=== PATIENT | male | born 1935 | race Caucasian/White ===

== ENCOUNTER 2017-05-17 17:03 | Inpatient (IN) | payer MEDICARE, OTHER ==
[~2017-05-17] VITALS: Ht 180.3 cm; Wt 69.9 kg
--- OUTSIDE RECORDS SUMMARY | 2017-05-17 17:11 | XMS REPORT | Continuity Of Care Document ---
Author Author [facility] Organization [facility] Address [address] [place] [address] Phone Care Team Providers Care Computer Lab Aide Name Role Phone AVIVA COOMBS, EARL Headley PP [phone] SID COOMBS, DEMETRIO Jett AT Results Lab Results Visit/Account #[id number] (November 01, 2015 1:27pm - November 13, 2015 12:32pm) Test Result Date/Time HEMOGLOBIN HEMOGLOBIN(13.5-17.5 G/DL) 12.5 G/DL November 05, 2015 5:19am 11.9 G/DL November 12, 2015 5:20am BASIC METABOLIC PANEL GLUCOSE(70-110 MG/DL) 98 MG/DL November 07, 2015 5:15am 99 MG/DL November 12, 2015 5:20am BLOOD UREA NITROGEN(6-20 MG/DL) 22 MG/DL November 07, 2015 5:15am 17 MG/DL November 12, 2015 5:20am CREATININE(0.50-1.20 MG/DL) 0.95 MG/DL November 07, 2015 5:15am 0.92 MG/DL November 12, 2015 5:20am 05667-3: EST GLOMERULAR FILTRATION RATE(Greater than or equal to 60) Greater than or equal to 60 Result Comments: If the patient is of -[place] descent/extraction multiply the eGFR value by 1.212 to obtain the actual eGFR. >=60 mg/dL Normal 30-59 mg/dL Moderate Kidney Disease 15-29 mg/dL Severe Kidney Disease <15 mg/dL Kidney Failure November 07, 2015 5:15am Greater than or equal to 60 Result Comments: If the patient is of -[place] descent/extraction multiply the eGFR value by 1.212 to obtain the actual eGFR. >=60 mg/dL Normal 30-59 mg/dL Moderate Kidney Disease 15-29 mg/dL Severe Kidney Disease <15 mg/dL Kidney Failure November 12, 2015 5:20am BUN CREATININE RATIO(10.0-20.0 RATIO) 23.0 RATIO November 07, 2015 5:15am 18.0 RATIO November 12, 2015 5:20am SODIUM(135-145 MMOL/L) 131 MMOL/L November 07, 2015 5:15am 129 MMOL/L November 12, 2015 5:20am POTASSIUM(3.6-5.0 MMOL/L) 4.5 MMOL/L November 07, 2015 5:15am 4.4 MMOL/L November 12, 2015 5:20am CHLORIDE(101-111 MMOL/L) 96 MMOL/L November 07, 2015 5:15am 98 MMOL/L November 12, 2015 5:20am 2028-9: CO2(21-31 MMOL/L) 28 MMOL/L November 07, 2015 5:15am 31 MMOL/L November 12, 2015 5:20am ANION GAP(8-18) 12 November 07, 2015 5:15am 4 November 12, 2015 5:20am OSMO CALCULATED(270.0-290.0) 266.0 November 07, 2015 5:15am 260.5 November 12, 2015 5:20am CALCIUM(8.5-10.5 MG/DL) 8.8 MG/DL November 07, 2015 5:15am 7.9 MG/DL November 12, 2015 5:20am Allergies and Adverse Reactions Allergies and Adverse Reactions Patient Unit Number: [id number] Agent Type Reaction Severity Status NO KNOWN DRUG ALLERGIES Drug Allergy Unknown Unknown Active Problem List Problem List Visit/Account #[id number] (November 01, 2015 1:27pm - November 13, 2015 12:32pm) Acute Problems: Code/Condition Comments Documented Start Date Documented Resolved Date Code (s) Subdural hematoma ICD10: I62.00 Subdural hematoma ICD9: 432.1 Subdural hematoma SNOMED: 62305828 Subdural hematoma Maxillary sinus fracture ICD10: S02.401A Fracture of maxillary sinus ICD9: 802.4 Fracture of maxillary sinus SNOMED: 406372302 Fracture of maxillary sinus Orbital fracture ICD10: S02.8XXA Fracture of orbit ICD9: 802.8 Fracture of orbit SNOMED: 48159101 Fracture of orbit Seizure after head injury ICD10: R56.1 Seizure after head injury ICD9: 780.33 Seizure after head injury SNOMED: 819924472 Seizure after head injury Anemia, blood loss ICD10: D50.0 Anemia due to blood loss ICD9: 280.0 Anemia due to blood loss SNOMED: 167149806 Anemia due to blood loss Chronic Problems: Alcohol abuse ICD10: F10.10 Alcohol abuse ICD9: 305.00 Alcohol abuse SNOMED: 53731393 Alcohol abuse Hx of essential hypertension ICD10: Z86.79 History of essential hypertension ICD9: V12.59 History of essential hypertension SNOMED: 270717701 History of essential hypertension BPH (benign prostatic hyperplasia) ICD10: N40.0 BPH (benign prostatic hyperplasia) ICD9: 600.00 BPH (benign prostatic hyperplasia) SNOMED: 020445546 BPH (benign prostatic hyperplasia) Patient Unit Number: [id number] Chronic Problems: Code/Condition Comments Documented Start Date Documented Resolved Date Code (s) Hyponatremia ICD10: E87.1 Hyponatremia ICD9: 276.1 Hyponatremia SNOMED: 66443699 Hyponatremia Plan of Care Plan Of Care No Plan Of Care Data. Vital Signs Vital Signs Visit/Account #[id number] (November 01, 2015 1:27pm - November 13, 2015 12:32pm) Sign First Result Last Result Code(s) Blood Pressure 133/ 50 mm[Hg] On November 01, 2015 1:30pm 115/ 58 mm[Hg] On November 13, 2015 4:13am 8480-6 BP Systolic Heart Rate/Pulse Pulse Rate (adult): 72 /min On November 01, 2015 1:30pm Pulse Rate (adult): 55 /min On November 13, 2015 4:13am 8867-4 Heart Rate 8893-0 Pulse rate Respiratory Rate Respiratory Rate: 16 /min On November 01, 2015 1:30pm Respiratory Rate: 18 /min On November 13, 2015 4:13am 9279-1 Respiratory rate Temperature in Fahrenheit Temperature (Fahrenheit): 97.9 [degF] On November 01, 2015 1:30pm Temperature (Fahrenheit): 97.5 [degF] On November 13, 2015 4:13am 8310-5 Body Temperature Functional Status Functional and Cognitive Status No Functional Status Data Medications Home Medications - Medications that the patient was taking prior to arrival at the hospital Visit/Account #[id number] (November 01, 2015 1:27pm - November 13, 2015 12:32pm) Medication Route Sig/Schedule Precondition/Indication Comments/Instructions Codes TENORMIN(ATENOLOL) 25 MG TAB Dose: 25 MG ORAL DAILY Atenolol 25 MG Oral Tablet (RxNorm): 220682 TENORMIN (ATENOLOL) NDC: 34316844150 TAMSULOSIN HCL(TAMSULOSIN HCL) 0.4 MG CAP.ER.24H Dose: 0.8 MG ORAL AT BEDTIME Tamsulosin hydrochloride 0.4 MG Oral Capsule (RxNorm): 437740 TAMSULOSIN HCL (TAMSULOSIN HCL) NDC: 71948652849 TYLENOL(ACETAMINOPHEN) 325 MG TAB Dose: 650 MG ORAL Q4H PAIN OR FEVER Acetaminophen 325 MG Oral Tablet (RxNorm): 806841 TYLENOL (ACETAMINOPHEN) NDC: 33626338128 KEPPRA(LevETIRAcetam) 500 MG TABLET Dose: 1000 MG ORAL TWICE A DAY Levetiracetam 500 MG Oral Tablet [Keppra] (RxNorm): 838865 KEPPRA (LevETIRAcetam) NDC: 94366744444 THERAGRAN(MULTIVITAMINS THERAPEUTIC) 1 TAB TABLET Dose: 1 TAB ORAL DAILY AT [facility] THERAGRAN (MULTIVITAMINS THERAPEUTIC) NDC: 09898786723 FERROUS GLUConate(FERROUS GLUCONATE) 324 MG TABLET Dose: 324 MG ORAL DAILY ferrous gluconate 324 MG Oral Tablet (RxNorm): 302342 FERROUS GLUConate (FERROUS GLUCONATE) NDC: 57383401027 Inpatient/Ordered Medications - Medications administered during hospital visit Visit/Account #[id number] (November 01, 2015 1:27pm - November 13, 2015 12:32pm) Medication Route Sig/Schedule Precondition/Indication Comments/Instructions Codes MILK OF MAGNESIA 400 MG/5 ML(MAGNESIUM HYDROXIDE) 30 ML SUSPENSION Dose: 30 ML ORAL Q4H PRN Reason: CONSTIPATION Label Comments: not for renal patients. Magnesium Hydroxide 80 MG/ML Oral Suspension (RxNorm): 860193 MILK OF MAGNESIA 400 MG/5 ML (MAGNESIUM HYDROXIDE) NDC: 90683447512 TENORMIN(ATENOLOL) 25 MG TAB Dose: 25 MG ORAL DAILY Label Comments: MAY INCREASE FALL RISK Atenolol 25 MG Oral Tablet (RxNorm): 382450 TENORMIN (ATENOLOL) NDC: 11812552607 KEPPRA(LevETIRAcetam) 500 MG TAB Dose: 1000 MG ORAL TWICE A DAY Label Comments: DO NOT CRUSH MAY INCREASE FALL RISK Levetiracetam 500 MG Oral Tablet [Keppra] (RxNorm): 709661 KEPPRA (LevETIRAcetam) NDC: 69297599965 THERAGRAN(MULTIVITAMINS THERAPEUTIC) 1 TAB TAB Dose: 1 TAB ORAL DAILY AT [facility] THERAGRAN (MULTIVITAMINS THERAPEUTIC) NDC: 39349204005 FLOMAX(TAMSULOSIN HCL) 0.4 MG CAP Dose: 0.8 MG ORAL AT BEDTIME Label Comments: MAY INCREASE FALL RISK Tamsulosin hydrochloride 0.4 MG Oral Capsule (RxNorm): 497640 FLOMAX (TAMSULOSIN HCL) NDC: 07585274135 FERGON(FERROUS GLUCONATE) 324 MG TAB Dose: 324 MG ORAL DAILY Label Comments: TAKE WITH FOOD IF GI UPSET OCCURS. OTHERWISE TAKE BETWEEN MEALS FOR MAXIMUM ABSORPTION. ferrous gluconate 324 MG Oral Tablet (RxNorm): 438935 FERGON (FERROUS GLUCONATE) NDC: 57289552399 AMBIEN(ZOLPIDEM TARTRATE) 5 MG TAB Dose: 2.5 MG ORAL AT BEDTIME Label Comments: MAY INCREASE FALL RISK Zolpidem tartrate 5 MG Oral Tablet (RxNorm): 523221 AMBIEN (ZOLPIDEM TARTRATE) NDC: 88444549650 NORVASC(AmLODIpine BESYLATE) 5 MG TAB Dose: 5 MG ORAL DAILY Label Comments: MAY INCREASE FALL RISK Amlodipine 5 MG Oral Tablet [Norvasc] (RxNorm): 873839 NORVASC (AmLODIpine BESYLATE) NDC: 59126247495 ZESTRIL(LISINOPRIL) 40 MG TAB Dose: 40 MG ORAL DAILY Label Comments: MAY INCREASE FALL RISK Lisinopril 40 MG Oral Tablet (RxNorm): 278093 ZESTRIL (LISINOPRIL) NDC: 85130865795 Discharge Medications - Medications that patient should continue to take. Review with physician Visit/Account #[id number] (November 01, 2015 1:27pm - November 13, 2015 12:32pm) Medication Route Sig/Schedule Precondition/Indication Comments/Instructions Codes TENORMIN(ATENOLOL) 25 MG TAB Dose: 25 MG ORAL DAILY Atenolol 25 MG Oral Tablet (RxNorm): 472840 TENORMIN (ATENOLOL) NDC: 75782869497 TAMSULOSIN HCL(TAMSULOSIN HCL) 0.4 MG CAP.ER.24H Dose: 0.8 MG ORAL AT BEDTIME Tamsulosin hydrochloride 0.4 MG Oral Capsule (RxNorm): 656141 TAMSULOSIN HCL (TAMSULOSIN HCL) NDC: 52003932838 TYLENOL(ACETAMINOPHEN) 325 MG TAB Dose: 650 MG ORAL Q4H PAIN OR FEVER Acetaminophen 325 MG Oral Tablet (RxNorm): 099578 TYLENOL (ACETAMINOPHEN) NDC: 79428684469 THERAGRAN(MULTIVITAMINS THERAPEUTIC) 1 TAB TABLET Dose: 1 TAB ORAL DAILY AT [facility] THERAGRAN (MULTIVITAMINS THERAPEUTIC) NDC: 09599476417 FERROUS GLUConate(FERROUS GLUCONATE) 324 MG TABLET Dose: 324 MG ORAL DAILY ferrous gluconate 324 MG Oral Tablet (RxNorm): 496435 FERROUS GLUConate (FERROUS GLUCONATE) NDC: 15467667336 NORVASC(AmLODIpine BESYLATE) 5 MG TAB Dose: 5 MG ORAL DAILY Amlodipine 5 MG Oral Tablet [Norvasc] (RxNorm): 839959 NORVASC (AmLODIpine BESYLATE) NDC: 37961787600 KEPPRA(LevETIRAcetam) 500 MG TABLET Dose: 1000 MG ORAL TWICE A DAY Levetiracetam 500 MG Oral Tablet [Keppra] (RxNorm): 535360 KEPPRA (LevETIRAcetam) NDC: 27212406992 Prinivil(LISINOPRIL) 40 MG TABLET Dose: 40 MG ORAL DAILY Lisinopril 40 MG Oral Tablet (RxNorm): 566653 Prinivil (LISINOPRIL) NDC: 92477307033 Ambien Carter(ZOLPIDEM TARTRATE) 5 MG TABLET Dose: 2.5 MG ORAL AT BEDTIME Zolpidem tartrate 5 MG Oral Tablet [Ambien] (RxNorm): 006131 Ambien Carter (ZOLPIDEM TARTRATE) [facility]: [id number] History Of Encounters Encounters Visit/Account #[id number] (November 01, 2015 1:27pm - November 13, 2015 12:32pm) Account Status Physican Of Record Reason For Visit Visit Diagnosis Start Date/Time Stop Date/Time IN DEMETRIO LAU MD 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 Discharge Instructions Discharge Instructions Visit/Account #[id number] (November 01, 2015 1:27pm - November 13, 2015 12:32pm) DISCHARGE INSTRUCTIONS Physician Documentation PROVIDER INSTRUCTIONS Discharge Diet As Tolerated Discharge Activity/Weight Bearing Status Full weight bearing Activity as tolerated Comfort Management See discharge medication list Bowel Care Read & follow "Guidelines for Managing Constipation" Other Discharge Instructions No driving until seizure free for 6 months. REASON TO CALL PROVIDER Notify Physician if: You have the following: - temperature greater than 101.5 degrees Fahrenheit - uncontrolled pain - persistent nausea/vomiting - any questions or concerns FOLLOW UP APPOINTMENTS Follow Up With Edwin (FU on facial fx - 12/03/15 @ 2:15 Chris (neurosurgery) in 3-4 weeks for FU on ICH--repeat CT scan and Keppra dosing as directed. Dr. Earl Han- 11/20/15 @ 1:30 IP or OP alcohol tx through [facility]. Also AA. [facility] for residential and speech therapy Follow-up tests/procedures/outpatient needs: BMP at Dr. Han office. Therapy Appointment [facility] to provide residential and speech therapy. A nurse will call to set up a time to see you at home. If you have questions for Home Health please call [phone]. NURSING & THERAPY INSTRUCTIONS Occupational Therapy Continue your arm exercises and coord activities everyday. Sit when you shower for safety. No driving until OK'd by physician. Take Care! Nandini Perkins , OTR/L Physical Therapy Take your time when you are up walking. Use the handrail near your stairs and take your time to go up and down the stairs. Keep progressing your balance with the written balance exercises, using a sturdy surface such as kitchen sink/countertop for safety. When you start going to the gym again, make sure you have someone with you to assist you for safety. Take Care. Maliha Mcgee, PT, DPT. Speech Therapy Continue doing activities to support cognition and memory. Keep your mind active by playing games and doing activities that make you think. Write down information to help you recall it. Look over checks to make sure they are filled out correctly. Have supervision with medication management. Take care. Jim Arana MS [facility] Social History Social History No Social History Data. Immunizations Immunizations Patient Unit Number: [id number] Immunizations No immunizations recorded.
--- OUTSIDE RECORDS SUMMARY | 2017-05-17 17:12 | XMS REPORT | Continuity of Care Document ---
Author Author [facility] - [facility] Address Unknown Phone Unavailable Allergies Active Description Code Type Severity Reaction Onset Reported/Identified Relationship to Patient Clinical Status Yes No Known Drug Allerg N/A N/A Yes NKA Miscellaneous Allergy N/ A N/A 01/05/2009 Yes No Known Drug Allergy 153 Miscellaneous Allergy N/A N/A 07/08/2014 Medications There is no data. 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 08/25/2013 WM IRVIN 4414 ABDOM AORTIC ANEURYSM 10/25/2013 EARL CHICAS 7295 PAIN IN LIMB 10/27/2013 EARL CHICAS 7295 PAIN IN LIMB 11/01/2013 EARL CHICAS 24577 PAINFUL RESPIRATION 11/04/2013 EARL CHICAS 15605 PAINFUL RESPIRATION 03/23/2014 TAMIKA YOUNG 9190 ABRASION NEC 05/13/2014 ASMITA DAVIES ( A 7862 COUGH 08/30/2014 EARL CHICAS 03213 ROTATOR CUFF SYND NOS 09/05/2014 WM IRVIN 4414 ABDOM AORTIC ANEURYSM 09/26/2014 EARL CHICAS 7802 SYNCOPE AND COLLAPSE 09/29/2014 EARL CHICAS 7802 SYNCOPE AND COLLAPSE 10/02/2014 UZIEL TIRADO 27501 HEAD INJURY NOS 01/06/2015 KEKE TIAN 21134 OPEN WOUND OF FOREARM 01/16/2015 PEDRO VASQUEZ V5832 ATTN REMOVAL OF SUTURES 03/15/2015 PEDRO VASQUEZ [id number] LACERATION WITHOUT FOREIGN BODY OF LEFT EYELID AND PERIOCULAR AREA, INITIAL ENCOUNTER 03/15/2015 PEDRO VASQUEZ [id number] LACERATION WITHOUT FOREIGN BODY OF OTHER PART OF HEAD, INITIAL ENCOUNTER 03/15/2015 PEDRO VASQUEZ [id number] FALL ON SAME LEVEL, UNSPECIFIED, INITIAL ENCOUNTER 03/15/2015 PEDRO VASQUEZ S [id number] STRIKING AGAINST OR STRUCK BY OTHER OBJECTS, INITIAL ENCOUNTER 03/15/2015 PEDRO VASQUEZ S [id number] UNSPECIFIED PLACE IN SINGLE-FAMILY (PRIVATE) HOUSE THE PLACE OF OCCURRENCE OF THE EXTERNAL CAUSE 03/15/2015 PEDRO VASQUEZ S Y9301 ACTIVITY, WALKING, MARCHING AND HIKING 03/15/2015 PEDRO VASQUEZ S Y998 OTHER EXTERNAL CAUSE STATUS 09/17/2015 WM IRVIN I71.4 ABDOMINAL AORTIC ANEURYSM, WITHOUT RUPTURE 09/17/2015 WM IRVIN S K40.90 UNILATERAL INGUINAL HERNIA, WITHOUT OBSTRUCTION OR GANGRENE, NOT SPECIFIED RECURRENT 09/17/2015 WM IRVIN K57.30 DIVERTICULOSIS OF LARGE INTESTINE WITHOUT PERFORATION OR ABSCESS WITHOUT BLEEDING 09/17/2015 WM IRVIN K59.00 CONSTIPATION, UNSPECIFIED 09/17/2015 WM IRVIN S K86.1 OTHER CHRONIC PANCREATITIS 09/17/2015 WM IRVIN S N20.0 CALCULUS OF KIDNEY 10/23/2015 MAGDALENA GARSIA A S00.81XA ABRASION OF OTHER PART OF HEAD, INITIAL ENCOUNTER 10/23/2015 MAGDALENA GARSIA S S02.3XXA FALL INJURY, CONFUSION 10/23/2015 MAGDALENA GARSIA P S02.401A MAXILLARY FRACTURE, UNSPECIFIED SIDE, INITIAL ENCOUNTER FOR CLOSED FRACTURE 10/23/2015 MAGDALENA GARSIA S 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, INITIAL ENCOUNTER 10/23/2015 MAGDALENA GARSIA L S W18.39XA OTHER FALL ON SAME LEVEL, INITIAL ENCOUNTER 10/23/2015 MAGDALENA GARSIA L S Y92.[address]ACE OF OCCURRENCE OF THE EXTERNAL CAUSE 10/23/2015 MAGDALENA GARSIA S Y93.01 ACTIVITY, WALKING, MARCHING AND HIKING 10/23/2015 MAGDALENA GARSIA S Y99.8 OTHER EXTERNAL CAUSE STATUS 10/23/2015 MAGDALENA GARSIA S Z79.899 OTHER JAIL (CURRENT) DRUG THERAPY 11/19/2015 EARL CHICAS P E87.1 HYPO-OSMOLALITY AND HYPONATREMIA 12/06/2015 JUAN LUIS COELHO I62.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, UNSPECIFIED 12/06/2015 JUAN LUIS COELHO S06.5X0D 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, SUBSEQUENT ENCOUNTER 12/06/2015 JUAN LUIS COELHO S Z09 ENCOUNTER FOR FOLLOW-UP EXAMINATION AFTER COMPLETED TREATMENT FOR CONDITIONS OTHER THAN MALIGNANT NEOPLASM 12/06/2015 JUAN LUIS COELHO P 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 01/30/2016 EARL CHICAS P R30.0 DYSURIA 05/30/2016 EARL CHICAS S I65.23 OCCLUSION AND STENOSIS OF BILATERAL CAROTID ARTERIES 05/30/2016 EARL CHICAS S R01.1 CARDIAC MURMUR, UNSPECIFIED 05/30/2016 EARL CHICAS P R09.89 OTHER SPECIFIED SYMPTOMS AND SIGNS INVOLVING THE CIRCULATORY AND RESPIRATORY SYSTEMS 08/18/2016 EARL CHICAS S M50.11 CERVICAL DISC DISORDER WITH RADICULOPATHY, HIGH CERVICAL REGION 08/18/2016 EARL CHICAS S M50.122 CERVICAL DISC DISORDER AT C5-C6 LEVEL WITH RADICULOPATHY 08/18/2016 EARL CHICAS S M50.123 CERVICAL DISC DISORDER AT C6-C7 LEVEL WITH RADICULOPATHY 08/18/2016 EARL CHICAS S M89.38 HYPERTROPHY OF BONE, OTHER SITE 08/18/2016 EARL CHICAS S 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 08/18/2016 EARL CHICAS P R20.0 ANESTHESIA OF SKIN 09/19/2016 EARL CHICAS S K40.20 BILATERAL INGUINAL HERNIA, WITHOUT OBSTRUCTION OR GANGRENE, NOT SPECIFIED RECURRENT 09/19/2016 EARL CHICAS S M51.36 OTHER INTERVERTEBRAL DISC DEGENERATION, LUMBAR REGION 09/19/2016 EARL CHICAS S 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 <section xmlns="urn:hl7-org:v3" xmlns:xsi="http:// www.[employer].org/2001/XMLSchema-instance"> <templateId root= "[email or web address]" /> <templateId root= "[id number]" /> <code codeSystemName="LOINC" codeSystem= "[id number]" code="03603-1" displayName="Results" /> <title>Results< /title> <text> <table> <thead> <tr> <th>Test</th> <th>Result</th> <th>Range</th> </tr> </thead> < tbody> <tr> <th colspan="10">CREATININE - 08/25/13 09:10</th> </tr> <tr> <td>CREATININE</td> <td>0.8 mg/dl</td > <td>0.6-1.3</td> </tr> <tr> <th colspan="10"> LIPID PANEL - 03/06/14 08:55</th> </tr> <tr> <td> TRIGLYCERIDES</td> <td>57 mg/dl</td> <td>0-150</td> </ tr> <tr> <td>CHOLESTEROL</td> <td>154 mg/dl</td> <td>0-200</td> </tr> <tr> <td>HDL CHOLESTEROL</td> <td>62 mg/dl</td> <td>40-</td> </tr> <tr> <td>LDL</td> <td>81 mg/dl</td> <td>0-130</td> </tr> <tr> < colspan="10">GLUCOSE - 03/06/14 08:55</th> </tr > <tr> <td>GLUCOSE</td> <td>100 mg/dl</td> <td >70-110</td> </tr> <tr> < colspan="10">INFLUENZA - 17:05</th> </tr> <tr> <td>Serology</td> < td> </td> <td /> </tr> <tr> < colspan="10"> BUN - 09/05/14 08:10</th> </tr> <tr> <td>BUN</td> <td>8 mg/dl</td> <td>7-18</td> </tr> <tr> < colspan="10">CREATININE - 09/05/14 08:10</th> </tr> <tr> <td>CREATININE</td> <td>0.9 mg/dl</td> <td>0.6-1.3</td> </tr> <tr> < colspan="10">COMPREHENSIVE METABOL - 15:15</th> </tr> <tr> <td>CREATININE</td> <td >1.0 mg/dl</td> <td>0.6-1.3</td> </tr> <tr> <td> SODIUM</td> <td>130 mmol/L</td> <td>136-145</td> </tr> <tr> <td>TOTAL BILIRUBIN</td> <td>0.5 mg/dl</td> <td>0.0-1.0</td> </tr> <tr> <td>TOTAL PROTEIN</td> <td>6.9 g/dl</td> <td>6.4-8.2</td> </tr> <tr> <td>ALBUMIN</td> <td>3.8 g/dl</td> <td>3.4-5.0</td> </tr> <tr> <td>ALK. PHOSPHATASE</td> <td>59 U/L</ td> <td>50-136</td> </tr> <tr> <td>BUN</td> <td>9 mg/dl</td> <td>7-18</td> </tr> <tr> <td>CALCIUM</td> <td>8.7 mg/dl</td> <td>8.5-10.1</td> < /tr> <tr> <td>CHLORIDE</td> <td>94 mmol/L</td> <td>98-107</td> </tr> <tr> <td>CO2</td> <td> 27.0 mmol/L</td> <td>21.0-32.0</td> </tr> <tr> < td>GLUCOSE</td> <td>93 mg/dl</td> <td>70-110</td> </tr > <tr> <td>POTASSIUM</td> <td>4.5 mmol/L</td> <td>3.5-5.1</td> </tr> <tr> <td>AST</td> <td>30 U/L</td> <td>15-37</td> </tr> <tr> <td>ALT</td> <td>40 U/L</td> <td>12-78</td> </tr> <tr> <td>AGAP</td> <td>13.5 </td> <td>6.0-16.0</td> </ tr> <tr> <td>BN/CR</td> <td>9.0 </td> <td>6.0- 20.0</td> </tr> <tr> <th colspan="10">[facility] - 05/05/15 15: 15</th> </tr> <tr> <td>HTSH</td> <td>1.31 uiU/ml </td> <td>0.34-4.82</td> </tr> <tr> <th colspan= "10">CBC/ AUTO DIFF - 09/26/14 15:15</th> </tr> <tr> <td> WHITE BLOOD COUNT</td> <td>5.13 10</td> <td>4.60-10.20</td> </tr> <tr> <td>HEMATOCRIT</td> <td>37.9 %</td > <td>42.0-52.0</td> </tr> <tr> <td>HEMOGLOBIN</ td> <td>13.6 g/dl</td> <td>14.0-18.0</td> </tr> <tr> <td>PLATELET COUNT</td> <td>246 10</td> <td>142- 424</td> </tr> <tr> <td>RBC</td> <td>3.65 10</td > <td>4.70-6.10</td> </tr> <tr> <td>MCV</td> <td>103.8 fl</td> <td>80.0-100.0</td> </tr> <tr> <td>MCH</td> <td>37.3 pg</td> <td>26.0-34.0</td> </tr> <tr> <td>MCHC</td> <td>35.9 g/dl</td> <td>29.0-37.0</td> </tr> <tr> <td>RDW</td> < td>12.0 %</td> <td>11.5-14.5</td> </tr> <tr> <td>MPV</td> <td>8.10 fl</td> <td /> </tr> <tr > <td>GRAN%</td> <td>57.9 %</td> <td>37.0- 80.0</td> </tr> <tr> <td>LYMPH%</td> <td> 18.50 %</td> <td>10.00-50.00</td> </tr> <tr> <td>MONO%</td> <td>19.70 %</td> <td>0.00-12.00</td> </tr> <tr> <td>EOS%</td> <td>2.90 %</td > <td>0.00-7.00</td> </tr> <tr> <td>BASO%</ td> <td>1.00 %</td> <td>0.00-2.50</td> </tr> <tr> <td>GRAN#</td> <td>2.97 10</td> <td>2.00-6.90< /td> </tr> <tr> <td>LYMPH#</td> <td>0.95 10</td > <td>0.60-3.40</td> </tr> <tr> <td>MONO#</td> <td>1.01 10</td> <td>0.00-0.90</td> </tr> <tr> <td>EOS#</td> <td>0.15 10</td> <td>0.00-0.50</td> </tr> <tr> <td>BASO#</td> <td>0.05 10</td> <td>0.00-0.20</td> </tr> <tr> <td>MAN DIFF</td> <td>N </td> <td>-</td> </tr> <tr> <td>SEGS</td> <td>64 %</td> <td>40-60</td> </tr> <tr> <td>BANDS</td> <td>0 %</td> < td>0-5</td> </tr> <tr> <td>LYMPHS</td> <td>21 &# 37;</td> <td>20-40</td> </tr> <tr> <td>JUAN A LYMP< /td> <td>1 %</td> <td>0-0</td> </tr> <tr> <td>MONOS</td> <td>13 %</td> <td>4-8</td> < /tr> <tr> <td>EOS</td> <td>1 %</td> <td>0- 5</td> </tr> <tr> <td>BASOS</td> <td>0 %</td > <td>0-2</td> </tr> <tr> <td>MACROCYT</td> <td>1+ </td> <td /> </tr> <tr> <th colspan ="10">ECHOCARDIOGRAM COMPLETE - 09/29/14 08:52</th> </tr> <tr> <td>CSECHOAD</td> <td>see batch scanned documents </td> <td /> </tr> <tr> <th colspan="10">BUN - 09/17/15 07:40 </th> </tr> <tr> <td>BUN</td> <td>13 mg/dl</td> <td>7-18</td> </tr> <tr> <th colspan="10"> CREATININE - 09/17/15 07:40</th> </tr> <tr> <td> CREATININE</td> <td>1.0 mg/dl</td> <td>0.6-1.3</td> </ tr> <tr> <th colspan="10">TROPONIN I - 10/23/15 18:20</th> </tr> <tr> <td>TROP I</td> <td><0.03 ng/ml</td> <td>0.0-0.1</td> </tr> <tr> <th colspan="10">D- DIMER QUANTITATIVE - 10/23/15 18:20</th> </tr> <tr> <td> Chemistry</td> <td> </td> <td /> </tr> <tr> <th colspan="10">COMPREHENSIVE METABOL - 10/23/15 18:20</th> </tr> <tr> <td>CREATININE</td> <td>1.1 mg/dl</td> < td>0.6-1.3</td> </tr> <tr> <td>SODIUM</td> <td> 130 mmol/L</td> <td>136-145</td> </tr> <tr> <td> TOTAL BILIRUBIN</td> <td>0.3 mg/dl</td> <td>0.0-1.0</td> </tr> <tr> <td>TOTAL PROTEIN</td> <td>6.5 g/dl</td> <td>6.4-8.2</td> </tr> <tr> <td>ALBUMIN</td> <td>3.6 g/dl</td> <td>3.4-5.0</td> </tr> <tr> <td>ALK. PHOSPHATASE</td> <td>48 U/L</td> <td>50-136</ td> </tr> <tr> <td>BUN</td> <td>16 mg/dl</td> <td>7-18</td> </tr> <tr> <td>CALCIUM</td> <td>8.3 mg/dl</td> <td>8.5-10.1</td> </tr> <tr> <td>CHLORIDE</td> <td>94 mmol/L</td> <td>98-107</td> </tr> <tr> <td>CO2</td> <td>25.7 mmol/L</td> <td>21.0-32.0</td> </tr> <tr> <td>GLUCOSE</td> <td>92 mg/dl</td> <td>70-110</td> </tr> <tr> <td>POTASSIUM</td> <td>4.6 mmol/L</td> <td>3.5-5.1</td> </tr> <tr> <td>AST</td> <td>34 U/L</td> <td> 15-37</td> </tr> <tr> <td>ALT</td> <td>32 U/L</ td> <td>12-78</td> </tr> <tr> <td>AGAP</td> <td>14.9 </td> <td>6.0-16.0</td> </tr> <tr> <td>BN/CR</td> <td>14.4 </td> <td>6.0-20.0</td> </tr > <tr> <th colspan="10">HTSH - 10/23/15 18:20</th> </tr> <tr> <td>HTSH</td> <td>1.29 uiU/ml</td> <td> 0.34-4.82</td> </tr> <tr> <th colspan="10">CKMB - 18:20</th> </tr> <tr> <td>CKMB</td> <td>4.0 ng/ml</td> <td>0-6.5</td> </tr> <tr> <th colspan ="10">NATRIURETIC PEPTIDE - 10/23/15 18:20</th> </tr> <tr> <td>Chemistry</td> <td> </td> <td /> </tr> < tr> <th colspan="10">CBC/ AUTO DIFF - 10/23/15 18:20</th> </tr> <tr> <td>WHITE BLOOD COUNT</td> <td>5.27 10</td> <td>4.60-10.20</td> </tr> <tr> <td>HEMATOCRIT</td> <td>35.2 %</td> <td>42.0-52.0</td> </tr> <tr > <td>HEMOGLOBIN</td> <td>12.8 g/dl</td> <td>14.0- 18.0</td> </tr> <tr> <td>PLATELET COUNT</td> <td >215 10</td> <td>142-424</td> </tr> <tr> <td>RBC </td> <td>3.38 10</td> <td>4.70-6.10</td> </tr> <tr> <td>MCV</td> <td>104.1 fl</td> <td>80.0-100.0</ td> </tr> <tr> <td>MCH</td> <td>37.9 pg</td> <td>26.0-34.0</td> </tr> <tr> <td>MCHC</td> <td>36.4 g/dl</td> <td>29.0-37.0</td> </tr> <tr> <td>RDW</td> <td>12.1 %</td> <td>11.5-14.5</td> </tr> <tr> <td>MPV</td> <td>8.20 fl</td> < td /> </tr> <tr> <td>GRAN%</td> <td>52.4 &# 37;</td> <td>37.0-80.0</td> </tr> <tr> <td>LYMPH %</td> <td>23.00 %</td> <td>10.00-50.00</td> </ tr> <tr> <td>MONO%</td> <td>20.10 %</td> <td>0.00-12.00</td> </tr> <tr> <td>EOS%</td> <td>3.60 %</td> <td>0.00-7.00</td> </tr> <tr> <td>BASO%</td> <td>0.90 %</td> <td>0.00-2.50< /td> </tr> <tr> <td>GRAN#</td> <td>2.76 10</td> <td>2.00-6.90</td> </tr> <tr> <td>LYMPH#</td> <td>1.21 10</td> <td>0.60-3.40</td> </tr> <tr> <td>MONO#</td> <td>1.06 10</td> <td>0.00-0.90</td> </tr> <tr> <td>EOS#</td> <td>0.19 10</td> <td>0.00-0.50</td> </tr> <tr> <td>BASO#</td> <td>0.05 10</td> <td>0.00-0.20</td> </tr> <tr> < td>MAN DIFF</td> <td>N </td> <td>-</td> </tr> <tr> <td>SEGS</td> <td>56 %</td> <td>40-60</td> </tr> <tr> <td>BANDS</td> <td> 2 %</td> <td>0-5</td> </tr> <tr> <td>LYMPHS< /td> <td>25 %</td> <td>20-40</td> </tr> <tr > <td>JUAN A LYMP</td> <td>0 %</td> <td>0-0</td> </tr> <tr> <td>MONOS</td> <td>15 %</td> <td>4-8</td> </tr> <tr> <td>EOS</td> <td>2 & #37;</td> <td>0-5</td> </tr> <tr> <td>BASOS</td > <td>0 %</td> <td>0-2</td> </tr> <tr> <td>POIKILO</td> <td>SMALL </td> <td /> </tr> <tr> <td>MACROCYT</td> <td>1+ </td> <td /> </tr> <tr> <th colspan="10">CPK TOTAL - 10/23/15 18:20</th> </tr> <tr> <td>CPK TOTAL</td> <td>77 U/L</td> <td>21-232</td> </tr> <tr> <th colspan="10"> ECHOCARDIOGRAM COMPLETE - 05/30/16 13:18</th> </tr> <tr> <td>CSECHOAD</td> <td>See scanned documents. </td> <td /> </tr> <tr> <th colspan="10">MICROALBUMIN - 10/03/16 08:35</ th> </tr> <tr> <td>MICR ALB</td> <td>10 mg/l</td > <td>0-20</td> </tr> <tr> <td>UCREAT</td> <td>50 mg/dl</td> <td>10-300</td> </tr> <tr> <td>A:C</td> <td>20 mg/G</td> <td>-<=30</td> </tr > <tr> <th colspan="10">URINALYSIS - 10/03/16 08:35</th> </tr> <tr> <td>SPECIFIC GRAVITY</td> <td>1.015 </td> <td /> </tr> <tr> <td>COLOR</td> <td> YELLOW </td> <td>YELLOW</td> </tr> <tr> <td> CLARITY</td> <td>CLEAR </td> <td>CLEAR</td> </tr> <tr> <td>GLUCOSE</td> <td>NEGATIVE mg/dl</td> <td> NEGATIVE</td> </tr> <tr> <td>BILI</td> <td> NEGATIVE </td> <td>NEGATIVE</td> </tr> <tr> <td> KETONE</td> <td>NEGATIVE </td> <td>NEGATIVE</td> </tr> <tr> <td>PH</td> <td>7.5 </td> <td>5.0-7.5</ td> </tr> <tr> <td>PROTEIN</td> <td>NEGATIVE </ td> <td>NEGATIVE</td> </tr> <tr> <td>UROBILI</td > <td>0.2 mg/dl</td> <td>0.2-1.0</td> </tr> <tr > <td>NITRITE</td> <td>NEGATIVE </td> <td>NEGATIVE</ td> </tr> <tr> <td>BLOOD</td> <td>NEGATIVE </td > <td>NEGATIVE</td> </tr> <tr> <td>LEUKOCYT</td > <td>NEGATIVE </td> <td>NEGATIVE</td> </tr> <tr > <td>WBC</td> <td>NONE </td> <td>NONE SEEN</td> </tr> <tr> <td>RBC</td> <td>NONE </td> <td >NONE SEEN</td> </tr> <tr> <td>BACTERIA</td> <td >NEGATIVE /LPF</td> <td>NONE SEEN</td> </tr> <tr> <td>SQ EPI</td> <td>NONE /LPF</td> <td>NONE SEEN</td> </tr> <tr> <th colspan="10">CBC/ AUTO DIFF - 10/03/16 08:35</ th> </tr> <tr> <td>WHITE BLOOD COUNT</td> <td> 4.43 10</td> <td>4.60-10.20</td> </tr> <tr> <td> HEMATOCRIT</td> <td>40.1 %</td> <td>42.0-52.0</td> </tr> <tr> <td>HEMOGLOBIN</td> <td>14.0 g/dl</td> <td>14.0-18.0</td> </tr> <tr> <td>PLATELET COUNT</td > <td>206 10</td> <td>142-424</td> </tr> <tr> <td>RBC</td> <td>3.90 10</td> <td>4.70-6.10</td> </tr> <tr> <td>MCV</td> <td>102.8 fl</td> < td>80.0-100.0</td> </tr> <tr> <td>MCH</td> <td> 35.9 pg</td> <td>26.0-34.0</td> </tr> <tr> <td> MCHC</td> <td>34.9 g/dl</td> <td>29.0-37.0</td> </tr> <tr> <td>RDW</td> <td>12.9 %</td> <td>11.5 -14.5</td> </tr> <tr> <td>MPV</td> <td>8.40 fl</ td> <td /> </tr> <tr> <td>GRAN%</td> <td>32.3 %</td> <td>37.0-80.0</td> </tr> <tr> <td>LYMPH%</td> <td>42.20 %</td> <td>10.00-50.00 </td> </tr> <tr> <td>MONO%</td> <td>20.30 &# 37;</td> <td>0.00-12.00</td> </tr> <tr> <td>EOS& #37;</td> <td>4.10 %</td> <td>0.00-7.00</td> </tr> <tr> <td>BASO%</td> <td>1.10 %</td> < td>0.00-2.50</td> </tr> <tr> <td>GRAN#</td> <td> 1.43 10</td> <td>2.00-6.90</td> </tr> <tr> <td> LYMPH#</td> <td>1.87 10</td> <td>0.60-3.40</td> </tr> <tr> <td>MONO#</td> <td>0.90 10</td> <td>0.00- 0.90</td> </tr> <tr> <td>EOS#</td> <td>0.18 10</ td> <td>0.00-0.50</td> </tr> <tr> <td>BASO#</td > <td>0.05 10</td> <td>0.00-0.20</td> </tr> <tr > <td>MAN DIFF</td> <td>N </td> <td>- </td> </tr> <tr> <td>SEGS</td> <td>37 %</ td> <td>40-60</td> </tr> <tr> <td>BANDS</td> <td>1 %</td> <td>0-5</td> </tr> <tr> <td>LYMPHS</td> <td>45 %</td> <td>20-40</td> </tr> <tr> <td>JUAN A LYMP</td> <td>0 %</td> <td>0 -0</td> </tr> <tr> <td>MONOS</td> <td>13 %</ td> <td>4-8</td> </tr> <tr> <td>EOS</td> <td>3 %</td> <td>0-5</td> </tr> <tr> <td> BASOS</td> <td>1 %</td> <td>0-2</td> </tr> < tr> <td>PLTMORPH</td> <td>NORMAL </td> <td /> </tr> <tr> <td>MACROCYT</td> <td>1+ </td> <td /> </tr> <tr> <th colspan="10">[facility] - 08:35</th> </tr> <tr> <td>CREATININE</td> <td>1.2 mg/dl</td> <td>0.6-1.3</td> </tr> <tr> <td>SODIUM</td> <td>136 mmol/L</td> <td>136-145</td> </tr> <tr> <td>TOTAL BILIRUBIN</td> <td>0.6 mg/dl</td> <td>0.0-1.0</td> </tr> <tr> <td>TOTAL PROTEIN</ td> <td>7.1 g/dl</td> <td>6.4-8.2</td> </tr> <tr > <td>ALBUMIN</td> <td>4.0 g/dl</td> <td>3.4-5.0</td > </tr> <tr> <td>ALK. PHOSPHATASE</td> <td>55 U/ L</td> <td>50-136</td> </tr> <tr> <td>BUN</td> <td>11 mg/dl</td> <td>7-18</td> </tr> <tr> <td>CALCIUM</td> <td>8.7 mg/dl</td> <td>8.5-10.1</td> </tr> <tr> <td>CHLORIDE</td> <td>99 mmol/L</td> <td>98-107</td> </tr> <tr> <td>CO2</td> <td>29.9 mmol/L</td> <td>21.0-32.0</td> </tr> <tr> <td>GLUCOSE</td> <td>102 mg/dl</td> <td>70-110</td> </tr> <tr> <td>POTASSIUM</td> <td>3.8 mmol/L</td> <td>3.5-5.1</td> </tr> <tr> <td>AST</td> <td>24 U/L</td> <td>15-37</td> </tr> <tr> <td> ALT</td> <td>21 U/L</td> <td>12-78</td> </tr> < tr> <td>AGAP</td> <td>10.9 </td> <td>6.0-16.0</td> </tr> <tr> <td>BN/CR</td> <td>9.2 </td> <td>6.0-20.0</td> </tr> <tr> <th colspan="10">LIPID PANEL - 10/03/16 08:35</th> </tr> <tr> <td>TRIGLYCERIDES< /td> <td>110 mg/dl</td> <td>0-150</td> </tr> <tr > <td>CHOLESTEROL</td> <td>173 mg/dl</td> <td>0-200</ td> </tr> <tr> <td>HDL CHOLESTEROL</td> <td>63 mg/dl</td> <td>40-</td> </tr> <tr> <td>LDL</td> <td>88 mg/dl</td> <td>0-130</td> </tr> <tr> <th colspan="10">URINALYSIS - 05/07/17 13:25</th> </tr> <tr > <td>SPECIFIC GRAVITY</td> <td>1.3015 </td> <td /> </tr> <tr> <td>COLOR</td> <td>YELLOW </td> <td>YELLOW</td> </tr> <tr> <td>CLARITY</td> <td>CLEAR </td> <td>CLEAR</td> </tr> <tr> <td> GLUCOSE</td> <td>NEGATIVE mg/dl</td> <td>NEGATIVE</td> </tr> <tr> <td>BILI</td> <td>NEGATIVE </td> < td>NEGATIVE</td> </tr> <tr> <td>KETONE</td> <td> NEGATIVE </td> <td>NEGATIVE</td> </tr> <tr> <td> PH</td> <td>7.5 </td> <td>5.0-7.5</td> </tr> <tr > <td>PROTEIN</td> <td>NEGATIVE </td> <td>NEGATIVE</ td> </tr> <tr> <td>UROBILI</td> <td>0.2 mg/dl</ td> <td>0.2-1.0</td> </tr> <tr> <td>NITRITE</td > <td>NEGATIVE </td> <td>NEGATIVE</td> </tr> <tr > <td>BLOOD</td> <td>NEGATIVE </td> <td>NEGATIVE</td > </tr> <tr> <td>LEUKOCYT</td> <td>NEGATIVE </td > <td>NEGATIVE</td> </tr> <tr> <td>WBC</td> <td>NONE </td> <td>NONE SEEN</td> </tr> <tr> <td>RBC</td> <td>NONE </td> <td>NONE SEEN</td> </tr > <tr> <td>BACTERIA</td> <td>NEGATIVE /LPF</td> <td>NONE SEEN</td> </tr> <tr> <td>SQ EPI</td> <td>NONE /LPF</td> <td>NONE SEEN</td> </tr> <tr> <th colspan="10">COMPREHENSIVE METABOL - 05/07/17 13:25</th> </tr> <tr> <td>CREATININE</td> <td>1.0 mg/dl</td> <td >0.6-1.3</td> </tr> <tr> <td>SODIUM</td> <td> 131 mmol/L</td> <td>136-145</td> </tr> <tr> <td> TOTAL BILIRUBIN</td> <td>0.5 mg/dl</td> <td>0.0-1.0</td> </tr> <tr> <td>TOTAL PROTEIN</td> <td>7.4 g/dl</td> <td>6.4-8.2</td> </tr> <tr> <td>ALBUMIN</td> <td>4.1 g/dl</td> <td>3.4-5.0</td> </tr> <tr> <td>ALK. PHOSPHATASE</td> <td>55 U/L</td> <td>50-136</ td> </tr> <tr> <td>BUN</td> <td>13 mg/dl</td> <td>7-18</td> </tr> <tr> <td>CALCIUM</td> <td>8.9 mg/dl</td> <td>8.5-10.1</td> </tr> <tr> <td>CHLORIDE</td> <td>96 mmol/L</td> <td>98-107</td> </tr> <tr> <td>CO2</td> <td>30.7 mmol/L</td> <td>21.0-32.0</td> </tr> <tr> <td>GLUCOSE</td> <td>100 mg/dl</td> <td>70-110</td> </tr> <tr> <td>POTASSIUM</td> <td>4.5 mmol/L</td> <td>3.5-5.1</td> </tr> <tr> <td>AST</td> <td>31 U/L</td> < td>15-37</td> </tr> <tr> <td>ALT</td> <td>29 U/L </td> <td>12-78</td> </tr> <tr> <td>AGAP</td> <td>8.8 </td> <td>6.0-16.0</td> </tr> <tr> <td>BN/CR</td> <td>13.0 </td> <td>6.0-20.0</td> </ tr> <tr> <th colspan="10">HTSH - 05/07/17 13:25</th> </tr > <tr> <td>HTSH</td> <td>1.50 uiU/ml</td> <td> 0.35-3.74</td> </tr> <tr> <th colspan="10">VITAMIN B12 - 05/07/17 13:25</th> </tr> <tr> <td>VIT B12</td> <td>1096 pg/ml</td> <td>200-900</td> </tr> <tr> <th colspan="10">CBC/ AUTO DIFF - 05/07/17 13:25</th> </tr> <tr> <td>WHITE BLOOD COUNT</td> <td>3.51 10</td> <td>4.60- 10.20</td> </tr> <tr> <td>HEMATOCRIT</td> <td> 40.9 %</td> <td>42.0-52.0</td> </tr> <tr> < td>HEMOGLOBIN</td> <td>15.0 g/dl</td> <td>14.0-18.0</td> </tr> <tr> <td>PLATELET COUNT</td> <td>219 10</td> <td>142-424</td> </tr> <tr> <td>RBC</td> <td>3.96 10</td> <td>4.70-6.10</td> </tr> <tr> <td>MCV</td> <td>103.3 fl</td> <td>80.0-100.0</td> < /tr> <tr> <td>MCH</td> <td>37.9 pg</td> <td> 26.0-34.0</td> </tr> <tr> <td>MCHC</td> <td> 36.7 g/dl</td> <td>29.0-37.0</td> </tr> <tr> <td >RDW</td> <td>12.6 %</td> <td>11.5-14.5</td> </tr> <tr> <td>MPV</td> <td>8.20 fl</td> <td /> </tr> <tr> <td>GRAN%</td> <td>42.0 %</td> <td>37.0-80.0</td> </tr> <tr> <td>LYMPH%</ td> <td>27.60 %</td> <td>10.00-50.00</td> </tr> <tr> <td>MONO%</td> <td>25.90 %</td> <td >0.00-12.00</td> </tr> <tr> <td>EOS%</td> < td>3.40 %</td> <td>0.00-7.00</td> </tr> <tr> <td>BASO%</td> <td>1.10 %</td> <td>0.00-2.50</td> </tr> <tr> <td>GRAN#</td> <td>1.47 10</td> <td>2.00-6.90</td> </tr> <tr> <td>LYMPH#</td> <td>0.97 10</td> <td>0.60-3.40</td> </tr> <tr> <td>MONO#</td> <td>0.91 10</td> <td>0.00-0.90</td> < /tr> <tr> <td>EOS#</td> <td>0.12 10</td> <td> 0.00-0.50</td> </tr> <tr> <td>BASO#</td> <td> 0.04 10</td> <td>0.00-0.20</td> </tr> <tr> <td> SEGS</td> <td>48 %</td> <td>40-60</td> </tr> <tr> <td>LYMPHS</td> <td>29 %</td> <td>20-40</ td> </tr> <tr> <td>MONOS</td> <td>20 %</td> <td>4-8</td> </tr> <tr> <td>EOS</td> < td>3 %</td> <td>0-5</td> </tr> <tr> <td> ANISO</td> <td>1+ </td> <td /> </tr> <tr> <td>META</td> <td>1+ %</td> <td>0-0</td> </tr> <tr> <th colspan="10">LIPID PANEL - 05/07/17 13:25</th> </tr> <tr> <td>TRIGLYCERIDES</td> <td>98 mg/dl</td> <td>0-150</td> </tr> <tr> <td>CHOLESTEROL</td> <td>192 mg/dl</td> <td>0-200</td> </tr> <tr> <td>HDL CHOLESTEROL</td> <td>65 mg/dl</td> <td>40-</td> </tr> <tr> <td>LDL</td> <td>107 mg/dl</td> <td>0-130</td> </tr> </tbody> </table> </text> <entry> <organizer moodCode="EVN" classCode="BATTERY"> <templateId root= "[id number]" /> <id nullFlavor="NA" /> <code codeSystem="local" code="CREAT" displayName="CREATININE" /> <statusCode code="completed" /> <component> <observation moodCode="EVN" classCode="OBS"> <templateId root="[id number]" /> <id nullFlavor="NA" /> <code codeSystem="local" code="CREAT" displayName="CREATININE" /> <statusCode code="completed" /> < effectiveTime value="[id number]" /> <value unit="mg/dl" xsi:type="PQ " value="0.8" /> <referenceRange> <observationRange> <text>0.6-1.3</text> </observationRange> </ referenceRange> </observation> </component> </organizer> </entry > <entry> <organizer moodCode="EVN" classCode="BATTERY"> <templateId root="[id number]" /> <id nullFlavor="NA" /> <code codeSystem="local" code="LIPID" displayName="LIPID PANEL" /> <statusCode code="completed" /> <component> <observation moodCode="EVN" classCode="OBS"> <templateId root="[id number]...4.2" /> <id nullFlavor="NA" /> <code codeSystem="local" code="TRIG" displayName="TRIGLYCERIDES" /> <statusCode code="completed" /> <effectiveTime value="[id number]" /> <value unit="mg/dl" xsi:type= "PQ" value="57" /> <referenceRange> <observationRange> <text>0-150</text> </observationRange> </ referenceRange> </observation> </component> <component> <observation moodCode="EVN" classCode="OBS"> <templateId root= "16.840.1.360385.10..22.4.2" /> <id nullFlavor="NA" /> < code codeSystem="local" code="CHOL" displayName="CHOLESTEROL" /> < statusCode code="completed" /> <effectiveTime value="[id number]" /> <value unit="mg/dl" xsi:type="PQ" value="154" /> < referenceRange> <observationRange> <text>0-200</text> </observationRange> </referenceRange> </observation> </component> <component> <observation moodCode="EVN" classCode= "OBS"> <templateId root="16.840.1.025280.10...4.2" /> < id nullFlavor="NA" /> <code codeSystem="local" code="HDL" displayName= "HDL CHOLESTEROL" /> <statusCode code="completed" /> < effectiveTime value="009529296238" /> <value unit="mg/dl" xsi:type="PQ " value="62" /> <referenceRange> <observationRange> <text>40-</text> </observationRange> </referenceRange > </observation> </component> <component> <observation moodCode="EVN" classCode="OBS"> <templateId root= "07.10.840.1.027555.10...4.2" /> <id nullFlavor="NA" /> < code codeSystem="local" code="LDL" displayName="LDL" /> <statusCode code="completed" /> <effectiveTime value="302205896252" /> < value unit="mg/dl" xsi:type="PQ" value="81" /> <referenceRange> <observationRange> <text>0-130</text> </ observationRange> </referenceRange> </observation> </ component> </organizer> </entry> <entry> <organizer moodCode="EVN" classCode="BATTERY"> <templateId root="07.10.840.1.888525.10..22.4.1" /> <id nullFlavor="NA" /> <code codeSystem="local" code="GLU" displayName ="GLUCOSE" /> <statusCode code="completed" /> <component> < observation moodCode="EVN" classCode="OBS"> <templateId root= "2.16.840.1.961597.10..22.4.2" /> <id nullFlavor="NA" /> < code codeSystem="local" code="GLU" displayName="GLUCOSE" /> < statusCode code="completed" /> <effectiveTime value="[id number]" /> <value unit="mg/dl" xsi:type="PQ" value="100" /> < referenceRange> <observationRange> <text>70-110</text> </observationRange> </referenceRange> </observation> </component> </organizer> </entry> <entry> <organizer moodCode= "EVN" classCode="BATTERY"> <templateId root="2.16.840.1.904153.10..22.4.1 " /> <id nullFlavor="NA" /> <code codeSystem="local" code="FLU" displayName="INFLUENZA" /> <statusCode code="completed" /> <component > <observation moodCode="EVN" classCode="OBS"> <templateId root= "2.16.840.1.680680.10..22.4.2" /> <id nullFlavor="NA" /> < code codeSystem="local" code="SR" displayName="Serology" /> < statusCode code="completed" /> <effectiveTime value="[id number]" /> <value xsi:type="ST" value="<pre><b>INFLUENZA</b> POSITIVE A</pre>" /> <referenceRange> <observationRange> <text /> </observationRange> </referenceRange> </observation> </component> </organizer> </entry> <entry> <organizer moodCode= "EVN" classCode="BATTERY"> <templateId root="2.16.840.1.859579.10..22.4.1 " /> <id nullFlavor="NA" /> <code codeSystem="local" code="BUN" displayName="BUN" /> <statusCode code="completed" /> <component> <observation moodCode="EVN" classCode="OBS"> <templateId root= "07.10.840.1.649191.03.13.22.4.2" /> <id nullFlavor="NA" /> < code codeSystem="local" code="BUN" displayName="BUN" /> <statusCode code="completed" /> <effectiveTime value="" /> < value unit="mg/dl" xsi:type="PQ" value="8" /> <referenceRange> <observationRange> <text>7-18</text> </ observationRange> </referenceRange> </observation> </ component> </organizer> </entry> <entry> <organizer moodCode="EVN" classCode="BATTERY"> <templateId root="07.10.840.1.517464.03.13.22.4.1" /> <id nullFlavor="NA" /> <code codeSystem="local" code="CREAT" displayName="CREATININE" /> <statusCode code="completed" /> <component > <observation moodCode="EVN" classCode="OBS"> <templateId root= "216.840.1.919998.10..4.2" /> <id nullFlavor="NA" /> < code codeSystem="local" code="CREAT" displayName="CREATININE" /> < statusCode code="completed" /> <effectiveTime value="000670524358" /> <value unit="mg/dl" xsi:type="PQ" value="0.9" /> < referenceRange> <observationRange> <text>0.6-1.3</text> </observationRange> </referenceRange> </observation > </component> </organizer> </entry> <entry> <organizer moodCode= "EVN" classCode="BATTERY"> <templateId root="2.16.840.1.788296.10..22.4.1 " /> <id nullFlavor="NA" /> <code codeSystem="local" code="CMP" displayName="COMPREHENSIVE METABOL" /> <statusCode code="completed" /> <component> <observation moodCode="EVN" classCode="OBS"> < templateId root="2.16.840.1.246215.10..4.2" /> <id nullFlavor="NA " /> <code codeSystem="local" code="CREAT" displayName="CREATININE" /> <statusCode code="completed" /> <effectiveTime value= "" /> <value unit="mg/dl" xsi:type="PQ" value="1.0" /> <referenceRange> <observationRange> <text>0.6-1.3< /text> </observationRange> </referenceRange> </ observation> </component> <component> <observation moodCode= "EVN" classCode="OBS"> <templateId root="216.840.1.567298.10..4.2 " /> <id nullFlavor="NA" /> <code codeSystem="local" code="NA " displayName="SODIUM" /> <statusCode code="completed" /> < effectiveTime value="" /> <value unit="mmol/L" xsi:type="PQ " value="130" /> <interpretationCode codeSystem="local" code="L" /> <referenceRange> <observationRange> <text>136-145 </text> </observationRange> </referenceRange> </ observation> </component> <component> <observation moodCode= "EVN" classCode="OBS"> <templateId root="216.840.1.729392.10..4.2 " /> <id nullFlavor="NA" /> <code codeSystem="local" code= "TBIL" displayName="TOTAL BILIRUBIN" /> <statusCode code="completed" / > <effectiveTime value="" /> <value unit="mg/dl" xsi:type="PQ" value="0.5" /> <referenceRange> < observationRange> <text>0.0-1.0</text> </ observationRange> </referenceRange> </observation> </ component> <component> <observation moodCode="EVN" classCode="OBS"> <templateId root="07.10.840.1.921968.03.13.22.4.2" /> <id nullFlavor="NA" /> <code codeSystem="local" code="TP" displayName= "TOTAL PROTEIN" /> <statusCode code="completed" /> < effectiveTime value="" /> <value unit="g/dl" xsi:type="PQ" value="6.9" /> <referenceRange> <observationRange> <text>6.4-8.2</text> </observationRange> </ referenceRange> </observation> </component> <component> <observation moodCode="EVN" classCode="OBS"> <templateId root= "16.840.1.576522.10..4.2" /> <id nullFlavor="NA" /> < code codeSystem="local" code="ALB" displayName="ALBUMIN" /> < statusCode code="completed" /> <effectiveTime value="" /> <value unit="g/dl" xsi:type="PQ" value="3.8" /> < referenceRange> <observationRange> <text>3.4-5.0</text> </observationRange> </referenceRange> </observation > </component> <component> <observation moodCode="EVN" classCode="OBS"> <templateId root="07.10.840.1.989378.10..4.2" /> <id nullFlavor="NA" /> <code codeSystem="local" code="ALKP" displayName="ALK. PHOSPHATASE" /> <statusCode code="completed" /> <effectiveTime value="" /> <value unit="U/L" xsi:type= "PQ" value="59" /> <referenceRange> <observationRange> <text>50-136</text> </observationRange> </ referenceRange> </observation> </component> <component> <observation moodCode="EVN" classCode="OBS"> <templateId root= "840.1.104063.03.13.22.4.2" /> <id nullFlavor="NA" /> < code codeSystem="local" code="BUN" displayName="BUN" /> <statusCode code="completed" /> <effectiveTime value="" /> < value unit="mg/dl" xsi:type="PQ" value="9" /> <referenceRange> <observationRange> <text>7-18</text> </ observationRange> </referenceRange> </observation> </ component> <component> <observation moodCode="EVN" classCode="OBS"> <templateId root="840.1.264502..22.4.2" /> <id nullFlavor="NA" /> <code codeSystem="local" code="CA" displayName= "CALCIUM" /> <statusCode code="completed" /> <effectiveTime value="678765242526" /> <value unit="mg/dl" xsi:type="PQ" value="8.7" / > <referenceRange> <observationRange> <text>8.5 -10.1</text> </observationRange> </referenceRange> </ observation> </component> <component> <observation moodCode= "EVN" classCode="OBS"> <templateId root="216.840.1.862911.03.13.22.4.2 " /> <id nullFlavor="NA" /> <code codeSystem="local" code="CL " displayName="CHLORIDE" /> <statusCode code="completed" /> < effectiveTime value="741328039129" /> <value unit="mmol/L" xsi:type="PQ " value="94" /> <interpretationCode codeSystem="local" code="L" /> <referenceRange> <observationRange> <text>98-107</ text> </observationRange> </referenceRange> </ observation> </component> <component> <observation moodCode= "EVN" classCode="OBS"> <templateId root="07.10.840.1.024163.03.13.22.4.2 " /> <id nullFlavor="NA" /> <code codeSystem="local" code="CO2 " displayName="CO2" /> <statusCode code="completed" /> < effectiveTime value="409191589160" /> <value unit="mmol/L" xsi:type="PQ " value="27.0" /> <referenceRange> <observationRange> <text>21.0-32.0</text> </observationRange> </ referenceRange> </observation> </component> <component> <observation moodCode="EVN" classCode="OBS"> <templateId root= "2.840.1.436028.03.13.22.4.2" /> <id nullFlavor="NA" /> < code codeSystem="local" code="GLU" displayName="GLUCOSE" /> < statusCode code="completed" /> <effectiveTime value="" /> <value unit="mg/dl" xsi:type="PQ" value="93" /> < referenceRange> <observationRange> <text>70-110</text> </observationRange> </referenceRange> </observation> </component> <component> <observation moodCode="EVN" classCode ="OBS"> <templateId root="2.16.840.1.309195.10..22.4.2" /> < id nullFlavor="NA" /> <code codeSystem="local" code="K" displayName= "POTASSIUM" /> <statusCode code="completed" /> <effectiveTime value="" /> <value unit="mmol/L" xsi:type="PQ" value="4.5" /> <referenceRange> <observationRange> <text> 3.5-5.1</text> </observationRange> </referenceRange> </observation> </component> <component> <observation moodCode= "EVN" classCode="OBS"> <templateId root="2.16.840.1.242514.10..22.4.2 " /> <id nullFlavor="NA" /> <code codeSystem="local" code="AST " displayName="AST" /> <statusCode code="completed" /> < effectiveTime value="" /> <value unit="U/L" xsi:type="PQ" value="30" /> <referenceRange> <observationRange> <text>15-37</text> </observationRange> </referenceRange > </observation> </component> <component> <observation moodCode="EVN" classCode="OBS"> <templateId root= "16.840.1.234528.10..22.4.2" /> <id nullFlavor="NA" /> < code codeSystem="local" code="ALT" displayName="ALT" /> <statusCode code="completed" /> <effectiveTime value="" /> < value unit="U/L" xsi:type="PQ" value="40" /> <referenceRange> <observationRange> <text>12-78</text> </ observationRange> </referenceRange> </observation> </ component> <component> <observation moodCode="EVN" classCode="OBS"> <templateId root="07.10.840.1.528430.03.13.22.4.2" /> <id nullFlavor="NA" /> <code codeSystem="local" code="AGAP" displayName= "AGAP" /> <statusCode code="completed" /> <effectiveTime value ="" /> <value unit="" xsi:type="PQ" value="13.5" /> <referenceRange> <observationRange> <text>6.0-16.0</ text> </observationRange> </referenceRange> </ observation> </component> <component> <observation moodCode= "EVN" classCode="OBS"> <templateId root="07.10.840.1.902697..22.4.2 " /> <id nullFlavor="NA" /> <code codeSystem="local" code="BN/ CR" displayName="BN/CR" /> <statusCode code="completed" /> < effectiveTime value="" /> <value unit="" xsi:type="PQ" value="9.0" /> <referenceRange> <observationRange> <text>6.0-20.0</text> </observationRange> </ referenceRange> </observation> </component> </organizer> </entry > <entry> <organizer moodCode="EVN" classCode="BATTERY"> <templateId root="07.10.840.1.503943.10..4.1" /> <id nullFlavor="NA" /> <code codeSystem="local" code="TSH" displayName="HTSH" /> <statusCode code= "completed" /> <component> <observation moodCode="EVN" classCode= "OBS"> <templateId root="840.1.119352.03.13.22.4.2" /> < id nullFlavor="NA" /> <code codeSystem="local" code="TSH" displayName= "HTSH" /> <statusCode code="completed" /> <effectiveTime value ="219933431004" /> <value unit="uiU/ml" xsi:type="PQ" value="1.31" /> <referenceRange> <observationRange> <text>0.34- 4.82</text> </observationRange> </referenceRange> </ observation> </component> </organizer> </entry> <entry> <organizer moodCode="EVN" classCode="BATTERY"> <templateId root= "840.1.502210.03.13.22.4.1" /> <id nullFlavor="NA" /> <code codeSystem="local" code="CBC AUTO" displayName="CBC/ AUTO DIFF" /> < statusCode code="completed" /> <component> <observation moodCode= "EVN" classCode="OBS"> <templateId root="07.10.840.1.102862.10..4.2 " /> <id nullFlavor="NA" /> <code codeSystem="local" code="WBC " displayName="WHITE BLOOD COUNT" /> <statusCode code="completed" /> <effectiveTime value="219842314902" /> <value unit="10" xsi: type="PQ" value="5.13" /> <referenceRange> <observationRange > <text>4.60-10.20</text> </observationRange> < /referenceRange> </observation> </component> <component> <observation moodCode="EVN" classCode="OBS"> <templateId root= "2.16.840.1.848048.10.20.22.4.2" /> <id nullFlavor="NA" /> < code codeSystem="local" code="HCT" displayName="HEMATOCRIT" /> < statusCode code="completed" /> <effectiveTime value="202097410450" /> <value unit="%" xsi:type="PQ" value="37.9" /> < interpretationCode codeSystem="local" code="L" /> <referenceRange> <observationRange> <text>42.0-52.0</text> </ observationRange> </referenceRange> </observation> </ component> <component> <observation moodCode="EVN" classCode="OBS"> <templateId root="2.16.840.1.513214.10.20.22.4.2" /> <id nullFlavor="NA" /> <code codeSystem="local" code="HGB" displayName= "HEMOGLOBIN" /> <statusCode code="completed" /> < effectiveTime value="544795845309" /> <value unit="g/dl" xsi:type="PQ" value="13.6" /> <interpretationCode codeSystem="local" code="L" /> <referenceRange> <observationRange> <text>14.0- 18.0</text> </observationRange> </referenceRange> </ observation> </component> <component> <observation moodCode= "EVN" classCode="OBS"> <templateId root="07.10.840.1.457352.10.20.22.4.2 " /> <id nullFlavor="NA" /> <code codeSystem="local" code= "PLT.COUT" displayName="PLATELET COUNT" /> <statusCode code="completed " /> <effectiveTime value="" /> <value unit="10" xsi:type="PQ" value="246" /> <referenceRange> < observationRange> <text>142-424</text> </ observationRange> </referenceRange> </observation> </ component> <component> <observation moodCode="EVN" classCode="OBS"> <templateId root="07.10.840.1.927264.10..22.4.2" /> <id nullFlavor="NA" /> <code codeSystem="local" code="RBC" displayName="RBC " /> <statusCode code="completed" /> <effectiveTime value= "" /> <value unit="10" xsi:type="PQ" value="3.65" /> <interpretationCode codeSystem="local" code="L" /> <referenceRange > <observationRange> <text>4.70-6.10</text> < /observationRange> </referenceRange> </observation> </ component> <component> <observation moodCode="EVN" classCode="OBS"> <templateId root="840.1.681635.10.20.22.4.2" /> <id nullFlavor="NA" /> <code codeSystem="local" code="MCV" displayName="MCV " /> <statusCode code="completed" /> <effectiveTime value= "" /> <value unit="fl" xsi:type="PQ" value="103.8" /> <interpretationCode codeSystem="local" code="H" /> <referenceRange > <observationRange> <text>80.0-100.0</text> </observationRange> </referenceRange> </observation> </ component> <component> <observation moodCode="EVN" classCode="OBS"> <templateId root="2.16.840.1.530874.10..22.4.2" /> <id nullFlavor="NA" /> <code codeSystem="local" code="MCH" displayName="MCH " /> <statusCode code="completed" /> <effectiveTime value= "" /> <value unit="pg" xsi:type="PQ" value="37.3" /> <interpretationCode codeSystem="local" code="H" /> <referenceRange > <observationRange> <text>26.0-34.0</text> < /observationRange> </referenceRange> </observation> </ component> <component> <observation moodCode="EVN" classCode="OBS"> <templateId root="07.10.840.1.757239.10..4.2" /> <id nullFlavor="NA" /> <code codeSystem="local" code="MCHC" displayName= "MCHC" /> <statusCode code="completed" /> <effectiveTime value ="" /> <value unit="g/dl" xsi:type="PQ" value="35.9" /> <referenceRange> <observationRange> <text>29.0- 37.0</text> </observationRange> </referenceRange> </ observation> </component> <component> <observation moodCode= "EVN" classCode="OBS"> <templateId root="216.840.1.978034.10.20.22.4.2 " /> <id nullFlavor="NA" /> <code codeSystem="local" code="RDW " displayName="RDW" /> <statusCode code="completed" /> < effectiveTime value="" /> <value unit="%" xsi:type="PQ " value="12.0" /> <referenceRange> <observationRange> <text>11.5-14.5</text> </observationRange> </ referenceRange> </observation> </component> <component> <observation moodCode="EVN" classCode="OBS"> <templateId root= "2.16.840.1.250509.10.20.22.4.2" /> <id nullFlavor="NA" /> < code codeSystem="local" code="MPV" displayName="MPV" /> <statusCode code="completed" /> <effectiveTime value="" /> < value unit="fl" xsi:type="PQ" value="8.10" /> <referenceRange> <observationRange> <text /> </observationRange> </referenceRange> </observation> </component> <component > <observation moodCode="EVN" classCode="OBS"> <templateId root= "2.16.840.1.482324.10.20.22.4.2" /> <id nullFlavor="NA" /> < code codeSystem="local" code="GRAN%" displayName="GRAN%" /> < statusCode code="completed" /> <effectiveTime value="" /> <value unit="%" xsi:type="PQ" value="57.9" /> < referenceRange> <observationRange> <text>37.0-80.0</text > </observationRange> </referenceRange> </observation > </component> <component> <observation moodCode="EVN" classCode="OBS"> <templateId root="2.16.840.1.702134.10.20.22.4.2" /> <id nullFlavor="NA" /> <code codeSystem="local" code="LYMPH&# 37;" displayName="LYMPH%" /> <statusCode code="completed" /> <effectiveTime value="" /> <value unit="%" xsi:type ="PQ" value="18.50" /> <referenceRange> <observationRange> <text>10.00-50.00</text> </observationRange> </ referenceRange> </observation> </component> <component> <observation moodCode="EVN" classCode="OBS"> <templateId root= "216.840.1.008062.10..4.2" /> <id nullFlavor="NA" /> < code codeSystem="local" code="MONO%" displayName="MONO%" /> < statusCode code="completed" /> <effectiveTime value="" /> <value unit="%" xsi:type="PQ" value="19.70" /> < interpretationCode codeSystem="local" code="H" /> <referenceRange> <observationRange> <text>0.00-12.00</text> </ observationRange> </referenceRange> </observation> </ component> <component> <observation moodCode="EVN" classCode="OBS"> <templateId root="216.840.1.528038.10.20.22.4.2" /> <id nullFlavor="NA" /> <code codeSystem="local" code="EOS%" displayName ="EOS%" /> <statusCode code="completed" /> <effectiveTime value="" /> <value unit="%" xsi:type="PQ" value="2.90" /> <referenceRange> <observationRange> <text> 0.00-7.00</text> </observationRange> </referenceRange> </observation> </component> <component> <observation moodCode="EVN" classCode="OBS"> <templateId root= "216.840.1.358311.10.2022.4.2" /> <id nullFlavor="NA" /> < code codeSystem="local" code="BASO%" displayName="BASO%" /> < statusCode code="completed" /> <effectiveTime value="647088122360" /> <value unit="%" xsi:type="PQ" value="1.00" /> < referenceRange> <observationRange> <text>0.00-2.50</text > </observationRange> </referenceRange> </observation > </component> <component> <observation moodCode="EVN" classCode="OBS"> <templateId root="07.10.840.1.567174.10.4.2" /> <id nullFlavor="NA" /> <code codeSystem="local" code="GRAN#" displayName="GRAN#" /> <statusCode code="completed" /> < effectiveTime value="199723224146" /> <value unit="10" xsi:type="PQ" value="2.97" /> <referenceRange> <observationRange> <text>2.00-6.90</text> </observationRange> </ referenceRange> </observation> </component> <component> <observation moodCode="EVN" classCode="OBS"> <templateId root= "07.10.840.1.779789.10.20.22.4.2" /> <id nullFlavor="NA" /> < code codeSystem="local" code="LYMPH#" displayName="LYMPH#" /> < statusCode code="completed" /> <effectiveTime value="" /> <value unit="10" xsi:type="PQ" value="0.95" /> <referenceRange > <observationRange> <text>0.60-3.40</text> < /observationRange> </referenceRange> </observation> </ component> <component> <observation moodCode="EVN" classCode="OBS"> <templateId root="16.840.1.674112.10..22.4.2" /> <id nullFlavor="NA" /> <code codeSystem="local" code="MONO#" displayName= "MONO#" /> <statusCode code="completed" /> <effectiveTime value="" /> <value unit="10" xsi:type="PQ" value="1.01" /> <interpretationCode codeSystem="local" code="H" /> < referenceRange> <observationRange> <text>0.00-0.90</text > </observationRange> </referenceRange> </observation > </component> <component> <observation moodCode="EVN" classCode="OBS"> <templateId root="16.840.1.466443.10..22.4.2" /> <id nullFlavor="NA" /> <code codeSystem="local" code="EOS#" displayName="EOS#" /> <statusCode code="completed" /> < effectiveTime value="" /> <value unit="10" xsi:type="PQ" value="0.15" /> <referenceRange> <observationRange> <text>0.00-0.50</text> </observationRange> </ referenceRange> </observation> </component> <component> <observation moodCode="EVN" classCode="OBS"> <templateId root= "16.840.1.882729.10..22.4.2" /> <id nullFlavor="NA" /> < code codeSystem="local" code="BASO#" displayName="BASO#" /> < statusCode code="completed" /> <effectiveTime value="" /> <value unit="10" xsi:type="PQ" value="0.05" /> <referenceRange > <observationRange> <text>0.00-0.20</text> < /observationRange> </referenceRange> </observation> </ component> <component> <observation moodCode="EVN" classCode="OBS"> <templateId root="07.10.840.1.894915.10..4.2" /> <id nullFlavor="NA" /> <code codeSystem="local" code="MANDIFF" displayName= "MAN DIFF" /> <statusCode code="completed" /> <effectiveTime value="" /> <value unit="" xsi:type="PQ" value="N" /> <referenceRange> <observationRange> <text> -</text> </observationRange> </referenceRange> </observation> </component> <component> <observation moodCode="EVN" classCode="OBS"> <templateId root= "07.10.840.1.369727.10..22.4.2" /> <id nullFlavor="NA" /> < code codeSystem="local" code="SEGS" displayName="SEGS" /> <statusCode code="completed" /> <effectiveTime value="" /> < value unit="%" xsi:type="PQ" value="64" /> <interpretationCode codeSystem="local" code="H" /> <referenceRange> < observationRange> <text>40-60</text> </observationRange > </referenceRange> </observation> </component> < component> <observation moodCode="EVN" classCode="OBS"> < templateId root="07.10.840.1.246913.10.20..4.2" /> <id nullFlavor="NA " /> <code codeSystem="local" code="BANDS" displayName="BANDS" /> <statusCode code="completed" /> <effectiveTime value=" " /> <value unit="%" xsi:type="PQ" value="0" /> < referenceRange> <observationRange> <text>0-5</text> </observationRange> </referenceRange> </observation> </component> <component> <observation moodCode="EVN" classCode= "OBS"> <templateId root="07.10.840.1.091360.10.4.2" /> < id nullFlavor="NA" /> <code codeSystem="local" code="LYMPHS" displayName="LYMPHS" /> <statusCode code="completed" /> < effectiveTime value="" /> <value unit="%" xsi:type="PQ " value="21" /> <referenceRange> <observationRange> <text>20-40</text> </observationRange> </ referenceRange> </observation> </component> <component> <observation moodCode="EVN" classCode="OBS"> <templateId root= "07.10.840.1.716489.10.20.22.4.2" /> <id nullFlavor="NA" /> < code codeSystem="local" code="VARLYMP" displayName="JUAN A LYMP" /> < statusCode code="completed" /> <effectiveTime value="810138117742" /> <value unit="%" xsi:type="PQ" value="1" /> < interpretationCode codeSystem="local" code="H" /> <referenceRange> <observationRange> <text>0-0</text> </ observationRange> </referenceRange> </observation> </ component> <component> <observation moodCode="EVN" classCode="OBS"> <templateId root="07.10.840.1.415143.10.20.22.4.2" /> <id nullFlavor="NA" /> <code codeSystem="local" code="MONOS" displayName= "MONOS" /> <statusCode code="completed" /> <effectiveTime value="167209398501" /> <value unit="%" xsi:type="PQ" value="13" / > <interpretationCode codeSystem="local" code="H" /> < referenceRange> <observationRange> <text>4-8</text> </observationRange> </referenceRange> </observation> </component> <component> <observation moodCode="EVN" classCode= "OBS"> <templateId root="07.10.840.1.765747.10.20.22.4.2" /> < id nullFlavor="NA" /> <code codeSystem="local" code="EOS" displayName= "EOS" /> <statusCode code="completed" /> <effectiveTime value= "014742970594" /> <value unit="%" xsi:type="PQ" value="1" /> <referenceRange> <observationRange> <text>0-5</text > </observationRange> </referenceRange> </observation > </component> <component> <observation moodCode="EVN" classCode="OBS"> <templateId root="07.10.830.1.599118.22.4.2" /> <id nullFlavor="NA" /> <code codeSystem="local" code="BASOS" displayName="BASOS" /> <statusCode code="completed" /> < effectiveTime value="" /> <value unit="%" xsi:type="PQ " value="0" /> <referenceRange> <observationRange> <text>0-2</text> </observationRange> </referenceRange> </observation> </component> <component> <observation moodCode="EVN" classCode="OBS"> <templateId root= "840.1.085035.03.13.22.4.2" /> <id nullFlavor="NA" /> < code codeSystem="local" code="MACROCYT" displayName="MACROCYT" /> < statusCode code="completed" /> <effectiveTime value="224441051329" /> <value unit="" xsi:type="PQ" value="1+" /> <referenceRange> <observationRange> <text /> </observationRange > </referenceRange> </observation> </component> </ organizer> </entry> <entry> <organizer moodCode="EVN" classCode="BATTERY"> <templateId root="840.1.897854.22.4.1" /> <id nullFlavor= "NA" /> <code codeSystem="local" code="CSECHOAD" displayName= "ECHOCARDIOGRAM COMPLETE" /> <statusCode code="completed" /> < component> <observation moodCode="EVN" classCode="OBS"> < templateId root="07.10.840.1.228480.1022.4.2" /> <id nullFlavor="NA " /> <code codeSystem="local" code="CSECHOAD" displayName="CSECHOAD" / > <statusCode code="completed" /> <effectiveTime value= "128243067476" /> <value unit="" xsi:type="PQ" value="see batch scanned documents" /> <referenceRange> <observationRange> <text /> </observationRange> </referenceRange> </observation> </component> </organizer> </entry> <entry> < organizer moodCode="EVN" classCode="BATTERY"> <templateId root= "216.840.1.898947.10..22.4.1" /> <id nullFlavor="NA" /> <code codeSystem="local" code="BUN" displayName="BUN" /> <statusCode code= "completed" /> <component> <observation moodCode="EVN" classCode= "OBS"> <templateId root="216.840.1.262989.10..22.4.2" /> < id nullFlavor="NA" /> <code codeSystem="local" code="BUN" displayName= "BUN" /> <statusCode code="completed" /> <effectiveTime value= "483360242420" /> <value unit="mg/dl" xsi:type="PQ" value="13" /> <referenceRange> <observationRange> <text>7-18</ text> </observationRange> </referenceRange> </ observation> </component> </organizer> </entry> <entry> <organizer moodCode="EVN" classCode="BATTERY"> <templateId root= "216.840.1.352194.10..22.4.1" /> <id nullFlavor="NA" /> <code codeSystem="local" code="CREAT" displayName="CREATININE" /> <statusCode code="completed" /> <component> <observation moodCode="EVN" classCode="OBS"> <templateId root="16.840.1.776729.10..22.4.2" /> <id nullFlavor="NA" /> <code codeSystem="local" code="CREAT" displayName="CREATININE" /> <statusCode code="completed" /> < effectiveTime value="011229754421" /> <value unit="mg/dl" xsi:type="PQ " value="1.0" /> <referenceRange> <observationRange> <text>0.6-1.3</text> </observationRange> </ referenceRange> </observation> </component> </organizer> </entry > <entry> <organizer moodCode="EVN" classCode="BATTERY"> <templateId root="216.840.1.521398.10..22.4.1" /> <id nullFlavor="NA" /> <code codeSystem="local" code="TROP I" displayName="TROPONIN I" /> <statusCode code="completed" /> <component> <observation moodCode="EVN" classCode="OBS"> <templateId root="216.840.1.772878.10.20.22.4.2" /> <id nullFlavor="NA" /> <code codeSystem="local" code="TROPI" displayName="TROP I" /> <statusCode code="completed" /> < effectiveTime value="298546799187" /> <value unit="ng/ml" xsi:type="PQ " value="<0.03" /> <referenceRange> <observationRange> <text>0.0-0.1</text> </observationRange> </ referenceRange> </observation> </component> </organizer> </entry > <entry> <organizer moodCode="EVN" classCode="BATTERY"> <templateId root="16.840.1.026233.10..22.4.1" /> <id nullFlavor="NA" /> <code codeSystem="local" code="D-DIM QT" displayName="D-DIMER QUANTITATIVE" /> < statusCode code="completed" /> <component> <observation moodCode= "EVN" classCode="OBS"> <templateId root="16.840.1.289381.03.13.22.4.2 " /> <id nullFlavor="NA" /> <code codeSystem="local" code="CH " displayName="Chemistry" /> <statusCode code="completed" /> < effectiveTime value="325711688508" /> <value xsi:type="ST" value="<pre> <b>D-DIMER QUANTITATIVE</b> 3034</pre>" /> <referenceRange> <observationRange> <text /> </observationRange> </referenceRange> </observation> </component> </organizer> </ entry> <entry> <organizer moodCode="EVN" classCode="BATTERY"> < templateId root="07.10.840.1.589729.03.13.22.4.1" /> <id nullFlavor="NA" /> <code codeSystem="local" code="CMP" displayName="COMPREHENSIVE METABOL" / > <statusCode code="completed" /> <component> <observation moodCode="EVN" classCode="OBS"> <templateId root= "16.840.1.346021.10..22.4.2" /> <id nullFlavor="NA" /> < code codeSystem="local" code="CREAT" displayName="CREATININE" /> < statusCode code="completed" /> <effectiveTime value="223854631530" /> <value unit="mg/dl" xsi:type="PQ" value="1.1" /> < referenceRange> <observationRange> <text>0.6-1.3</text> </observationRange> </referenceRange> </observation > </component> <component> <observation moodCode="EVN" classCode="OBS"> <templateId root="07.10.840.1.508623.10.20.22.4.2" /> <id nullFlavor="NA" /> <code codeSystem="local" code="NA" displayName="SODIUM" /> <statusCode code="completed" /> < effectiveTime value="007826582366" /> <value unit="mmol/L" xsi:type="PQ " value="130" /> <interpretationCode codeSystem="local" code="L" /> <referenceRange> <observationRange> <text>136-145 </text> </observationRange> </referenceRange> </ observation> </component> <component> <observation moodCode= "EVN" classCode="OBS"> <templateId root="840.1.595341.10...4.2 " /> <id nullFlavor="NA" /> <code codeSystem="local" code= "TBIL" displayName="TOTAL BILIRUBIN" /> <statusCode code="completed" / > <effectiveTime value="563604214097" /> <value unit="mg/dl" xsi:type="PQ" value="0.3" /> <referenceRange> < observationRange> <text>0.0-1.0</text> </ observationRange> </referenceRange> </observation> </ component> <component> <observation moodCode="EVN" classCode="OBS"> <templateId root="07.10.840.1.491585.10..22.4.2" /> <id nullFlavor="NA" /> <code codeSystem="local" code="TP" displayName= "TOTAL PROTEIN" /> <statusCode code="completed" /> < effectiveTime value="888669322595" /> <value unit="g/dl" xsi:type="PQ" value="6.5" /> <referenceRange> <observationRange> <text>6.4-8.2</text> </observationRange> </ referenceRange> </observation> </component> <component> <observation moodCode="EVN" classCode="OBS"> <templateId root= "216.840.1.916986.03.13.22.4.2" /> <id nullFlavor="NA" /> < code codeSystem="local" code="ALB" displayName="ALBUMIN" /> < statusCode code="completed" /> <effectiveTime value="862815062082" /> <value unit="g/dl" xsi:type="PQ" value="3.6" /> < referenceRange> <observationRange> <text>3.4-5.0</text> </observationRange> </referenceRange> </observation > </component> <component> <observation moodCode="EVN" classCode="OBS"> <templateId root="216.840.1.932503.03.13.22.4.2" /> <id nullFlavor="NA" /> <code codeSystem="local" code="ALKP" displayName="ALK. PHOSPHATASE" /> <statusCode code="completed" /> <effectiveTime value="890528644110" /> <value unit="U/L" xsi:type= "PQ" value="48" /> <interpretationCode codeSystem="local" code="L" /> <referenceRange> <observationRange> <text>50- 136</text> </observationRange> </referenceRange> </ observation> </component> <component> <observation moodCode= "EVN" classCode="OBS"> <templateId root="216.840.1.146864...22.4.2 " /> <id nullFlavor="NA" /> <code codeSystem="local" code="BUN " displayName="BUN" /> <statusCode code="completed" /> < effectiveTime value="" /> <value unit="mg/dl" xsi:type="PQ " value="16" /> <referenceRange> <observationRange> <text>7-18</text> </observationRange> </referenceRange > </observation> </component> <component> <observation moodCode="EVN" classCode="OBS"> <templateId root= "16.840.1.163472.03.13.22.4.2" /> <id nullFlavor="NA" /> < code codeSystem="local" code="CA" displayName="CALCIUM" /> <statusCode code="completed" /> <effectiveTime value="" /> < value unit="mg/dl" xsi:type="PQ" value="8.3" /> <interpretationCode codeSystem="local" code="L" /> <referenceRange> < observationRange> <text>8.5-10.1</text> </ observationRange> </referenceRange> </observation> </ component> <component> <observation moodCode="EVN" classCode="OBS"> <templateId root="16.840.1.932407.22.4.2" /> <id nullFlavor="NA" /> <code codeSystem="local" code="CL" displayName= "CHLORIDE" /> <statusCode code="completed" /> <effectiveTime value="920075398869" /> <value unit="mmol/L" xsi:type="PQ" value="94" / > <interpretationCode codeSystem="local" code="L" /> < referenceRange> <observationRange> <text>98-107</text> </observationRange> </referenceRange> </observation> </component> <component> <observation moodCode="EVN" classCode ="OBS"> <templateId root="216.840.1.693216.10...4.2" /> < id nullFlavor="NA" /> <code codeSystem="local" code="CO2" displayName= "CO2" /> <statusCode code="completed" /> <effectiveTime value= "" /> <value unit="mmol/L" xsi:type="PQ" value="25.7" /> <referenceRange> <observationRange> <text>21.0- 32.0</text> </observationRange> </referenceRange> </ observation> </component> <component> <observation moodCode= "EVN" classCode="OBS"> <templateId root="07.10.840.1.844752.03.13.22.4.2 " /> <id nullFlavor="NA" /> <code codeSystem="local" code="GLU " displayName="GLUCOSE" /> <statusCode code="completed" /> < effectiveTime value="" /> <value unit="mg/dl" xsi:type="PQ " value="92" /> <referenceRange> <observationRange> <text>70-110</text> </observationRange> </ referenceRange> </observation> </component> <component> <observation moodCode="EVN" classCode="OBS"> <templateId root= "07.10.840.1.149583....4.2" /> <id nullFlavor="NA" /> < code codeSystem="local" code="K" displayName="POTASSIUM" /> < statusCode code="completed" /> <effectiveTime value="" /> <value unit="mmol/L" xsi:type="PQ" value="4.6" /> < referenceRange> <observationRange> <text>3.5-5.1</text> </observationRange> </referenceRange> </observation > </component> <component> <observation moodCode="EVN" classCode="OBS"> <templateId root="16.840.1.241952.10...4.2" /> <id nullFlavor="NA" /> <code codeSystem="local" code="AST" displayName="AST" /> <statusCode code="completed" /> < effectiveTime value="665752459123" /> <value unit="U/L" xsi:type="PQ" value="34" /> <referenceRange> <observationRange> <text>15-37</text> </observationRange> </referenceRange > </observation> </component> <component> <observation moodCode="EVN" classCode="OBS"> <templateId root= "840.1.122971.10..4.2" /> <id nullFlavor="NA" /> < code codeSystem="local" code="ALT" displayName="ALT" /> <statusCode code="completed" /> <effectiveTime value="543586295782" /> < value unit="U/L" xsi:type="PQ" value="32" /> <referenceRange> <observationRange> <text>12-78</text> </ observationRange> </referenceRange> </observation> </ component> <component> <observation moodCode="EVN" classCode="OBS"> <templateId root="07.10.840.1.951512.10...4.2" /> <id nullFlavor="NA" /> <code codeSystem="local" code="AGAP" displayName= "AGAP" /> <statusCode code="completed" /> <effectiveTime value ="544198093324" /> <value unit="" xsi:type="PQ" value="14.9" /> <referenceRange> <observationRange> <text>6.0-16.0</ text> </observationRange> </referenceRange> </ observation> </component> <component> <observation moodCode= "EVN" classCode="OBS"> <templateId root="840.1.937847.03.13.22.4.2 " /> <id nullFlavor="NA" /> <code codeSystem="local" code="BN/ CR" displayName="BN/CR" /> <statusCode code="completed" /> < effectiveTime value="" /> <value unit="" xsi:type="PQ" value="14.4" /> <referenceRange> <observationRange> <text>6.0-20.0</text> </observationRange> </ referenceRange> </observation> </component> </organizer> </entry > <entry> <organizer moodCode="EVN" classCode="BATTERY"> <templateId root="840.1.978801...4.1" /> <id nullFlavor="NA" /> <code codeSystem="local" code="TSH" displayName="HTSH" /> <statusCode code= "completed" /> <component> <observation moodCode="EVN" classCode= "OBS"> <templateId root="840.1.894448.03.13.22.4.2" /> < id nullFlavor="NA" /> <code codeSystem="local" code="TSH" displayName= "HTSH" /> <statusCode code="completed" /> <effectiveTime value ="525595047427" /> <value unit="uiU/ml" xsi:type="PQ" value="1.29" /> <referenceRange> <observationRange> <text>0.34- 4.82</text> </observationRange> </referenceRange> </ observation> </component> </organizer> </entry> <entry> <organizer moodCode="EVN" classCode="BATTERY"> <templateId root= "07.10.840.1.290648.10..4.1" /> <id nullFlavor="NA" /> <code codeSystem="local" code="CKMB" displayName="CKMB" /> <statusCode code= "completed" /> <component> <observation moodCode="EVN" classCode= "OBS"> <templateId root="07.10.840.1.085710...4.2" /> < id nullFlavor="NA" /> <code codeSystem="local" code="CKMB" displayName= "CKMB" /> <statusCode code="completed" /> <effectiveTime value ="748008298829" /> <value unit="ng/ml" xsi:type="PQ" value="4.0" /> <referenceRange> <observationRange> <text>0-6.5</ text> </observationRange> </referenceRange> </ observation> </component> </organizer> </entry> <entry> <organizer moodCode="EVN" classCode="BATTERY"> <templateId root= "07.10.840.1.422042.10..4.1" /> <id nullFlavor="NA" /> <code codeSystem="local" code="BNP" displayName="NATRIURETIC PEPTIDE" /> < statusCode code="completed" /> <component> <observation moodCode= "EVN" classCode="OBS"> <templateId root="07.10.840.1.134923.03.13.22.4.2 " /> <id nullFlavor="NA" /> <code codeSystem="local" code="CH " displayName="Chemistry" /> <statusCode code="completed" /> < effectiveTime value="911276452951" /> <value xsi:type="ST" value="<pre> <b>NATRIURETIC PEPTIDE</b> 48</pre>" /> <referenceRange> < observationRange> <text /> </observationRange> </referenceRange> </observation> </component> </organizer> </ entry> <entry> <organizer moodCode="EVN" classCode="BATTERY"> < templateId root="07.10.840.1.046700.03.13.224.1" /> <id nullFlavor="NA" /> <code codeSystem="local" code="CBC AUTO" displayName="CBC/ AUTO DIFF" /> <statusCode code="completed" /> <component> <observation moodCode="EVN" classCode="OBS"> <templateId root= "07.10.840.1.122772.03.13.22.4.2" /> <id nullFlavor="NA" /> < code codeSystem="local" code="WBC" displayName="WHITE BLOOD COUNT" /> < statusCode code="completed" /> <effectiveTime value="645736827732" /> <value unit="10" xsi:type="PQ" value="5.27" /> <referenceRange > <observationRange> <text>4.60-10.20</text> </observationRange> </referenceRange> </observation> </ component> <component> <observation moodCode="EVN" classCode="OBS"> <templateId root="07.10.840.1.719040.03.13.22.4.2" /> <id nullFlavor="NA" /> <code codeSystem="local" code="HCT" displayName= "HEMATOCRIT" /> <statusCode code="completed" /> < effectiveTime value="" /> <value unit="%" xsi:type="PQ " value="35.2" /> <interpretationCode codeSystem="local" code="L" /> <referenceRange> <observationRange> <text>42.0- 52.0</text> </observationRange> </referenceRange> </ observation> </component> <component> <observation moodCode= "EVN" classCode="OBS"> <templateId root="2.16.840.1.740962.10.20.22.4.2 " /> <id nullFlavor="NA" /> <code codeSystem="local" code="HGB " displayName="HEMOGLOBIN" /> <statusCode code="completed" /> <effectiveTime value="" /> <value unit="g/dl" xsi:type="PQ " value="12.8" /> <interpretationCode codeSystem="local" code="L" /> <referenceRange> <observationRange> <text>14.0- 18.0</text> </observationRange> </referenceRange> </ observation> </component> <component> <observation moodCode= "EVN" classCode="OBS"> <templateId root="2.16.840.1.754051.10.20.22.4.2 " /> <id nullFlavor="NA" /> <code codeSystem="local" code= "PLT.COUT" displayName="PLATELET COUNT" /> <statusCode code="completed " /> <effectiveTime value="" /> <value unit="10" xsi:type="PQ" value="215" /> <referenceRange> < observationRange> <text>142-424</text> </ observationRange> </referenceRange> </observation> </ component> <component> <observation moodCode="EVN" classCode="OBS"> <templateId root="07.10.840.1.856132.10..22.4.2" /> <id nullFlavor="NA" /> <code codeSystem="local" code="RBC" displayName="RBC " /> <statusCode code="completed" /> <effectiveTime value= "" /> <value unit="10" xsi:type="PQ" value="3.38" /> <interpretationCode codeSystem="local" code="L" /> <referenceRange > <observationRange> <text>4.70-6.10</text> < /observationRange> </referenceRange> </observation> </ component> <component> <observation moodCode="EVN" classCode="OBS"> <templateId root="07.10.840.1.351698.03.13.22.4.2" /> <id nullFlavor="NA" /> <code codeSystem="local" code="MCV" displayName="MCV " /> <statusCode code="completed" /> <effectiveTime value= "" /> <value unit="fl" xsi:type="PQ" value="104.1" /> <interpretationCode codeSystem="local" code="H" /> <referenceRange > <observationRange> <text>80.0-100.0</text> </observationRange> </referenceRange> </observation> </ component> <component> <observation moodCode="EVN" classCode="OBS"> <templateId root="07.10.840.1.954134.03.13.22.4.2" /> <id nullFlavor="NA" /> <code codeSystem="local" code="MCH" displayName="MCH " /> <statusCode code="completed" /> <effectiveTime value= "" /> <value unit="pg" xsi:type="PQ" value="37.9" /> <interpretationCode codeSystem="local" code="H" /> <referenceRange > <observationRange> <text>26.0-34.0</text> < /observationRange> </referenceRange> </observation> </ component> <component> <observation moodCode="EVN" classCode="OBS"> <templateId root="216.840.1.351752.10.22.4.2" /> <id nullFlavor="NA" /> <code codeSystem="local" code="MCHC" displayName= "MCHC" /> <statusCode code="completed" /> <effectiveTime value ="" /> <value unit="g/dl" xsi:type="PQ" value="36.4" /> <referenceRange> <observationRange> <text>29.0- 37.0</text> </observationRange> </referenceRange> </ observation> </component> <component> <observation moodCode= "EVN" classCode="OBS"> <templateId root="07.10.840.1.196461.03.13.22.4.2 " /> <id nullFlavor="NA" /> <code codeSystem="local" code="RDW " displayName="RDW" /> <statusCode code="completed" /> < effectiveTime value="" /> <value unit="%" xsi:type="PQ " value="12.1" /> <referenceRange> <observationRange> <text>11.5-14.5</text> </observationRange> </ referenceRange> </observation> </component> <component> <observation moodCode="EVN" classCode="OBS"> <templateId root= "216.840.1.585281.10.2022.4.2" /> <id nullFlavor="NA" /> < code codeSystem="local" code="MPV" displayName="MPV" /> <statusCode code="completed" /> <effectiveTime value="" /> < value unit="fl" xsi:type="PQ" value="8.20" /> <referenceRange> <observationRange> <text /> </observationRange> </referenceRange> </observation> </component> <component > <observation moodCode="EVN" classCode="OBS"> <templateId root= "2.16.840.1.312753.10.20.22.4.2" /> <id nullFlavor="NA" /> < code codeSystem="local" code="GRAN%" displayName="GRAN%" /> < statusCode code="completed" /> <effectiveTime value="" /> <value unit="%" xsi:type="PQ" value="52.4" /> < referenceRange> <observationRange> <text>37.0-80.0</text > </observationRange> </referenceRange> </observation > </component> <component> <observation moodCode="EVN" classCode="OBS"> <templateId root="2.16.840.1.288379.10.20.22.4.2" /> <id nullFlavor="NA" /> <code codeSystem="local" code="LYMPH&# 37;" displayName="LYMPH%" /> <statusCode code="completed" /> <effectiveTime value="" /> <value unit="%" xsi:type ="PQ" value="23.00" /> <referenceRange> <observationRange> <text>10.00-50.00</text> </observationRange> </ referenceRange> </observation> </component> <component> <observation moodCode="EVN" classCode="OBS"> <templateId root= "2.16.840.1.233932.10..22.4.2" /> <id nullFlavor="NA" /> < code codeSystem="local" code="MONO%" displayName="MONO%" /> < statusCode code="completed" /> <effectiveTime value="" /> <value unit="%" xsi:type="PQ" value="20.10" /> < interpretationCode codeSystem="local" code="H" /> <referenceRange> <observationRange> <text>0.00-12.00</text> </ observationRange> </referenceRange> </observation> </ component> <component> <observation moodCode="EVN" classCode="OBS"> <templateId root="2.16.840.1.055324.03.13.22.4.2" /> <id nullFlavor="NA" /> <code codeSystem="local" code="EOS%" displayName ="EOS%" /> <statusCode code="completed" /> <effectiveTime value="" /> <value unit="%" xsi:type="PQ" value="3.60" /> <referenceRange> <observationRange> <text> 0.00-7.00</text> </observationRange> </referenceRange> </observation> </component> <component> <observation moodCode="EVN" classCode="OBS"> <templateId root= "2.16.840.1.620655.10.22.4.2" /> <id nullFlavor="NA" /> < code codeSystem="local" code="BASO%" displayName="BASO%" /> < statusCode code="completed" /> <effectiveTime value="" /> <value unit="%" xsi:type="PQ" value="0.90" /> < referenceRange> <observationRange> <text>0.00-2.50</text > </observationRange> </referenceRange> </observation > </component> <component> <observation moodCode="EVN" classCode="OBS"> <templateId root="07.10.840.1.191852.102022.4.2" /> <id nullFlavor="NA" /> <code codeSystem="local" code="GRAN#" displayName="GRAN#" /> <statusCode code="completed" /> < effectiveTime value="" /> <value unit="10" xsi:type="PQ" value="2.76" /> <referenceRange> <observationRange> <text>2.00-6.90</text> </observationRange> </ referenceRange> </observation> </component> <component> <observation moodCode="EVN" classCode="OBS"> <templateId root= "840.1.431563.1022.4.2" /> <id nullFlavor="NA" /> < code codeSystem="local" code="LYMPH#" displayName="LYMPH#" /> < statusCode code="completed" /> <effectiveTime value="" /> <value unit="10" xsi:type="PQ" value="1.21" /> <referenceRange > <observationRange> <text>0.60-3.40</text> < /observationRange> </referenceRange> </observation> </ component> <component> <observation moodCode="EVN" classCode="OBS"> <templateId root="07.10.840.1.964631.10.2022.4.2" /> <id nullFlavor="NA" /> <code codeSystem="local" code="MONO#" displayName= "MONO#" /> <statusCode code="completed" /> <effectiveTime value="" /> <value unit="10" xsi:type="PQ" value="1.06" /> <interpretationCode codeSystem="local" code="H" /> < referenceRange> <observationRange> <text>0.00-0.90</text > </observationRange> </referenceRange> </observation > </component> <component> <observation moodCode="EVN" classCode="OBS"> <templateId root="216.840.1.140386.03.13.22.4.2" /> <id nullFlavor="NA" /> <code codeSystem="local" code="EOS#" displayName="EOS#" /> <statusCode code="completed" /> < effectiveTime value="" /> <value unit="10" xsi:type="PQ" value="0.19" /> <referenceRange> <observationRange> <text>0.00-0.50</text> </observationRange> </ referenceRange> </observation> </component> <component> <observation moodCode="EVN" classCode="OBS"> <templateId root= "216.840.1.536391.03.13.22.4.2" /> <id nullFlavor="NA" /> < code codeSystem="local" code="BASO#" displayName="BASO#" /> < statusCode code="completed" /> <effectiveTime value="" /> <value unit="10" xsi:type="PQ" value="0.05" /> <referenceRange > <observationRange> <text>0.00-0.20</text> < /observationRange> </referenceRange> </observation> </ component> <component> <observation moodCode="EVN" classCode="OBS"> <templateId root="16.840.1.643196.10..4.2" /> <id nullFlavor="NA" /> <code codeSystem="local" code="MANDIFF" displayName= "MAN DIFF" /> <statusCode code="completed" /> <effectiveTime value="" /> <value unit="" xsi:type="PQ" value="N" /> <referenceRange> <observationRange> <text> -</text> </observationRange> </referenceRange> </observation> </component> <component> <observation moodCode="EVN" classCode="OBS"> <templateId root= "16.840.1.954896.03.13.22.4.2" /> <id nullFlavor="NA" /> < code codeSystem="local" code="SEGS" displayName="SEGS" /> <statusCode code="completed" /> <effectiveTime value="" /> < value unit="%" xsi:type="PQ" value="56" /> <referenceRange> <observationRange> <text>40-60</text> </ observationRange> </referenceRange> </observation> </ component> <component> <observation moodCode="EVN" classCode="OBS"> <templateId root="16.840.1.505423.10..4.2" /> <id nullFlavor="NA" /> <code codeSystem="local" code="BANDS" displayName= "BANDS" /> <statusCode code="completed" /> <effectiveTime value="" /> <value unit="%" xsi:type="PQ" value="2" /> <referenceRange> <observationRange> <text>0-5< /text> </observationRange> </referenceRange> </ observation> </component> <component> <observation moodCode= "EVN" classCode="OBS"> <templateId root="216.840.1.035838.10..4.2 " /> <id nullFlavor="NA" /> <code codeSystem="local" code= "LYMPHS" displayName="LYMPHS" /> <statusCode code="completed" /> <effectiveTime value="" /> <value unit="%" xsi:type ="PQ" value="25" /> <referenceRange> <observationRange> <text>20-40</text> </observationRange> </ referenceRange> </observation> </component> <component> <observation moodCode="EVN" classCode="OBS"> <templateId root= "07.10.840.1.714186.03.13.22.4.2" /> <id nullFlavor="NA" /> < code codeSystem="local" code="VARLYMP" displayName="JUAN A LYMP" /> < statusCode code="completed" /> <effectiveTime value="" /> <value unit="%" xsi:type="PQ" value="0" /> <referenceRange > <observationRange> <text>0-0</text> </ observationRange> </referenceRange> </observation> </ component> <component> <observation moodCode="EVN" classCode="OBS"> <templateId root="07.10.840.1.280201.10.4.2" /> <id nullFlavor="NA" /> <code codeSystem="local" code="MONOS" displayName= "MONOS" /> <statusCode code="completed" /> <effectiveTime value="" /> <value unit="%" xsi:type="PQ" value="15" / > <interpretationCode codeSystem="local" code="H" /> < referenceRange> <observationRange> <text>4-8</text> </observationRange> </referenceRange> </observation> </component> <component> <observation moodCode="EVN" classCode= "OBS"> <templateId root="16.840.1.978230.1022.4.2" /> < id nullFlavor="NA" /> <code codeSystem="local" code="EOS" displayName= "EOS" /> <statusCode code="completed" /> <effectiveTime value= "" /> <value unit="%" xsi:type="PQ" value="2" /> <referenceRange> <observationRange> <text>0-5</text > </observationRange> </referenceRange> </observation > </component> <component> <observation moodCode="EVN" classCode="OBS"> <templateId root="07.10.840.1.493933.1022.4.2" /> <id nullFlavor="NA" /> <code codeSystem="local" code="BASOS" displayName="BASOS" /> <statusCode code="completed" /> < effectiveTime value="" /> <value unit="%" xsi:type="PQ " value="0" /> <referenceRange> <observationRange> <text>0-2</text> </observationRange> </referenceRange> </observation> </component> <component> <observation moodCode="EVN" classCode="OBS"> <templateId root= "07.10.840.1.138428.102022.4.2" /> <id nullFlavor="NA" /> < code codeSystem="local" code="POIKILO" displayName="POIKILO" /> < statusCode code="completed" /> <effectiveTime value="" /> <value unit="" xsi:type="PQ" value="SMALL" /> <referenceRange > <observationRange> <text /> </ observationRange> </referenceRange> </observation> </ component> <component> <observation moodCode="EVN" classCode="OBS"> <templateId root="840.1.130536.10.4.2" /> <id nullFlavor="NA" /> <code codeSystem="local" code="MACROCYT" displayName ="MACROCYT" /> <statusCode code="completed" /> <effectiveTime value="" /> <value unit="" xsi:type="PQ" value="1+" /> <referenceRange> <observationRange> <text /> </observationRange> </referenceRange> </observation> </component> </organizer> </entry> <entry> <organizer moodCode="EVN" classCode="BATTERY"> <templateId root="07.10.840.1.603964.03.13.22.4.1" /> <id nullFlavor="NA" /> <code codeSystem="local" code="CPK" displayName ="CPK TOTAL" /> <statusCode code="completed" /> <component> < observation moodCode="EVN" classCode="OBS"> <templateId root= "840.1.279907.03.13.22.4.2" /> <id nullFlavor="NA" /> < code codeSystem="local" code="CPK" displayName="CPK TOTAL" /> < statusCode code="completed" /> <effectiveTime value="" /> <value unit="U/L" xsi:type="PQ" value="77" /> <referenceRange > <observationRange> <text>21-232</text> </ observationRange> </referenceRange> </observation> </ component> </organizer> </entry> <entry> <organizer moodCode="EVN" classCode="BATTERY"> <templateId root="16.840.1.254616.10...4.1" /> <id nullFlavor="NA" /> <code codeSystem="local" code="CSECHOAD" displayName="ECHOCARDIOGRAM COMPLETE" /> <statusCode code="completed" /> <component> <observation moodCode="EVN" classCode="OBS"> < templateId root="07.10.840.1.015008.10...4.2" /> <id nullFlavor="NA " /> <code codeSystem="local" code="CSECHOAD" displayName="CSECHOAD" / > <statusCode code="completed" /> <effectiveTime value= "087586514604" /> <value unit="" xsi:type="PQ" value="See scanned documents." /> <referenceRange> <observationRange> <text /> </observationRange> </referenceRange> < /observation> </component> </organizer> </entry> <entry> < organizer moodCode="EVN" classCode="BATTERY"> <templateId root= "07.10.840.1.851187.10...4.1" /> <id nullFlavor="NA" /> <code codeSystem="local" code="MICR ALB" displayName="MICROALBUMIN" /> < statusCode code="completed" /> <component> <observation moodCode= "EVN" classCode="OBS"> <templateId root="07.10.840.1.107224.10..22.4.2 " /> <id nullFlavor="NA" /> <code codeSystem="local" code= "MICRALB" displayName="MICR ALB" /> <statusCode code="completed" /> <effectiveTime value="297738954435" /> <value unit="mg/l" xsi: type="PQ" value="10" /> <referenceRange> <observationRange> <text>0-20</text> </observationRange> </ referenceRange> </observation> </component> <component> <observation moodCode="EVN" classCode="OBS"> <templateId root= "2.16.840.1.896049.10..22.4.2" /> <id nullFlavor="NA" /> < code codeSystem="local" code="UCREAT" displayName="UCREAT" /> < statusCode code="completed" /> <effectiveTime value="774084594437" /> <value unit="mg/dl" xsi:type="PQ" value="50" /> < referenceRange> <observationRange> <text>10-300</text> </observationRange> </referenceRange> </observation> </component> <component> <observation moodCode="EVN" classCode ="OBS"> <templateId root="2.16.840.1.138901.10..22.4.2" /> < id nullFlavor="NA" /> <code codeSystem="local" code="A:C" displayName= "A:C" /> <statusCode code="completed" /> <effectiveTime value= "472189241884" /> <value unit="mg/G" xsi:type="PQ" value="20" /> <referenceRange> <observationRange> <text>-<=30</ text> </observationRange> </referenceRange> </ observation> </component> </organizer> </entry> <entry> <organizer moodCode="EVN" classCode="BATTERY"> <templateId root= "840.1.207363.03.13.22.4.1" /> <id nullFlavor="NA" /> <code codeSystem="local" code="UA" displayName="URINALYSIS" /> <statusCode code= "completed" /> <component> <observation moodCode="EVN" classCode= "OBS"> <templateId root="840.1.528282.03.13.22.4.2" /> < id nullFlavor="NA" /> <code codeSystem="local" code="SG" displayName= "SPECIFIC GRAVITY" /> <statusCode code="completed" /> < effectiveTime value="" /> <value unit="" xsi:type="PQ" value="1.015" /> <referenceRange> <observationRange> <text /> </observationRange> </referenceRange> </observation> </component> <component> <observation moodCode ="EVN" classCode="OBS"> <templateId root= "840.1.687650.03.13.22.4.2" /> <id nullFlavor="NA" /> < code codeSystem="local" code="UCOLOR" displayName="COLOR" /> < statusCode code="completed" /> <effectiveTime value="" /> <value unit="" xsi:type="PQ" value="YELLOW" /> <referenceRange > <observationRange> <text>YELLOW</text> </ observationRange> </referenceRange> </observation> </ component> <component> <observation moodCode="EVN" classCode="OBS"> <templateId root="07.10.840.1.613081.03.13.22.4.2" /> <id nullFlavor="NA" /> <code codeSystem="local" code="UCLARITY" displayName ="CLARITY" /> <statusCode code="completed" /> <effectiveTime value="" /> <value unit="" xsi:type="PQ" value="CLEAR" /> <referenceRange> <observationRange> <text>CLEAR </text> </observationRange> </referenceRange> </ observation> </component> <component> <observation moodCode= "EVN" classCode="OBS"> <templateId root="07.10.840.1.413120.03.13.22.4.2 " /> <id nullFlavor="NA" /> <code codeSystem="local" code= "UGLU" displayName="GLUCOSE" /> <statusCode code="completed" /> <effectiveTime value="" /> <value unit="mg/dl" xsi:type= "PQ" value="NEGATIVE" /> <referenceRange> <observationRange > <text>NEGATIVE</text> </observationRange> </ referenceRange> </observation> </component> <component> <observation moodCode="EVN" classCode="OBS"> <templateId root= "07.10.840.1.622805.03.13.22.4.2" /> <id nullFlavor="NA" /> < code codeSystem="local" code="UBILI" displayName="BILI" /> <statusCode code="completed" /> <effectiveTime value="" /> < value unit="" xsi:type="PQ" value="NEGATIVE" /> <referenceRange> <observationRange> <text>NEGATIVE</text> </ observationRange> </referenceRange> </observation> </ component> <component> <observation moodCode="EVN" classCode="OBS"> <templateId root="07.10.840.1.556711.03.13.22.4.2" /> <id nullFlavor="NA" /> <code codeSystem="local" code="UKETO" displayName= "KETONE" /> <statusCode code="completed" /> <effectiveTime value="" /> <value unit="" xsi:type="PQ" value="NEGATIVE" / > <referenceRange> <observationRange> <text> NEGATIVE</text> </observationRange> </referenceRange> </observation> </component> <component> <observation moodCode ="EVN" classCode="OBS"> <templateId root= "07.10.840.1.735823.10.22.4.2" /> <id nullFlavor="NA" /> < code codeSystem="local" code="UPH" displayName="PH" /> <statusCode code ="completed" /> <effectiveTime value="" /> <value unit="" xsi:type="PQ" value="7.5" /> <referenceRange> < observationRange> <text>5.0-7.5</text> </ observationRange> </referenceRange> </observation> </ component> <component> <observation moodCode="EVN" classCode="OBS"> <templateId root="07.10.840.1.997592..22.4.2" /> <id nullFlavor="NA" /> <code codeSystem="local" code="UPROT" displayName= "PROTEIN" /> <statusCode code="completed" /> <effectiveTime value="" /> <value unit="" xsi:type="PQ" value="NEGATIVE" / > <referenceRange> <observationRange> <text> NEGATIVE</text> </observationRange> </referenceRange> </observation> </component> <component> <observation moodCode ="EVN" classCode="OBS"> <templateId root= "07.10.840.1.100263...4.2" /> <id nullFlavor="NA" /> < code codeSystem="local" code="UURO" displayName="UROBILI" /> < statusCode code="completed" /> <effectiveTime value="" /> <value unit="mg/dl" xsi:type="PQ" value="0.2" /> < referenceRange> <observationRange> <text>0.2-1.0</text> </observationRange> </referenceRange> </observation > </component> <component> <observation moodCode="EVN" classCode="OBS"> <templateId root="2.840.1.101150.03.13.22.4.2" /> <id nullFlavor="NA" /> <code codeSystem="local" code="UNITRITE " displayName="NITRITE" /> <statusCode code="completed" /> < effectiveTime value="" /> <value unit="" xsi:type="PQ" value="NEGATIVE" /> <referenceRange> <observationRange> <text>NEGATIVE</text> </observationRange> </ referenceRange> </observation> </component> <component> <observation moodCode="EVN" classCode="OBS"> <templateId root= "16.840.1.285438.10..4.2" /> <id nullFlavor="NA" /> < code codeSystem="local" code="UBLOOD" displayName="BLOOD" /> < statusCode code="completed" /> <effectiveTime value="098476307521" /> <value unit="" xsi:type="PQ" value="NEGATIVE" /> < referenceRange> <observationRange> <text>NEGATIVE</text > </observationRange> </referenceRange> </observation > </component> <component> <observation moodCode="EVN" classCode="OBS"> <templateId root="07.10.840.1.480556.10.22.4.2" /> <id nullFlavor="NA" /> <code codeSystem="local" code="ULEUKO" displayName="LEUKOCYT" /> <statusCode code="completed" /> < effectiveTime value="" /> <value unit="" xsi:type="PQ" value="NEGATIVE" /> <referenceRange> <observationRange> <text>NEGATIVE</text> </observationRange> </ referenceRange> </observation> </component> <component> <observation moodCode="EVN" classCode="OBS"> <templateId root= "216.840.1.268163.03.13.22.4.2" /> <id nullFlavor="NA" /> < code codeSystem="local" code="UWBC" displayName="WBC" /> <statusCode code="completed" /> <effectiveTime value="" /> < value unit="" xsi:type="PQ" value="NONE" /> <referenceRange> <observationRange> <text>NONE SEEN</text> </ observationRange> </referenceRange> </observation> </ component> <component> <observation moodCode="EVN" classCode="OBS"> <templateId root="216.840.1.077172.03.13.22.4.2" /> <id nullFlavor="NA" /> <code codeSystem="local" code="URBC" displayName= "RBC" /> <statusCode code="completed" /> <effectiveTime value= "" /> <value unit="" xsi:type="PQ" value="NONE" /> <referenceRange> <observationRange> <text>NONE SEEN</ text> </observationRange> </referenceRange> </ observation> </component> <component> <observation moodCode= "EVN" classCode="OBS"> <templateId root="840.1.797652.10.4.2 " /> <id nullFlavor="NA" /> <code codeSystem="local" code= "UBACT." displayName="BACTERIA" /> <statusCode code="completed" /> <effectiveTime value="761856511061" /> <value unit="/LPF" xsi: type="PQ" value="NEGATIVE" /> <referenceRange> < observationRange> <text>NONE SEEN</text> </ observationRange> </referenceRange> </observation> </ component> <component> <observation moodCode="EVN" classCode="OBS"> <templateId root="840.1.557852.03.13.22.4.2" /> <id nullFlavor="NA" /> <code codeSystem="local" code="SQEPI" displayName= "SQ EPI" /> <statusCode code="completed" /> <effectiveTime value="095905260771" /> <value unit="/LPF" xsi:type="PQ" value="NONE" / > <referenceRange> <observationRange> <text> NONE SEEN</text> </observationRange> </referenceRange> </observation> </component> </organizer> </entry> <entry> < organizer moodCode="EVN" classCode="BATTERY"> <templateId root= "840.1.008050.1022.4.1" /> <id nullFlavor="NA" /> <code codeSystem="local" code="CBC AUTO" displayName="CBC/ AUTO DIFF" /> < statusCode code="completed" /> <component> <observation moodCode= "EVN" classCode="OBS"> <templateId root="840.1.219751.1022.4.2 " /> <id nullFlavor="NA" /> <code codeSystem="local" code="WBC " displayName="WHITE BLOOD COUNT" /> <statusCode code="completed" /> <effectiveTime value="401499794765" /> <value unit="10" xsi: type="PQ" value="4.43" /> <interpretationCode codeSystem="local" code= "L" /> <referenceRange> <observationRange> < text>4.60-10.20</text> </observationRange> </referenceRange > </observation> </component> <component> <observation moodCode="EVN" classCode="OBS"> <templateId root= "2.16.840.1.851559...22.4.2" /> <id nullFlavor="NA" /> < code codeSystem="local" code="HCT" displayName="HEMATOCRIT" /> < statusCode code="completed" /> <effectiveTime value="929075141779" /> <value unit="%" xsi:type="PQ" value="40.1" /> < interpretationCode codeSystem="local" code="L" /> <referenceRange> <observationRange> <text>42.0-52.0</text> </ observationRange> </referenceRange> </observation> </ component> <component> <observation moodCode="EVN" classCode="OBS"> <templateId root="216.840.1.845082.102022.4.2" /> <id nullFlavor="NA" /> <code codeSystem="local" code="HGB" displayName= "HEMOGLOBIN" /> <statusCode code="completed" /> < effectiveTime value="186344707638" /> <value unit="g/dl" xsi:type="PQ" value="14.0" /> <referenceRange> <observationRange> <text>14.0-18.0</text> </observationRange> </ referenceRange> </observation> </component> <component> <observation moodCode="EVN" classCode="OBS"> <templateId root= "216.840.1.891273.1022.4.2" /> <id nullFlavor="NA" /> < code codeSystem="local" code="PLT.COUT" displayName="PLATELET COUNT" /> <statusCode code="completed" /> <effectiveTime value="421315430053" / > <value unit="10" xsi:type="PQ" value="206" /> < referenceRange> <observationRange> <text>142-424</text> </observationRange> </referenceRange> </observation > </component> <component> <observation moodCode="EVN" classCode="OBS"> <templateId root="216.840.1.353309.03.13.22.4.2" /> <id nullFlavor="NA" /> <code codeSystem="local" code="RBC" displayName="RBC" /> <statusCode code="completed" /> < effectiveTime value="930804099198" /> <value unit="10" xsi:type="PQ" value="3.90" /> <interpretationCode codeSystem="local" code="L" /> <referenceRange> <observationRange> <text>4.70- 6.10</text> </observationRange> </referenceRange> </ observation> </component> <component> <observation moodCode= "EVN" classCode="OBS"> <templateId root="216.840.1.272463.10.22.4.2 " /> <id nullFlavor="NA" /> <code codeSystem="local" code="MCV " displayName="MCV" /> <statusCode code="completed" /> < effectiveTime value="181934041177" /> <value unit="fl" xsi:type="PQ" value="102.8" /> <interpretationCode codeSystem="local" code="H" /> <referenceRange> <observationRange> <text>80.0- 100.0</text> </observationRange> </referenceRange> </ observation> </component> <component> <observation moodCode= "EVN" classCode="OBS"> <templateId root="216.840.1.790405.10..4.2 " /> <id nullFlavor="NA" /> <code codeSystem="local" code="MCH " displayName="MCH" /> <statusCode code="completed" /> < effectiveTime value="485560639191" /> <value unit="pg" xsi:type="PQ" value="35.9" /> <interpretationCode codeSystem="local" code="H" /> <referenceRange> <observationRange> <text>26.0- 34.0</text> </observationRange> </referenceRange> </ observation> </component> <component> <observation moodCode= "EVN" classCode="OBS"> <templateId root="216.840.1.843927.10..4.2 " /> <id nullFlavor="NA" /> <code codeSystem="local" code= "MCHC" displayName="MCHC" /> <statusCode code="completed" /> < effectiveTime value="392098851406" /> <value unit="g/dl" xsi:type="PQ" value="34.9" /> <referenceRange> <observationRange> <text>29.0-37.0</text> </observationRange> </ referenceRange> </observation> </component> <component> <observation moodCode="EVN" classCode="OBS"> <templateId root= "216.840.1.396145.03.13.22.4.2" /> <id nullFlavor="NA" /> < code codeSystem="local" code="RDW" displayName="RDW" /> <statusCode code="completed" /> <effectiveTime value="277558088698" /> < value unit="%" xsi:type="PQ" value="12.9" /> <referenceRange> <observationRange> <text>11.5-14.5</text> </ observationRange> </referenceRange> </observation> </ component> <component> <observation moodCode="EVN" classCode="OBS"> <templateId root="216.840.1.102586.03.13.22.4.2" /> <id nullFlavor="NA" /> <code codeSystem="local" code="MPV" displayName="MPV " /> <statusCode code="completed" /> <effectiveTime value= "315825156099" /> <value unit="fl" xsi:type="PQ" value="8.40" /> <referenceRange> <observationRange> <text /> </observationRange> </referenceRange> </observation> < /component> <component> <observation moodCode="EVN" classCode="OBS" > <templateId root="216.840.1.714347.03.13.22.4.2" /> <id nullFlavor="NA" /> <code codeSystem="local" code="GRAN%" displayName="GRAN%" /> <statusCode code="completed" /> < effectiveTime value="944668820388" /> <value unit="%" xsi:type="PQ " value="32.3" /> <interpretationCode codeSystem="local" code="L" /> <referenceRange> <observationRange> <text>37.0- 80.0</text> </observationRange> </referenceRange> </ observation> </component> <component> <observation moodCode= "EVN" classCode="OBS"> <templateId root="2.16.840.1.669090.10.20.4.2 " /> <id nullFlavor="NA" /> <code codeSystem="local" code= "LYMPH%" displayName="LYMPH%" /> <statusCode code="completed" / > <effectiveTime value="055777112517" /> <value unit="%" xsi:type="PQ" value="42.20" /> <referenceRange> < observationRange> <text>10.00-50.00</text> </ observationRange> </referenceRange> </observation> </ component> <component> <observation moodCode="EVN" classCode="OBS"> <templateId root="2.840.1.961651.03.13.22.4.2" /> <id nullFlavor="NA" /> <code codeSystem="local" code="MONO%" displayName="MONO%" /> <statusCode code="completed" /> < effectiveTime value="210235269310" /> <value unit="%" xsi:type="PQ " value="20.30" /> <interpretationCode codeSystem="local" code="H" /> <referenceRange> <observationRange> <text>0.00- 12.00</text> </observationRange> </referenceRange> </ observation> </component> <component> <observation moodCode= "EVN" classCode="OBS"> <templateId root="216.840.1.821181.10.2022.4.2 " /> <id nullFlavor="NA" /> <code codeSystem="local" code="EOS %" displayName="EOS%" /> <statusCode code="completed" /> <effectiveTime value="400421852597" /> <value unit="%" xsi:type ="PQ" value="4.10" /> <referenceRange> <observationRange> <text>0.00-7.00</text> </observationRange> </ referenceRange> </observation> </component> <component> <observation moodCode="EVN" classCode="OBS"> <templateId root= "2.16.840.1.626855.10.20.22.4.2" /> <id nullFlavor="NA" /> < code codeSystem="local" code="BASO%" displayName="BASO%" /> < statusCode code="completed" /> <effectiveTime value="440845546367" /> <value unit="%" xsi:type="PQ" value="1.10" /> < referenceRange> <observationRange> <text>0.00-2.50</text > </observationRange> </referenceRange> </observation > </component> <component> <observation moodCode="EVN" classCode="OBS"> <templateId root="2.16.840.1.985392.10.20.22.4.2" /> <id nullFlavor="NA" /> <code codeSystem="local" code="GRAN#" displayName="GRAN#" /> <statusCode code="completed" /> < effectiveTime value="884959535454" /> <value unit="10" xsi:type="PQ" value="1.43" /> <interpretationCode codeSystem="local" code="L" /> <referenceRange> <observationRange> <text>2.00- 6.90</text> </observationRange> </referenceRange> </ observation> </component> <component> <observation moodCode= "EVN" classCode="OBS"> <templateId root="07.10.840.1.206409.10..4.2 " /> <id nullFlavor="NA" /> <code codeSystem="local" code= "LYMPH#" displayName="LYMPH#" /> <statusCode code="completed" /> <effectiveTime value="" /> <value unit="10" xsi:type= "PQ" value="1.87" /> <referenceRange> <observationRange> <text>0.60-3.40</text> </observationRange> </ referenceRange> </observation> </component> <component> <observation moodCode="EVN" classCode="OBS"> <templateId root= "07.10.840.1.267902.03.13.22.4.2" /> <id nullFlavor="NA" /> < code codeSystem="local" code="MONO#" displayName="MONO#" /> < statusCode code="completed" /> <effectiveTime value="" /> <value unit="10" xsi:type="PQ" value="0.90" /> <referenceRange > <observationRange> <text>0.00-0.90</text> < /observationRange> </referenceRange> </observation> </ component> <component> <observation moodCode="EVN" classCode="OBS"> <templateId root="07.10.840.1.540726.10.2022.4.2" /> <id nullFlavor="NA" /> <code codeSystem="local" code="EOS#" displayName= "EOS#" /> <statusCode code="completed" /> <effectiveTime value ="992380885273" /> <value unit="10" xsi:type="PQ" value="0.18" /> <referenceRange> <observationRange> <text>0.00-0.50 </text> </observationRange> </referenceRange> </ observation> </component> <component> <observation moodCode= "EVN" classCode="OBS"> <templateId root="07.10.840.1.331299.10.4.2 " /> <id nullFlavor="NA" /> <code codeSystem="local" code= "BASO#" displayName="BASO#" /> <statusCode code="completed" /> <effectiveTime value="812347933935" /> <value unit="10" xsi:type="PQ " value="0.05" /> <referenceRange> <observationRange> <text>0.00-0.20</text> </observationRange> </ referenceRange> </observation> </component> <component> <observation moodCode="EVN" classCode="OBS"> <templateId root= "840.1.877363.03.13.22.4.2" /> <id nullFlavor="NA" /> < code codeSystem="local" code="MANDIFF" displayName="MAN DIFF" /> < statusCode code="completed" /> <effectiveTime value="591294687528" /> <value unit="" xsi:type="PQ" value="N" /> < referenceRange> <observationRange> <text>-</ text> </observationRange> </referenceRange> </ observation> </component> <component> <observation moodCode= "EVN" classCode="OBS"> <templateId root="07.10.840.1.288537.03.13.22.4.2 " /> <id nullFlavor="NA" /> <code codeSystem="local" code= "SEGS" displayName="SEGS" /> <statusCode code="completed" /> < effectiveTime value="374837304291" /> <value unit="%" xsi:type="PQ " value="37" /> <interpretationCode codeSystem="local" code="L" /> <referenceRange> <observationRange> <text>40-60</ text> </observationRange> </referenceRange> </ observation> </component> <component> <observation moodCode= "EVN" classCode="OBS"> <templateId root="216.840.1.536499.10.20.22.4.2 " /> <id nullFlavor="NA" /> <code codeSystem="local" code= "BANDS" displayName="BANDS" /> <statusCode code="completed" /> <effectiveTime value="739976986484" /> <value unit="%" xsi:type= "PQ" value="1" /> <referenceRange> <observationRange> <text>0-5</text> </observationRange> </ referenceRange> </observation> </component> <component> <observation moodCode="EVN" classCode="OBS"> <templateId root= "216.840.1.705645.10..22.4.2" /> <id nullFlavor="NA" /> < code codeSystem="local" code="LYMPHS" displayName="LYMPHS" /> < statusCode code="completed" /> <effectiveTime value="808593194877" /> <value unit="%" xsi:type="PQ" value="45" /> < interpretationCode codeSystem="local" code="H" /> <referenceRange> <observationRange> <text>20-40</text> </ observationRange> </referenceRange> </observation> </ component> <component> <observation moodCode="EVN" classCode="OBS"> <templateId root="16.840.1.414491.22.4.2" /> <id nullFlavor="NA" /> <code codeSystem="local" code="VARLYMP" displayName= "JUA NA LYMP" /> <statusCode code="completed" /> <effectiveTime value="316685187214" /> <value unit="%" xsi:type="PQ" value="0" /> <referenceRange> <observationRange> <text>0-0< /text> </observationRange> </referenceRange> </ observation> </component> <component> <observation moodCode= "EVN" classCode="OBS"> <templateId root="16.840.1.115319.03.13.22.4.2 " /> <id nullFlavor="NA" /> <code codeSystem="local" code= "MONOS" displayName="MONOS" /> <statusCode code="completed" /> <effectiveTime value="359820908720" /> <value unit="%" xsi:type= "PQ" value="13" /> <interpretationCode codeSystem="local" code="H" /> <referenceRange> <observationRange> <text>4-8</ text> </observationRange> </referenceRange> </ observation> </component> <component> <observation moodCode= "EVN" classCode="OBS"> <templateId root="07.10.840.1.509851.03.13.22.4.2 " /> <id nullFlavor="NA" /> <code codeSystem="local" code="EOS " displayName="EOS" /> <statusCode code="completed" /> < effectiveTime value="096438433739" /> <value unit="%" xsi:type="PQ " value="3" /> <referenceRange> <observationRange> <text>0-5</text> </observationRange> </referenceRange> </observation> </component> <component> <observation moodCode="EVN" classCode="OBS"> <templateId root= "16.840.1.364593.1022.4.2" /> <id nullFlavor="NA" /> < code codeSystem="local" code="BASOS" displayName="BASOS" /> < statusCode code="completed" /> <effectiveTime value="981008179840" /> <value unit="%" xsi:type="PQ" value="1" /> <referenceRange > <observationRange> <text>0-2</text> </ observationRange> </referenceRange> </observation> </ component> <component> <observation moodCode="EVN" classCode="OBS"> <templateId root="16.840.1.248794.03.13.22.4.2" /> <id nullFlavor="NA" /> <code codeSystem="local" code="PLTMORPH" displayName ="PLTMORPH" /> <statusCode code="completed" /> <effectiveTime value="694739245645" /> <value unit="" xsi:type="PQ" value="NORMAL" /> <referenceRange> <observationRange> <text /> </observationRange> </referenceRange> </observation> </component> <component> <observation moodCode="EVN" classCode ="OBS"> <templateId root="07.10.840.1.423832.1022.4.2" /> < id nullFlavor="NA" /> <code codeSystem="local" code="MACROCYT" displayName="MACROCYT" /> <statusCode code="completed" /> < effectiveTime value="369486210827" /> <value unit="" xsi:type="PQ" value="1+" /> <referenceRange> <observationRange> <text /> </observationRange> </referenceRange> </ observation> </component> </organizer> </entry> <entry> <organizer moodCode="EVN" classCode="BATTERY"> <templateId root= "2.16.840.1.307893.10..22.4.1" /> <id nullFlavor="NA" /> <code codeSystem="local" code="CMP" displayName="COMPREHENSIVE METABOL" /> < statusCode code="completed" /> <component> <observation moodCode= "EVN" classCode="OBS"> <templateId root="2.16.840.1.039659....4.2 " /> <id nullFlavor="NA" /> <code codeSystem="local" code= "CREAT" displayName="CREATININE" /> <statusCode code="completed" /> <effectiveTime value="273124045915" /> <value unit="mg/dl" xsi: type="PQ" value="1.2" /> <referenceRange> <observationRange > <text>0.6-1.3</text> </observationRange> </ referenceRange> </observation> </component> <component> <observation moodCode="EVN" classCode="OBS"> <templateId root= "2.16.840.1.734931...22.4.2" /> <id nullFlavor="NA" /> < code codeSystem="local" code="NA" displayName="SODIUM" /> <statusCode code="completed" /> <effectiveTime value="913510207324" /> < value unit="mmol/L" xsi:type="PQ" value="136" /> <referenceRange> <observationRange> <text>136-145</text> </ observationRange> </referenceRange> </observation> </ component> <component> <observation moodCode="EVN" classCode="OBS"> <templateId root="07.10.840.1.172337.10..22.4.2" /> <id nullFlavor="NA" /> <code codeSystem="local" code="TBIL" displayName= "TOTAL BILIRUBIN" /> <statusCode code="completed" /> < effectiveTime value="327425678738" /> <value unit="mg/dl" xsi:type="PQ " value="0.6" /> <referenceRange> <observationRange> <text>0.0-1.0</text> </observationRange> </ referenceRange> </observation> </component> <component> <observation moodCode="EVN" classCode="OBS"> <templateId root= "07.10.840.1.574115.03.13.22.4.2" /> <id nullFlavor="NA" /> < code codeSystem="local" code="TP" displayName="TOTAL PROTEIN" /> < statusCode code="completed" /> <effectiveTime value="" /> <value unit="g/dl" xsi:type="PQ" value="7.1" /> < referenceRange> <observationRange> <text>6.4-8.2</text> </observationRange> </referenceRange> </observation > </component> <component> <observation moodCode="EVN" classCode="OBS"> <templateId root="07.10.840.1.471809.10.2022.4.2" /> <id nullFlavor="NA" /> <code codeSystem="local" code="ALB" displayName="ALBUMIN" /> <statusCode code="completed" /> < effectiveTime value="388055621689" /> <value unit="g/dl" xsi:type="PQ" value="4.0" /> <referenceRange> <observationRange> <text>3.4-5.0</text> </observationRange> </ referenceRange> </observation> </component> <component> <observation moodCode="EVN" classCode="OBS"> <templateId root= "07.10.840.1.303983.10..22.4.2" /> <id nullFlavor="NA" /> < code codeSystem="local" code="ALKP" displayName="ALK. PHOSPHATASE" /> < statusCode code="completed" /> <effectiveTime value="737754737999" /> <value unit="U/L" xsi:type="PQ" value="55" /> <referenceRange > <observationRange> <text>50-136</text> </ observationRange> </referenceRange> </observation> </ component> <component> <observation moodCode="EVN" classCode="OBS"> <templateId root="840.1.852492.03.13.22.4.2" /> <id nullFlavor="NA" /> <code codeSystem="local" code="BUN" displayName="BUN " /> <statusCode code="completed" /> <effectiveTime value= "254752867662" /> <value unit="mg/dl" xsi:type="PQ" value="11" /> <referenceRange> <observationRange> <text>7-18</ text> </observationRange> </referenceRange> </ observation> </component> <component> <observation moodCode= "EVN" classCode="OBS"> <templateId root="07.10.840.1.963588...4.2 " /> <id nullFlavor="NA" /> <code codeSystem="local" code="CA " displayName="CALCIUM" /> <statusCode code="completed" /> < effectiveTime value="603984571012" /> <value unit="mg/dl" xsi:type="PQ " value="8.7" /> <referenceRange> <observationRange> <text>8.5-10.1</text> </observationRange> </ referenceRange> </observation> </component> <component> <observation moodCode="EVN" classCode="OBS"> <templateId root= "16.840.1.369677.10..22.4.2" /> <id nullFlavor="NA" /> < code codeSystem="local" code="CL" displayName="CHLORIDE" /> < statusCode code="completed" /> <effectiveTime value="765379002420" /> <value unit="mmol/L" xsi:type="PQ" value="99" /> < referenceRange> <observationRange> <text>98-107</text> </observationRange> </referenceRange> </observation> </component> <component> <observation moodCode="EVN" classCode ="OBS"> <templateId root="07.10.840.1.650775.10..4.2" /> < id nullFlavor="NA" /> <code codeSystem="local" code="CO2" displayName= "CO2" /> <statusCode code="completed" /> <effectiveTime value= "021298231201" /> <value unit="mmol/L" xsi:type="PQ" value="29.9" /> <referenceRange> <observationRange> <text>21.0- 32.0</text> </observationRange> </referenceRange> </ observation> </component> <component> <observation moodCode= "EVN" classCode="OBS"> <templateId root="07.10.840.1.007461.10.20.22.4.2 " /> <id nullFlavor="NA" /> <code codeSystem="local" code="GLU " displayName="GLUCOSE" /> <statusCode code="completed" /> < effectiveTime value="373137687614" /> <value unit="mg/dl" xsi:type="PQ " value="102" /> <referenceRange> <observationRange> <text>70-110</text> </observationRange> </ referenceRange> </observation> </component> <component> <observation moodCode="EVN" classCode="OBS"> <templateId root= "07.10.840.1.854447.10...4.2" /> <id nullFlavor="NA" /> < code codeSystem="local" code="K" displayName="POTASSIUM" /> < statusCode code="completed" /> <effectiveTime value="480601292157" /> <value unit="mmol/L" xsi:type="PQ" value="3.8" /> < referenceRange> <observationRange> <text>3.5-5.1</text> </observationRange> </referenceRange> </observation > </component> <component> <observation moodCode="EVN" classCode="OBS"> <templateId root="07.10.840.1.364323.10...4.2" /> <id nullFlavor="NA" /> <code codeSystem="local" code="AST" displayName="AST" /> <statusCode code="completed" /> < effectiveTime value="350344038897" /> <value unit="U/L" xsi:type="PQ" value="24" /> <referenceRange> <observationRange> <text>15-37</text> </observationRange> </referenceRange > </observation> </component> <component> <observation moodCode="EVN" classCode="OBS"> <templateId root= "07.10.840.1.475662.10...4.2" /> <id nullFlavor="NA" /> < code codeSystem="local" code="ALT" displayName="ALT" /> <statusCode code="completed" /> <effectiveTime value="676094448140" /> < value unit="U/L" xsi:type="PQ" value="21" /> <referenceRange> <observationRange> <text>-78</text> </ observationRange> </referenceRange> </observation> </ component> <component> <observation moodCode="EVN" classCode="OBS"> <templateId root="216.840.1.539948.10..22.4.2" /> <id nullFlavor="NA" /> <code codeSystem="local" code="AGAP" displayName= "AGAP" /> <statusCode code="completed" /> <effectiveTime value ="283309601576" /> <value unit="" xsi:type="PQ" value="10.9" /> <referenceRange> <observationRange> <text>6.0-16.0</ text> </observationRange> </referenceRange> </ observation> </component> <component> <observation moodCode= "EVN" classCode="OBS"> <templateId root="216.840.1.043749.10..22.4.2 " /> <id nullFlavor="NA" /> <code codeSystem="local" code="BN/ CR" displayName="BN/CR" /> <statusCode code="completed" /> < effectiveTime value="204796558052" /> <value unit="" xsi:type="PQ" value="9.2" /> <referenceRange> <observationRange> <text>6.0-20.0</text> </observationRange> </ referenceRange> </observation> </component> </organizer> </entry > <entry> <organizer moodCode="EVN" classCode="BATTERY"> <templateId root="07.10.840.1.084661.10...4.1" /> <id nullFlavor="NA" /> <code codeSystem="local" code="LIPID" displayName="LIPID PANEL" /> <statusCode code="completed" /> <component> <observation moodCode="EVN" classCode="OBS"> <templateId root="840.1.427734.03.13.22.4.2" /> <id nullFlavor="NA" /> <code codeSystem="local" code="TRIG" displayName="TRIGLYCERIDES" /> <statusCode code="completed" /> <effectiveTime value="225063582904" /> <value unit="mg/dl" xsi:type= "PQ" value="110" /> <referenceRange> <observationRange> <text>0-150</text> </observationRange> </ referenceRange> </observation> </component> <component> <observation moodCode="EVN" classCode="OBS"> <templateId root= "840.1.356447.03.13.22.4.2" /> <id nullFlavor="NA" /> < code codeSystem="local" code="CHOL" displayName="CHOLESTEROL" /> < statusCode code="completed" /> <effectiveTime value="209829702544" /> <value unit="mg/dl" xsi:type="PQ" value="173" /> < referenceRange> <observationRange> <text>0-200</text> </observationRange> </referenceRange> </observation> </component> <component> <observation moodCode="EVN" classCode= "OBS"> <templateId root="07.10.840.1.009523.03.13.22.4.2" /> < id nullFlavor="NA" /> <code codeSystem="local" code="HDL" displayName= "HDL CHOLESTEROL" /> <statusCode code="completed" /> < effectiveTime value="506310049737" /> <value unit="mg/dl" xsi:type="PQ " value="63" /> <referenceRange> <observationRange> <text>40-</text> </observationRange> </referenceRange > </observation> </component> <component> <observation moodCode="EVN" classCode="OBS"> <templateId root= "216.840.1.089864.10..4.2" /> <id nullFlavor="NA" /> < code codeSystem="local" code="LDL" displayName="LDL" /> <statusCode code="completed" /> <effectiveTime value="925383245850" /> < value unit="mg/dl" xsi:type="PQ" value="88" /> <referenceRange> <observationRange> <text>0-130</text> </ observationRange> </referenceRange> </observation> </ component> </organizer> </entry> <entry> <organizer moodCode="EVN" classCode="BATTERY"> <templateId root="216.840.1.645865.10..4.1" /> <id nullFlavor="NA" /> <code codeSystem="local" code="UA" displayName= "URINALYSIS" /> <statusCode code="completed" /> <component> < observation moodCode="EVN" classCode="OBS"> <templateId root= "07.10.840.1.416189.03.13.22.4.2" /> <id nullFlavor="NA" /> < code codeSystem="local" code="SG" displayName="SPECIFIC GRAVITY" /> < statusCode code="completed" /> <effectiveTime value="480456739881" /> <value unit="" xsi:type="PQ" value="1.3015" /> <referenceRange > <observationRange> <text /> </ observationRange> </referenceRange> </observation> </ component> <component> <observation moodCode="EVN" classCode="OBS"> <templateId root="16.840.1.010753.10.4.2" /> <id nullFlavor="NA" /> <code codeSystem="local" code="UCOLOR" displayName= "COLOR" /> <statusCode code="completed" /> <effectiveTime value="" /> <value unit="" xsi:type="PQ" value="YELLOW" /> <referenceRange> <observationRange> <text> YELLOW</text> </observationRange> </referenceRange> < /observation> </component> <component> <observation moodCode= "EVN" classCode="OBS"> <templateId root="840.1.799207.03.13.22.4.2 " /> <id nullFlavor="NA" /> <code codeSystem="local" code= "UCLARITY" displayName="CLARITY" /> <statusCode code="completed" /> <effectiveTime value="596776321812" /> <value unit="" xsi:type= "PQ" value="CLEAR" /> <referenceRange> <observationRange> <text>CLEAR</text> </observationRange> </ referenceRange> </observation> </component> <component> <observation moodCode="EVN" classCode="OBS"> <templateId root= "840.1.019063.03.13.22.4.2" /> <id nullFlavor="NA" /> < code codeSystem="local" code="UGLU" displayName="GLUCOSE" /> < statusCode code="completed" /> <effectiveTime value="086591240733" /> <value unit="mg/dl" xsi:type="PQ" value="NEGATIVE" /> < referenceRange> <observationRange> <text>NEGATIVE</text > </observationRange> </referenceRange> </observation > </component> <component> <observation moodCode="EVN" classCode="OBS"> <templateId root="07.10.840.1.542419.03.13.22.4.2" /> <id nullFlavor="NA" /> <code codeSystem="local" code="UBILI" displayName="BILI" /> <statusCode code="completed" /> < effectiveTime value="313649560036" /> <value unit="" xsi:type="PQ" value="NEGATIVE" /> <referenceRange> <observationRange> <text>NEGATIVE</text> </observationRange> </ referenceRange> </observation> </component> <component> <observation moodCode="EVN" classCode="OBS"> <templateId root= "07.10.840.1.965789.03.13.22.4.2" /> <id nullFlavor="NA" /> < code codeSystem="local" code="UKETO" displayName="KETONE" /> < statusCode code="completed" /> <effectiveTime value="990891914417" /> <value unit="" xsi:type="PQ" value="NEGATIVE" /> < referenceRange> <observationRange> <text>NEGATIVE</text > </observationRange> </referenceRange> </observation > </component> <component> <observation moodCode="EVN" classCode="OBS"> <templateId root="07.10.840.1.469125.03.13.22.4.2" /> <id nullFlavor="NA" /> <code codeSystem="local" code="UPH" displayName="PH" /> <statusCode code="completed" /> < effectiveTime value="813184206657" /> <value unit="" xsi:type="PQ" value="7.5" /> <referenceRange> <observationRange> <text>5.0-7.5</text> </observationRange> </ referenceRange> </observation> </component> <component> <observation moodCode="EVN" classCode="OBS"> <templateId root= "07.10.840.1.816538.03.13.22.4.2" /> <id nullFlavor="NA" /> < code codeSystem="local" code="UPROT" displayName="PROTEIN" /> < statusCode code="completed" /> <effectiveTime value="848080277908" /> <value unit="" xsi:type="PQ" value="NEGATIVE" /> < referenceRange> <observationRange> <text>NEGATIVE</text > </observationRange> </referenceRange> </observation > </component> <component> <observation moodCode="EVN" classCode="OBS"> <templateId root="07.10.840.1.638775.03.13.22.4.2" /> <id nullFlavor="NA" /> <code codeSystem="local" code="UURO" displayName="UROBILI" /> <statusCode code="completed" /> < effectiveTime value="599430301895" /> <value unit="mg/dl" xsi:type="PQ " value="0.2" /> <referenceRange> <observationRange> <text>0.2-1.0</text> </observationRange> </ referenceRange> </observation> </component> <component> <observation moodCode="EVN" classCode="OBS"> <templateId root= "07.10.840.1.647439.03.13.22.4.2" /> <id nullFlavor="NA" /> < code codeSystem="local" code="UNITRITE" displayName="NITRITE" /> < statusCode code="completed" /> <effectiveTime value="332522439003" /> <value unit="" xsi:type="PQ" value="NEGATIVE" /> < referenceRange> <observationRange> <text>NEGATIVE</text > </observationRange> </referenceRange> </observation > </component> <component> <observation moodCode="EVN" classCode="OBS"> <templateId root="16.840.1.563141.10...4.2" /> <id nullFlavor="NA" /> <code codeSystem="local" code="UBLOOD" displayName="BLOOD" /> <statusCode code="completed" /> < effectiveTime value="272457974725" /> <value unit="" xsi:type="PQ" value="NEGATIVE" /> <referenceRange> <observationRange> <text>NEGATIVE</text> </observationRange> </ referenceRange> </observation> </component> <component> <observation moodCode="EVN" classCode="OBS"> <templateId root= "16.840.1.001273.10..22.4.2" /> <id nullFlavor="NA" /> < code codeSystem="local" code="ULEUKO" displayName="LEUKOCYT" /> < statusCode code="completed" /> <effectiveTime value="227396036052" /> <value unit="" xsi:type="PQ" value="NEGATIVE" /> < referenceRange> <observationRange> <text>NEGATIVE</text > </observationRange> </referenceRange> </observation > </component> <component> <observation moodCode="EVN" classCode="OBS"> <templateId root="07.10.840.1.739875.03.13.22.4.2" /> <id nullFlavor="NA" /> <code codeSystem="local" code="UWBC" displayName="WBC" /> <statusCode code="completed" /> < effectiveTime value="915045278134" /> <value unit="" xsi:type="PQ" value="NONE" /> <referenceRange> <observationRange> <text>NONE SEEN</text> </observationRange> </ referenceRange> </observation> </component> <component> <observation moodCode="EVN" classCode="OBS"> <templateId root= "216.840.1.164374.03.13.22.4.2" /> <id nullFlavor="NA" /> < code codeSystem="local" code="URBC" displayName="RBC" /> <statusCode code="completed" /> <effectiveTime value="255954791237" /> < value unit="" xsi:type="PQ" value="NONE" /> <referenceRange> <observationRange> <text>NONE SEEN</text> </ observationRange> </referenceRange> </observation> </ component> <component> <observation moodCode="EVN" classCode="OBS"> <templateId root="16.840.1.569698.03.13.22.4.2" /> <id nullFlavor="NA" /> <code codeSystem="local" code="UBACT." displayName= "BACTERIA" /> <statusCode code="completed" /> <effectiveTime value="922350946624" /> <value unit="/LPF" xsi:type="PQ" value= "NEGATIVE" /> <referenceRange> <observationRange> <text>NONE SEEN</text> </observationRange> </ referenceRange> </observation> </component> <component> <observation moodCode="EVN" classCode="OBS"> <templateId root= "216.840.1.523306.10..4.2" /> <id nullFlavor="NA" /> < code codeSystem="local" code="SQEPI" displayName="SQ EPI" /> < statusCode code="completed" /> <effectiveTime value="120968136792" /> <value unit="/LPF" xsi:type="PQ" value="NONE" /> < referenceRange> <observationRange> <text>NONE SEEN</text > </observationRange> </referenceRange> </observation > </component> </organizer> </entry> <entry> <organizer moodCode= "EVN" classCode="BATTERY"> <templateId root="16.840.1.512079...4.1 " /> <id nullFlavor="NA" /> <code codeSystem="local" code="CMP" displayName="COMPREHENSIVE METABOL" /> <statusCode code="completed" /> <component> <observation moodCode="EVN" classCode="OBS"> < templateId root="16.840.1.039293...4.2" /> <id nullFlavor="NA " /> <code codeSystem="local" code="CREAT" displayName="CREATININE" /> <statusCode code="completed" /> <effectiveTime value= "079468056177" /> <value unit="mg/dl" xsi:type="PQ" value="1.0" /> <referenceRange> <observationRange> <text>0.6-1.3< /text> </observationRange> </referenceRange> </ observation> </component> <component> <observation moodCode= "EVN" classCode="OBS"> <templateId root="216.840.1.318221.10..4.2 " /> <id nullFlavor="NA" /> <code codeSystem="local" code="NA " displayName="SODIUM" /> <statusCode code="completed" /> < effectiveTime value="023135161820" /> <value unit="mmol/L" xsi:type="PQ " value="131" /> <interpretationCode codeSystem="local" code="L" /> <referenceRange> <observationRange> <text>136-145 </text> </observationRange> </referenceRange> </ observation> </component> <component> <observation moodCode= "EVN" classCode="OBS"> <templateId root="2.16.840.1.966828.10...4.2 " /> <id nullFlavor="NA" /> <code codeSystem="local" code= "TBIL" displayName="TOTAL BILIRUBIN" /> <statusCode code="completed" / > <effectiveTime value="026918242728" /> <value unit="mg/dl" xsi:type="PQ" value="0.5" /> <referenceRange> < observationRange> <text>0.0-1.0</text> </ observationRange> </referenceRange> </observation> </ component> <component> <observation moodCode="EVN" classCode="OBS"> <templateId root="2.16.840.1.580559.10...4.2" /> <id nullFlavor="NA" /> <code codeSystem="local" code="TP" displayName= "TOTAL PROTEIN" /> <statusCode code="completed" /> < effectiveTime value="091071590425" /> <value unit="g/dl" xsi:type="PQ" value="7.4" /> <referenceRange> <observationRange> <text>6.4-8.2</text> </observationRange> </ referenceRange> </observation> </component> <component> <observation moodCode="EVN" classCode="OBS"> <templateId root= "16.840.1.769787.10..22.4.2" /> <id nullFlavor="NA" /> < code codeSystem="local" code="ALB" displayName="ALBUMIN" /> < statusCode code="completed" /> <effectiveTime value="" /> <value unit="g/dl" xsi:type="PQ" value="4.1" /> < referenceRange> <observationRange> <text>3.4-5.0</text> </observationRange> </referenceRange> </observation > </component> <component> <observation moodCode="EVN" classCode="OBS"> <templateId root="16.840.1.510827.10...4.2" /> <id nullFlavor="NA" /> <code codeSystem="local" code="ALKP" displayName="ALK. PHOSPHATASE" /> <statusCode code="completed" /> <effectiveTime value="" /> <value unit="U/L" xsi:type= "PQ" value="55" /> <referenceRange> <observationRange> <text>50-136</text> </observationRange> </ referenceRange> </observation> </component> <component> <observation moodCode="EVN" classCode="OBS"> <templateId root= "16.840.1.949436.10..22.4.2" /> <id nullFlavor="NA" /> < code codeSystem="local" code="BUN" displayName="BUN" /> <statusCode code="completed" /> <effectiveTime value="307513660237" /> < value unit="mg/dl" xsi:type="PQ" value="13" /> <referenceRange> <observationRange> <text>7-18</text> </ observationRange> </referenceRange> </observation> </ component> <component> <observation moodCode="EVN" classCode="OBS"> <templateId root="16.840.1.308333.10.4.2" /> <id nullFlavor="NA" /> <code codeSystem="local" code="CA" displayName= "CALCIUM" /> <statusCode code="completed" /> <effectiveTime value="242247450599" /> <value unit="mg/dl" xsi:type="PQ" value="8.9" / > <referenceRange> <observationRange> <text>8.5 -10.1</text> </observationRange> </referenceRange> </ observation> </component> <component> <observation moodCode= "EVN" classCode="OBS"> <templateId root="07.10.840.1.284496.03.13.22.4.2 " /> <id nullFlavor="NA" /> <code codeSystem="local" code="CL " displayName="CHLORIDE" /> <statusCode code="completed" /> < effectiveTime value="748366004909" /> <value unit="mmol/L" xsi:type="PQ " value="96" /> <interpretationCode codeSystem="local" code="L" /> <referenceRange> <observationRange> <text>98-107</ text> </observationRange> </referenceRange> </ observation> </component> <component> <observation moodCode= "EVN" classCode="OBS"> <templateId root="07.10.840.1.021191.10..4.2 " /> <id nullFlavor="NA" /> <code codeSystem="local" code="CO2 " displayName="CO2" /> <statusCode code="completed" /> < effectiveTime value="696223238515" /> <value unit="mmol/L" xsi:type="PQ " value="30.7" /> <referenceRange> <observationRange> <text>21.0-32.0</text> </observationRange> </ referenceRange> </observation> </component> <component> <observation moodCode="EVN" classCode="OBS"> <templateId root= "16.840.1.393772.10..4.2" /> <id nullFlavor="NA" /> < code codeSystem="local" code="GLU" displayName="GLUCOSE" /> < statusCode code="completed" /> <effectiveTime value="386265363630" /> <value unit="mg/dl" xsi:type="PQ" value="100" /> < referenceRange> <observationRange> <text>70-110</text> </observationRange> </referenceRange> </observation> </component> <component> <observation moodCode="EVN" classCode ="OBS"> <templateId root="07.10.840.1.305668...4.2" /> < id nullFlavor="NA" /> <code codeSystem="local" code="K" displayName= "POTASSIUM" /> <statusCode code="completed" /> <effectiveTime value="" /> <value unit="mmol/L" xsi:type="PQ" value="4.5" /> <referenceRange> <observationRange> <text> 3.5-5.1</text> </observationRange> </referenceRange> </observation> </component> <component> <observation moodCode= "EVN" classCode="OBS"> <templateId root="07.10.840.1.554621.10...4.2 " /> <id nullFlavor="NA" /> <code codeSystem="local" code="AST " displayName="AST" /> <statusCode code="completed" /> < effectiveTime value="553405908674" /> <value unit="U/L" xsi:type="PQ" value="31" /> <referenceRange> <observationRange> <text>15-37</text> </observationRange> </referenceRange > </observation> </component> <component> <observation moodCode="EVN" classCode="OBS"> <templateId root= "07.10.840.1.467266.10..22.4.2" /> <id nullFlavor="NA" /> < code codeSystem="local" code="ALT" displayName="ALT" /> <statusCode code="completed" /> <effectiveTime value="562442348247" /> < value unit="U/L" xsi:type="PQ" value="29" /> <referenceRange> <observationRange> <text>12-78</text> </ observationRange> </referenceRange> </observation> </ component> <component> <observation moodCode="EVN" classCode="OBS"> <templateId root="07.10.840.1.201757.10..22.4.2" /> <id nullFlavor="NA" /> <code codeSystem="local" code="AGAP" displayName= "AGAP" /> <statusCode code="completed" /> <effectiveTime value ="101240716701" /> <value unit="" xsi:type="PQ" value="8.8" /> <referenceRange> <observationRange> <text>6.0-16.0</ text> </observationRange> </referenceRange> </ observation> </component> <component> <observation moodCode= "EVN" classCode="OBS"> <templateId root="07.10.840.1.613674..20.22.4.2 " /> <id nullFlavor="NA" /> <code codeSystem="local" code="BN/ CR" displayName="BN/CR" /> <statusCode code="completed" /> < effectiveTime value="965210253803" /> <value unit="" xsi:type="PQ" value="13.0" /> <referenceRange> <observationRange> <text>6.0-20.0</text> </observationRange> </ referenceRange> </observation> </component> </organizer> </entry > <entry> <organizer moodCode="EVN" classCode="BATTERY"> <templateId root="216.840.1.925089.10...4.1" /> <id nullFlavor="NA" /> <code codeSystem="local" code="TSH" displayName="HTSH" /> <statusCode code= "completed" /> <component> <observation moodCode="EVN" classCode= "OBS"> <templateId root="216.840.1.356695.10...4.2" /> < id nullFlavor="NA" /> <code codeSystem="local" code="TSH" displayName= "HTSH" /> <statusCode code="completed" /> <effectiveTime value ="838463429927" /> <value unit="uiU/ml" xsi:type="PQ" value="1.50" /> <referenceRange> <observationRange> <text>0.35- 3.74</text> </observationRange> </referenceRange> </ observation> </component> </organizer> </entry> <entry> <organizer moodCode="EVN" classCode="BATTERY"> <templateId root= "216.840.1.482494.10..4.1" /> <id nullFlavor="NA" /> <code codeSystem="local" code="VIT B12" displayName="VITAMIN B12" /> <statusCode code="completed" /> <component> <observation moodCode="EVN" classCode="OBS"> <templateId root="07.10.840.1.733661.10..22.4.2" /> <id nullFlavor="NA" /> <code codeSystem="local" code="VITB12" displayName="VIT B12" /> <statusCode code="completed" /> < effectiveTime value="831964646044" /> <value unit="pg/ml" xsi:type="PQ " value="1096" /> <interpretationCode codeSystem="local" code="H" /> <referenceRange> <observationRange> <text>200- 900</text> </observationRange> </referenceRange> </ observation> </component> </organizer> </entry> <entry> <organizer moodCode="EVN" classCode="BATTERY"> <templateId root= "07.10.840.1.194708.10..4.1" /> <id nullFlavor="NA" /> <code codeSystem="local" code="CBC AUTO" displayName="CBC/ AUTO DIFF" /> < statusCode code="completed" /> <component> <observation moodCode= "EVN" classCode="OBS"> <templateId root="07.10.840.1.345620.10..22.4.2 " /> <id nullFlavor="NA" /> <code codeSystem="local" code="WBC " displayName="WHITE BLOOD COUNT" /> <statusCode code="completed" /> <effectiveTime value="845629343816" /> <value unit="10" xsi: type="PQ" value="3.51" /> <interpretationCode codeSystem="local" code= "L" /> <referenceRange> <observationRange> < text>4.60-10.20</text> </observationRange> </referenceRange > </observation> </component> <component> <observation moodCode="EVN" classCode="OBS"> <templateId root= "216.840.1.489379.10.20.22.4.2" /> <id nullFlavor="NA" /> < code codeSystem="local" code="HCT" displayName="HEMATOCRIT" /> < statusCode code="completed" /> <effectiveTime value="881802139293" /> <value unit="%" xsi:type="PQ" value="40.9" /> < interpretationCode codeSystem="local" code="L" /> <referenceRange> <observationRange> <text>42.0-52.0</text> </ observationRange> </referenceRange> </observation> </ component> <component> <observation moodCode="EVN" classCode="OBS"> <templateId root="07.10.840.1.870659.10.22.4.2" /> <id nullFlavor="NA" /> <code codeSystem="local" code="HGB" displayName= "HEMOGLOBIN" /> <statusCode code="completed" /> < effectiveTime value="809378210827" /> <value unit="g/dl" xsi:type="PQ" value="15.0" /> <referenceRange> <observationRange> <text>14.0-18.0</text> </observationRange> </ referenceRange> </observation> </component> <component> <observation moodCode="EVN" classCode="OBS"> <templateId root= "16.840.1.995222.10.20.22.4.2" /> <id nullFlavor="NA" /> < code codeSystem="local" code="PLT.COUT" displayName="PLATELET COUNT" /> <statusCode code="completed" /> <effectiveTime value="893763035926" / > <value unit="10" xsi:type="PQ" value="219" /> < referenceRange> <observationRange> <text>142-424</text> </observationRange> </referenceRange> </observation > </component> <component> <observation moodCode="EVN" classCode="OBS"> <templateId root="16.840.1.133752.10.20.22.4.2" /> <id nullFlavor="NA" /> <code codeSystem="local" code="RBC" displayName="RBC" /> <statusCode code="completed" /> < effectiveTime value="325184201962" /> <value unit="10" xsi:type="PQ" value="3.96" /> <interpretationCode codeSystem="local" code="L" /> <referenceRange> <observationRange> <text>4.70- 6.10</text> </observationRange> </referenceRange> </ observation> </component> <component> <observation moodCode= "EVN" classCode="OBS"> <templateId root="16.840.1.742589.10.20.22.4.2 " /> <id nullFlavor="NA" /> <code codeSystem="local" code="MCV " displayName="MCV" /> <statusCode code="completed" /> < effectiveTime value="366357152515" /> <value unit="fl" xsi:type="PQ" value="103.3" /> <interpretationCode codeSystem="local" code="H" /> <referenceRange> <observationRange> <text>80.0- 100.0</text> </observationRange> </referenceRange> </ observation> </component> <component> <observation moodCode= "EVN" classCode="OBS"> <templateId root="16.840.1.844730.10.20.22.4.2 " /> <id nullFlavor="NA" /> <code codeSystem="local" code="MCH " displayName="MCH" /> <statusCode code="completed" /> < effectiveTime value="" /> <value unit="pg" xsi:type="PQ" value="37.9" /> <interpretationCode codeSystem="local" code="H" /> <referenceRange> <observationRange> <text>26.0- 34.0</text> </observationRange> </referenceRange> </ observation> </component> <component> <observation moodCode= "EVN" classCode="OBS"> <templateId root="07.10.840.1.612750...4.2 " /> <id nullFlavor="NA" /> <code codeSystem="local" code= "MCHC" displayName="MCHC" /> <statusCode code="completed" /> < effectiveTime value="" /> <value unit="g/dl" xsi:type="PQ" value="36.7" /> <referenceRange> <observationRange> <text>29.0-37.0</text> </observationRange> </ referenceRange> </observation> </component> <component> <observation moodCode="EVN" classCode="OBS"> <templateId root= "07.10.840.1.706332.10.20.22.4.2" /> <id nullFlavor="NA" /> < code codeSystem="local" code="RDW" displayName="RDW" /> <statusCode code="completed" /> <effectiveTime value="" /> < value unit="%" xsi:type="PQ" value="12.6" /> <referenceRange> <observationRange> <text>11.5-14.5</text> </ observationRange> </referenceRange> </observation> </ component> <component> <observation moodCode="EVN" classCode="OBS"> <templateId root="216.840.1.704924.10.2022.4.2" /> <id nullFlavor="NA" /> <code codeSystem="local" code="MPV" displayName="MPV " /> <statusCode code="completed" /> <effectiveTime value= "208492588009" /> <value unit="fl" xsi:type="PQ" value="8.20" /> <referenceRange> <observationRange> <text /> </observationRange> </referenceRange> </observation> < /component> <component> <observation moodCode="EVN" classCode="OBS" > <templateId root="07.10.840.1.845889.03.13.224.2" /> <id nullFlavor="NA" /> <code codeSystem="local" code="GRAN%" displayName="GRAN%" /> <statusCode code="completed" /> < effectiveTime value="777144010197" /> <value unit="%" xsi:type="PQ " value="42.0" /> <referenceRange> <observationRange> <text>37.0-80.0</text> </observationRange> </ referenceRange> </observation> </component> <component> <observation moodCode="EVN" classCode="OBS"> <templateId root= "07.10.840.1.115455.20.4.2" /> <id nullFlavor="NA" /> < code codeSystem="local" code="LYMPH%" displayName="LYMPH%" /> < statusCode code="completed" /> <effectiveTime value="102573800394" /> <value unit="%" xsi:type="PQ" value="27.60" /> < referenceRange> <observationRange> <text>10.00-50.00</ text> </observationRange> </referenceRange> </ observation> </component> <component> <observation moodCode= "EVN" classCode="OBS"> <templateId root="2.16.840.1.478507.10.20.22.4.2 " /> <id nullFlavor="NA" /> <code codeSystem="local" code= "MONO%" displayName="MONO%" /> <statusCode code="completed" /> <effectiveTime value="148593229754" /> <value unit="%" xsi:type="PQ" value="25.90" /> <interpretationCode codeSystem="local" code="H" /> <referenceRange> <observationRange> <text>0.00-12.00</text> </observationRange> </ referenceRange> </observation> </component> <component> <observation moodCode="EVN" classCode="OBS"> <templateId root= "2.16.840.1.740599.10.20.22.4.2" /> <id nullFlavor="NA" /> < code codeSystem="local" code="EOS%" displayName="EOS%" /> < statusCode code="completed" /> <effectiveTime value="301282548992" /> <value unit="%" xsi:type="PQ" value="3.40" /> < referenceRange> <observationRange> <text>0.00-7.00</text > </observationRange> </referenceRange> </observation > </component> <component> <observation moodCode="EVN" classCode="OBS"> <templateId root="07.10.840.1.415370.10.20.22.4.2" /> <id nullFlavor="NA" /> <code codeSystem="local" code="BASO&#37 ;" displayName="BASO%" /> <statusCode code="completed" /> <effectiveTime value="" /> <value unit="%" xsi:type="PQ " value="1.10" /> <referenceRange> <observationRange> <text>0.00-2.50</text> </observationRange> </ referenceRange> </observation> </component> <component> <observation moodCode="EVN" classCode="OBS"> <templateId root= "840.1.943888.10.4.2" /> <id nullFlavor="NA" /> < code codeSystem="local" code="GRAN#" displayName="GRAN#" /> < statusCode code="completed" /> <effectiveTime value="" /> <value unit="10" xsi:type="PQ" value="1.47" /> < interpretationCode codeSystem="local" code="L" /> <referenceRange> <observationRange> <text>2.00-6.90</text> </ observationRange> </referenceRange> </observation> </ component> <component> <observation moodCode="EVN" classCode="OBS"> <templateId root="840.1.191292.10.2022.4.2" /> <id nullFlavor="NA" /> <code codeSystem="local" code="LYMPH#" displayName= "LYMPH#" /> <statusCode code="completed" /> <effectiveTime value="" /> <value unit="10" xsi:type="PQ" value="0.97" /> <referenceRange> <observationRange> <text>0.60 -3.40</text> </observationRange> </referenceRange> </ observation> </component> <component> <observation moodCode= "EVN" classCode="OBS"> <templateId root="07.10.840.1.669445.10..4.2 " /> <id nullFlavor="NA" /> <code codeSystem="local" code= "MONO#" displayName="MONO#" /> <statusCode code="completed" /> <effectiveTime value="871723611734" /> <value unit="10" xsi:type="PQ " value="0.91" /> <interpretationCode codeSystem="local" code="H" /> <referenceRange> <observationRange> <text>0.00- 0.90</text> </observationRange> </referenceRange> </ observation> </component> <component> <observation moodCode= "EVN" classCode="OBS"> <templateId root="840.1.480222.03.13.22.4.2 " /> <id nullFlavor="NA" /> <code codeSystem="local" code="EOS #" displayName="EOS#" /> <statusCode code="completed" /> < effectiveTime value="768845259277" /> <value unit="10" xsi:type="PQ" value="0.12" /> <referenceRange> <observationRange> <text>0.00-0.50</text> </observationRange> </ referenceRange> </observation> </component> <component> <observation moodCode="EVN" classCode="OBS"> <templateId root= "07.10.840.1.954880.03.13.22.4.2" /> <id nullFlavor="NA" /> < code codeSystem="local" code="BASO#" displayName="BASO#" /> < statusCode code="completed" /> <effectiveTime value="916147865041" /> <value unit="10" xsi:type="PQ" value="0.04" /> <referenceRange > <observationRange> <text>0.00-0.20</text> < /observationRange> </referenceRange> </observation> </ component> <component> <observation moodCode="EVN" classCode="OBS"> <templateId root="07.10.840.1.713239.10.20.22.4.2" /> <id nullFlavor="NA" /> <code codeSystem="local" code="SEGS" displayName= "SEGS" /> <statusCode code="completed" /> <effectiveTime value ="573237964854" /> <value unit="%" xsi:type="PQ" value="48" /> <referenceRange> <observationRange> <text>40-60</ text> </observationRange> </referenceRange> </ observation> </component> <component> <observation moodCode= "EVN" classCode="OBS"> <templateId root="07.10.840.1.031739.10..22.4.2 " /> <id nullFlavor="NA" /> <code codeSystem="local" code= "LYMPHS" displayName="LYMPHS" /> <statusCode code="completed" /> <effectiveTime value="301035759267" /> <value unit="%" xsi:type ="PQ" value="29" /> <referenceRange> <observationRange> <text>20-40</text> </observationRange> </ referenceRange> </observation> </component> <component> <observation moodCode="EVN" classCode="OBS"> <templateId root= "840.1.469371.22.4.2" /> <id nullFlavor="NA" /> < code codeSystem="local" code="MONOS" displayName="MONOS" /> < statusCode code="completed" /> <effectiveTime value="472659740991" /> <value unit="%" xsi:type="PQ" value="20" /> < interpretationCode codeSystem="local" code="H" /> <referenceRange> <observationRange> <text>4-8</text> </ observationRange> </referenceRange> </observation> </ component> <component> <observation moodCode="EVN" classCode="OBS"> <templateId root="07.10.840.1.812924.03.13.22.4.2" /> <id nullFlavor="NA" /> <code codeSystem="local" code="EOS" displayName="EOS " /> <statusCode code="completed" /> <effectiveTime value= "130018880242" /> <value unit="%" xsi:type="PQ" value="3" /> <referenceRange> <observationRange> <text>0-5</text > </observationRange> </referenceRange> </observation > </component> <component> <observation moodCode="EVN" classCode="OBS"> <templateId root="07.10.840.1.480301.03.13.22.4.2" /> <id nullFlavor="NA" /> <code codeSystem="local" code="ANISO" displayName="ANISO" /> <statusCode code="completed" /> < effectiveTime value="876565820957" /> <value unit="" xsi:type="PQ" value="1+" /> <referenceRange> <observationRange> <text /> </observationRange> </referenceRange> </ observation> </component> <component> <observation moodCode= "EVN" classCode="OBS"> <templateId root="07.10.840.1.414981.10..4.2 " /> <id nullFlavor="NA" /> <code codeSystem="local" code= "META" displayName="META" /> <statusCode code="completed" /> < effectiveTime value="129482280796" /> <value unit="%" xsi:type="PQ " value="1+" /> <interpretationCode codeSystem="local" code="H" /> <referenceRange> <observationRange> <text>0-0</ text> </observationRange> </referenceRange> </ observation> </component> </organizer> </entry> <entry> <organizer moodCode="EVN" classCode="BATTERY"> <templateId root= "07.10.840.1.974356.10..22.4.1" /> <id nullFlavor="NA" /> <code codeSystem="local" code="LIPID" displayName="LIPID PANEL" /> <statusCode code="completed" /> <component> <observation moodCode="EVN" classCode="OBS"> <templateId root="16.840.1.095107.10..22.4.2" /> <id nullFlavor="NA" /> <code codeSystem="local" code="TRIG" displayName="TRIGLYCERIDES" /> <statusCode code="completed" /> <effectiveTime value="689565170818" /> <value unit="mg/dl" xsi:type= "PQ" value="98" /> <referenceRange> <observationRange> <text>0-150</text> </observationRange> </ referenceRange> </observation> </component> <component> <observation moodCode="EVN" classCode="OBS"> <templateId root= "216.840.1.409894.10..22.4.2" /> <id nullFlavor="NA" /> < code codeSystem="local" code="CHOL" displayName="CHOLESTEROL" /> < statusCode code="completed" /> <effectiveTime value="029756204951" /> <value unit="mg/dl" xsi:type="PQ" value="192" /> < referenceRange> <observationRange> <text>0-200</text> </observationRange> </referenceRange> </observation> </component> <component> <observation moodCode="EVN" classCode= "OBS"> <templateId root="216.840.1.911335.10..4.2" /> < id nullFlavor="NA" /> <code codeSystem="local" code="HDL" displayName= "HDL CHOLESTEROL" /> <statusCode code="completed" /> < effectiveTime value="459344089764" /> <value unit="mg/dl" xsi:type="PQ " value="65" /> <referenceRange> <observationRange> <text>40-</text> </observationRange> </referenceRange > </observation> </component> <component> <observation moodCode="EVN" classCode="OBS"> <templateId root= "216.840.1.890718.10..22.4.2" /> <id nullFlavor="NA" /> < code codeSystem="local" code="LDL" displayName="LDL" /> <statusCode code="completed" /> <effectiveTime value="309189785612" /> < value unit="mg/dl" xsi:type="PQ" value="107" /> <referenceRange> <observationRange> <text>0-130</text> </ observationRange> </referenceRange> </observation> </ component> </organizer> </entry></section> Encounters ACCT No. Visit Date/Time Discharge Status Pt. Type Provider Facility Loc./Unit Complaint [id number] 05/08/2017 08:55:00 05/08/2017 08[facility]55:[id number]/07/2017 13:03:00 05/07/2017 13:03:00 DIS Outpatient [facility]IV[facility] LAB [id number] 10/17/2016 07:16:00 10/17/2016 07:16:00 DIS Outpatient ALBARO [facility] RAD [id number] 10/03/2016 08:32:00 10/03/2016 08:32:00 [facility] [id number] 09/19/2016 15:54:00 09/19/2016 15:54:00 [facility] [id number] 08/18/2016 08:56:00 08/18/2016 08:56:00 [facility] [id number] 05/30/2016 13:02:00 05/30/2016 13:02:00 [facility] [id number] 01/29/2016 13:57:50 01/29/2016 23:59:59 [facility] [id number] 12/06/2015 09:23:00 12/06/2015 09:23:00 DIS Outpatient COELHOJUAN LUIS Patel [facility] RAD [id number] 11/19/2015 09:43:00 11/19/2015 09:43:00 [facility] [id number] 10/23/2015 17:42:00 10/23/2015 21:04:00 DIS Emergency SUN MAGDALENA [facility] ER [id number] 09/17/2015 07:29:00 09/17/2015 07:29:00 DIS Outpatient ALBAROWM SALCEDO [facility] LX [id number] 03/15/2015 18:21:00 03/15/2015 20:40:00 DIS Emergency PEDRO VASQUEZ [facility] ER [id number] 01/16/2015 15:38:00 01/16/2015 16:17:00 DIS Emergency PEDRO VASQUEZ [facility] ER [id number] 01/06/2015 19:57:00 01/06/2015 22:12:00 DIS Emergency KEKE TIAN [facility] ER [id number] 10/02/2014 21:27:00 10/02/2014 23:35:00 DIS Emergency UZIEL TIRADO [facility] ER [id number] 09/29/2014 09:22:00 09/29/2014 09:22:00 [facility] [id number] 09/26/2014 14:51:00 09/26/2014 14:51:00 [facility] [id number] 09/05/2014 08:01:00 09/05/2014 08:01:00 DIS Outpatient WM IRVIN [facility] LX [id number] 08/30/2014 09:16:00 08/30/2014 09:16:00 [facility] [id number] 05/13/2014 15:50:00 05/13/2014 18:05:00 DIS Emergency ASMITA DAVIES [facility] ER [id number] 03/23/2014 16:56:00 03/23/2014 18:35:00 DIS Emergency TAMIKA YOUNG [facility] ER [id number] 11/04/2013 08:59:00 11/04/2013 08:59:00 DIS Outpatient AVIVA [facility] RAD [id number] 11/01/2013 15:13:00 11/01/2013 15:13:00 DIS Outpatient CHICAS, [facility] RAD [id number] 10/27/2013 12:24:00 10/27/2013 12[facility]24:00 [id number] 10/25/2013 15:33:00 10/25/2013 15:33:00 DIS Outpatient CHICAS, [facility] RAD [id number] 08/25/2013 09:01:00 08/25/2013 09:01:00 DIS Outpatient WM IRVIN [facility] [id number] 05/09/2013 10:10:00 05/09/2013 10:10:00 DIS Outpatient Jim KHAN [facility] LAB [id number] 03/06/2014 00:00:00 Document Registration
[2017-05-17 17:17] LABS: BASOPHILS # (AUTO) 0.1 10^3/uL (0.0-0.1); BASOPHILS % (AUTO) 1 % (0-10); EOSINOPHILS # (AUTO) 0.2 10^3/uL (0.0-0.3); EOSINOPHILS % (AUTO) 3 % (0-10); LYMPHOCYTES # (AUTO) 1.4 X 10^3 (1.0-4.0); LYMPHOCYTES % (AUTO) 20 % (12-44); MEAN CORPUSCULAR HEMOGLOBIN 37 PG (25-34); MEAN CORPUSCULAR HGB CONC 36 G/DL (32-36); MEAN CORPUSCULAR VOLUME 103 FL (80-99); MEAN PLATELET VOLUME 8.4 FL (7.4-10.4); MONOCYTES # (AUTO) 0.9 X 10^3 (0.0-1.0); MONOCYTES % (AUTO) 13 % (0-12); NEUTROPHILS # (AUTO) 4.5 X 10^3 (1.8-7.8); NEUTROPHILS % (AUTO) 64 % (42-75); PLATELET COUNT 221 10^3/uL (130-400); RED BLOOD COUNT 4.33 10^6/uL (4.35-5.85); RED CELL DISTRIBUTION WIDTH 12.3 % (10.0-14.5)
--- NOTE | 2017-05-17 17:18 | ED Neurological Problem ---
General Chief Complaint: Neuro-Stroke Like Symptoms Stated Complaint: CP Source: patient, family Exam Limitations: clinical condition History of Present Illness Time seen by provider: 16:57 Initial Comments Last known well time 1430 [place] late [place] and the patient according to the slid to the floor limp with weakness on the right side of his upper and lower extremity and right facial droop. He has slurred speech. No history of stroke, heart attack, coronary artery disease, hypertension, hypercholesterolemia. He is weak and unable to walk or stand on his own. No history of diabetes. He denies any chest pain, nausea, vomiting, diarrhea, abdominal pain. 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 He is not having any tearing sensation or pain in his belly or chest. He says he had an EKG and an echocardiogram recently but does not know the results other than they were normal. Allergies and Home Medications Allergies Coded Allergies: No Known Drug Allergies (Unverified , 05/17/17) Home Medications Finasteride 5 Mg Tablet, (Reported) Lisinopril 5 Mg Tablet, 5 MG PO DAILY, (Reported) Lorazepam 1 Mg Tablet, (Reported) Polyethylene Glycol 3350 255 Gm Powder, (Reported) Tamsulosin HCl 0.4 Mg Cap.er.24h, (Reported) Trazodone HCl 50 Mg Tablet, (Reported) Constitutional: see HPI Eyes: See HPI Ears, Nose, Mouth, Throat: see HPI Respiratory: see HPI Cardiovascular: see HPI Gastrointestinal: see HPI Genitourinary: No discharge, No dysuria Physical Exam Vital Signs Vital Sign - Last 12Hours 05/17/17 05/17/17 17:05 18:47 Temp 98.1 Pulse 70 Resp 20 B/P (MAP) 149/89 (109) Pulse Ox 94 O2 Delivery Room Air Capillary Refill : General Appearance: WD/WN, moderate distress HEENT: PERRL/EOMI, normal ENT inspection, pharynx normal Neck: non-tender, full range of motion, normal inspection Respiratory: chest non-tender, lungs clear, normal breath sounds, no respiratory distress Cardiovascular: normal peripheral pulses, regular rate, rhythm, no gallop Peripheral Pulses: 1+ Dorsalis Pedis (R), 1+ Left Dors-Pedis (L), 1+ Radial Pulses (R), 1+ Radial Pulses (L) Gastrointestinal: normal bowel sounds, non tender, soft, no organomegaly Extremities: normal range of motion, non-tender, normal inspection, no pedal edema, normal capillary refill Neurologic/Psychiatric: alert, normal mood/affect, oriented x 3, other (right facial drooping) Crainal Nerves: normal hearing, No normal speech, PERRL, No abnormal pupil position, abnormal speech (slurring heavy and slow), facial asymmetry (very mild right-sided facial droop), facial droop (right), No facial paresthesias, facial weakness (mild), No gaze palsy, other (no tongue deviation) Coordination/Gait: abnormal gait (unable to stand even to transfer) Motor/Sensory: no sensory deficit, pronator drift (R) (upper and lower external his), weak motor strength RUE, weak motor strength RLE Skin: normal color, warm/dry Stroke Onset of Symptoms Date of Onset of Symptoms: May 17, 2017 Time of Symptom Onset: 14:30 Onset of Symptoms: Yes Symptoms onset unknown: No NIH Stroke Scale Assessment Select: Initial Level of Consciousness: 0=Alert (0), Level of Consciousness- Questions: 0=Answers both month/age (0), LOC Commands: 0=Performs both tasks (0) , Gaze: Normal (0), Visual Nolan: 0=No visual loss (0), Facial Movement ( Facial Paresis): 1=Minor paralysis (1), Motor Function-Arms Right: 1=Drift (1), Motor Function-Arms Left: 0=No drift (0), Motor Function-Legs Right: 1=Drift (1) , Motor Function-Legs Left: 0=No drift (0), Limb Ataxia: 0=Absent (0), Sensory: 0=Normal:no loss (0), Best Language: 1=Mild to moderat aphasia (1), Dysarthria: 1=Mild to moderate loss (1), Extinction & Inattention: 0=No abnormality (0), Total: 5 Stroke Thrombolytic Exclusion Age 18 or Over: Yes Acute intenal hemorrhage: No History of CVA: No Uncontrolled Coagulation Defec: No Intracranial Hemorrhage: No Severe Hypertension: No (151/74) GI or Bleed: No Subarachnoid Hemorrhage: No Intracranial Neoplasm/Aneurysm: No Oral Anticoagulants: No Surgery or Trauma: No Puncture of Non-Compressible V: No Recent CPR: No Diabetic Hemorrhagic Retinopat: No Organ Biopsy: No Recent Obstetric Delivery: No Glucose: No Significant Hepatic Dysfunctio: No NIH Stoke Scale >22: No Bacterial Endocarditis: No Pericarditis: No Improving Symptoms: No Platelets: No TPA Contraindication: No IV - TPa Received IV - TPa Procedure Performed?: Yes IV - TPa Date: May 17, 2017 IV - TPa Time: 17:45 Progress/Results/Core Measures Results/Orders Lab Results Laboratory Tests Test 05/17/17 17:08 05/17/17 17:10 05/17/17 18:49 Range/Units Glucometer 112 H 70-110 MG/DL White Blood Count 7.0 4.3-11.0 10^3/uL Red Blood Count 4.33 L 4.35-5.85 10^6/uL Hemoglobin 16.2 13.3-17.7 G/DL Hematocrit 45 40-54 % Mean Corpuscular Volume 103 H 80-99 FL Mean Corpuscular Hemoglobin 37 H 25-34 PG Mean Corpuscular Hemoglobin Concent 36 32-36 G/DL Red Cell Distribution Width 12.3 10.0-14.5 % Platelet Count 221 130-400 10^3/uL Mean Platelet Volume 8.4 7.4-10.4 FL Neutrophils (%) (Auto) 64 42-75 % Lymphocytes (%) (Auto) 20 12-44 % Monocytes (%) (Auto) 13 H 0-12 % Eosinophils (%) (Auto) 3 0-10 % Basophils (%) (Auto) 1 0-10 % Neutrophils # (Auto) 4.5 1.8-7.8 X 10^3 Lymphocytes # (Auto) 1.4 1.0-4.0 X 10^3 Monocytes # (Auto) 0.9 0.0-1.0 X 10^3 Eosinophils # (Auto) 0.2 0.0-0.3 10^3/uL Basophils # (Auto) 0.1 0.0-0.1 10^3/uL Prothrombin Time 13.1 12.2-14.7 SEC INR Comment 1.0 0.8-1.4 Activated Partial Thromboplast Time 27 24-35 SEC D-Dimer 1.02 H 0.00-0.49 UG/ML Sodium Level 136 135-145 MMOL/L Potassium Level 4.1 3.6-5.0 MMOL/L Chloride Level 97 L 98-107 MMOL/L Carbon Dioxide Level 20 L 21-32 MMOL/L Anion Gap 19 H 5-14 MMOL/L Blood Urea Nitrogen 13 7-18 MG/DL Creatinine 0.93 0.60-1.30 MG/DL Estimat Glomerular Filtration Rate > 60 BUN/Creatinine Ratio 14 Glucose Level 124 H 70-105 MG/DL Calcium Level 9.3 8.5-10.1 MG/DL Total Bilirubin 0.4 0.1-1.0 MG/DL Aspartate Amino Transf (AST/SGOT) 35 H 5-34 U/L Alanine Aminotransferase (ALT/SGPT) 24 0-55 U/L Alkaline Phosphatase 58 40-136 U/L Troponin I < 0.30 <0.30 NG/ML Total Protein 7.9 6.4-8.2 GM/DL Albumin 4.5 3.2-4.5 GM/DL Urine Color YELLOW Urine Clarity CLEAR Urine pH 7 5-9 Urine Specific [place] 1.010 L 1.016-1.022 Urine Protein 3+ H NEGATIVE Urine Glucose (UA) NEGATIVE NEGATIVE Urine Ketones 3+ H NEGATIVE Urine Nitrite NEGATIVE NEGATIVE Urine Bilirubin NEGATIVE NEGATIVE Urine Urobilinogen NORMAL NORMAL MG/DL Urine Leukocyte Esterase NEGATIVE NEGATIVE Urine RBC (Auto) 5+ H NEGATIVE Urine RBC 10-25 H /HPF Urine WBC NONE /HPF Urine Squamous Epithelial Cells NONE /HPF Urine Crystals PRESENT H /LPF Urine Amorphous Sediment RARE YAZ URATES H /LPF Urine Bacteria TRACE /HPF Urine Casts PRESENT /LPF Urine Hyaline Casts RARE /LPF Urine Granular Casts RARE /LPF Urine Mucus NEGATIVE /LPF Urine Culture Indicated NO My Orders Orders - ANABEL WHALEY Ct Head Wo-R/O Stroke (05/17/17 17:06) Cbc With Automated Diff (05/17/17 17:12) Protime With Inr (05/17/17 17:12) Partial Thromboplastin Time (05/17/17 17:12) Comprehensive Metabolic Panel (05/17/17 17:12) Fibrin Degradation Products (05/17/17 17:12) Troponin I (05/17/17 17:12) Ua Culture If Indicated (05/17/17 17:12) Chest 1 View, Ap/Pa Only (05/17/17 17:12) Catheter(Urinary) Insert & Ass 03,15 (05/17/17 17:12) Ekg Tracing (05/17/17 17:12) Nothing By Mouth (05/18/17 Breakfast) Accucheck Stat ONCE (05/17/17 17:12) Saline Lock/Iv-Start (05/17/17 17:12) Saline Lock/Iv-Start (05/17/17 17:12) Vital Signs - Stroke Q15M (05/17/17 17:12) O2 (05/17/17 17:12) Intake & Output 06,14,22 (05/17/17 17:12) Monitor-Rhythm Ecg Trace Only (05/17/17 17:12) Dysphagia Screening Tool (05/17/17 17:12) Post Thrombolytic Adminstratio (05/17/17 17:12) Alteplase (Activase) (Activase Injection (05/17/17 17:25) Ct Angio Head/Neck (05/17/17 19:08) Iohexol Injection (Omnipaque 350 Mg/Ml 1 (05/17/17 19:15) Ns (Ivpb) (Sodium Chloride 0.9% Ivpb Bag (05/17/17 19:15) Medications Given in ED Current Medications Medications Dose Ordered Sig/Sergio Route Start Time Stop Time Status Last Admin Dose Admin Alteplase, Recombinant 100 mg STK-MED ONCE IV 05/17/17 17:25 05/17/17 17:27 DC 05/17/17 17:45 66.2 MG Iohexol 75 ml ONCE ONCE IV 05/17/17 19:15 05/17/17 19:16 UNV 05/17/17 19:22 75 ML Sodium Chloride 100 ml ONCE ONCE IV 05/17/17 19:15 05/17/17 19:16 UNV 05/17/17 19:23 100 ML Vital Signs/I&O Vital Sign - Last 12Hours 05/17/17 05/17/17 17:05 18:47 Temp 98.1 Pulse 70 Resp 20 B/P (MAP) 149/89 (109) Pulse Ox 94 98 O2 Delivery Room Air Progress Note : Time: 18:28 Progress Note About 34-35 minutes after initiation of TPA the patient had total resolution of symptoms except for his voices still little gravelly. A complete neuro exam was completed demonstrating no drift, cranial nerve impairment, sensory, motor or deep tendon reflex impairment. I discussed this with the neurologist and he feels that the patient is no longer a candidate for thrombolytic to me and recommends a complete CVA workup inpatient. We have discussed this with the patient and the family and they're willing to do that here in [place] so we will send him to the CT [facility] head and neck. ECG Initial ECG Impression Date: May 17, 2017 Initial ECG Impression Time: 17:06 Initial ECG Rate: 61 Initial ECG Rhythm: Normal Sinus Initial ECG Intervals: DE (264) Initial ECG Impression: Nonspecific Changes (right bundle-branch block), 1st Degree AV Block Initial ECG Comparisson: No Previous ECG Available Comment Right bundle-branch block and first-degree AV block Diagnostic Imaging Diagonstic Imaging: CT Plain Films/CT/US/NM/MRI: head Comments NAME: BEAU MAK [facility] REC#: [id number] PHYSICIAN: ANABEL WHALEY MD CC: DEJUAN GILES; ANABEL WHALEY Page 1 of 1 RADIOLOGY REPORT VIA [facility], [facility] [place], [place] CC: DEJUAN GILES; ANABEL WHALEY Page 1 of 1 RADIOLOGY REPORT NAME: BEAU MAK [facility] REC#: [id number] PT STATUS: REG ER : 1935 PHYSICIAN: ANABEL WHALEY MD ADMIT DATE: 05/17/17/ER Signed Date of Exam: 05/17/17 CT HEAD WO-R/O STROKE INDICATION: Slurred speech. COMPARISON: None. EXAMINATION: CT of the head without contrast. FINDINGS: Age-related cerebral volume loss and chronic small vessel ischemic changes are present. There is no midline shift or mass effect. Atherosclerotic disease is seen involving the carotid siphons and right vertebral artery. Acute dense vessel sign is seen in the left M2 segment within the sylvian fissure. No adjacent cerebral edema is identified. The bony calvarium, visualized paranasal sinuses and mastoids are clear. IMPRESSION: 1. Findings concerning for left M2 middle cerebral artery clot. No adjacent edema or hemorrhage is identified. Patient may be a candidate for IV TPA or endovascular intervention. Please correlate clinically. This entity may be confirmed with CTA of the head and neck. 2. No cerebral edema, midline shift or mass effect. Dictated by: Dictated on workstation # [id number] Dict: 05/17/171717 Trans: 05/17/171729 Interpreted by: DEJUAN GILES Electronically signed by: DEJUAN GILES 05/17/171729 Reviewed: Reviewed by Me Diagonstic Imaging: Xray Plain Films/CT/US/NM/MRI: chest Comments NAME: BEAU MAK [facility] REC#: [id number] PHYSICIAN: ANABEL WHALEY MD CC: DEJUAN GILES; ANABEL WHALEY Page 1 of 1 RADIOLOGY REPORT VIA [facility], [place], [place] CC: DEJUAN GILES; ANABEL WHALEY Page 1 of 1 RADIOLOGY REPORT NAME: BEAU MAK [facility] REC#: [id number] PT STATUS: REG ER : 1935 PHYSICIAN: ANABEL WHALEY MD ADMIT DATE: 05/17/17/ER Signed Date of Exam: 05/17/17 CHEST 1 VIEW, AP/PA ONLY INDICATION: STROKE. Right-sided weakness. COMPARISON: None. EXAMINATION: Single view of the chest was obtained. FINDINGS: Minimal atelectasis in the left base. The right lung is clear. The heart is prominent without pulmonary edema. There is no pneumothorax or effusion. Osseous structures are normal. IMPRESSION: Minimal atelectasis at the left lung base. Dictated by: Dictated on workstation # [id number] Dict: 05/17/171724 Trans: 05/17/171736 Interpreted by: DEJUAN GILES Electronically signed by: DEJUAN GILES 05/17/171736 Reviewed: Reviewed by Me Diagonstic Imaging: CT (angio) Plain Films/CT/US/NM/MRI: head (and neck) Comments [facility] [place], [place] NAME: BEAU MAK [facility] REC#: [id number] PT STATUS: REG ER : 1935 PHYSICIAN: ANABEL WHALEY MD ADMIT DATE: 05/17/17/ER Draft Date of Exam:05/17/17 CT ANGIO HEAD/NECK PROCEDURE: CT angiography of the head and CT angiography of the neck with and without contrast. TECHNIQUE: Contiguous noncontrast images were obtained from the skull base through the vertex. After intravenous contrast administration, helical CT angiography of the neck was performed. Source data was reformatted into multiple MIP projections. Delayed post contrast acquisition was also obtained. INDICATION: STROKE. Right-sided weakness. FINDINGS: Visualized arch anatomy is normal. Atherosclerotic disease is seen in both carotid bulbs. There is a moderate to high-grade stenosis in the right carotid bulb approximately 70-90%. No stenosis is seen on the left. The course and caliber of the bilateral internal carotid or arteries is unremarkable. Atherosclerotic disease is seen in both carotid siphons. Both vertebral arteries are unremarkable. The left vertebral artery ends in normal variant PICA distribution. The basilar artery is unremarkable. Anterior circulation appears intact. What was thought to represent dense vessel sign on the left is no longer seen. No intracranial stenosis or vascular occlusion is identified. There is no abnormal enhancement or mass. Posterior circulation distribution is unremarkable. IMPRESSION: 1. 70-90% stenosis in right carotid bulb. 2. No intracranial vascular occlusion, stenosis, aneurysm or AVM. Dictated on workstation # [id number] Dict: 05/17/171944 Trans: 05/17/171951 [facility] [id number] Interpreted by: DEJUAN GILES Electronically signed by: Reviewed: Reviewed by Me Consults Consults : Consults Notes Dr Suarez: [facility] neurology recommends TPA as well after discussing the case lab imaging and findings. He also thinks the patient be a great candidate for possible thrombectomy said he would recommend a she has accepted to [facility] and to ship the patient as soon as possible. 1999: Discussed the CT [facility] findings and since the carotid stenosis is on the right side and the infarct was on the left middle cerebral artery the carotid stenosis is actionable but does not need to be taken care of inpatient as it is asymptomatic. He recommends an outpatient follow-up with vascular surgery. I have communicated this by phone with Dr. Gonsalves. Departure Communication (Admissions) Time/Spoke to Admitting Phy: 19:00 Communication Discussed the case with Dr. Gonsalves and she would like echocardiogram and MRI of the brain in the morning. She is okay with just aspirin previously on anything and atorvastatin. She is okay with medical telemetry or cardiac stepdown with telemetry. Time/Spoke to Consulting Phy: 19:13 Communication/Consulting Dr Monge: Discussed case lab imaging and findings and he is okay and will see the patient. Impression Impression: Primary Impression: CVA (cerebral vascular accident) Qualified Codes: I63.312 - Cerebral infarction due to thrombosis of left middle cerebral artery Disposition: ADMITTED INPATIENT Condition: Stable Admissions Decision to Admit Reason: Admit from ER (General) Decision to Admit/Date: May 17, 2017 Time/Decision to Admit Time: 19:10 Departure-Patient Inst. Referrals: NO,LOCAL PHYSICIAN (PCP/Family) Primary Care Physician Copy Copies To 1: BLAIRE GONSALVES MD, TITUS J May 17, 2017 17:18
[2017-05-17] MEDS ORDERED: ALTEPLASE 100 MG/VIAL (ACTIVASE) IV ONE (17:25)
[2017-05-17 17:26] LABS: PROTHROMBIN TIME PATIENT 13.1 SEC (12.2-14.7)
--- NOTE | 2017-05-17 17:28 | Diagnostic Imaging Report ---
INDICATION: Slurred speech. COMPARISON: None. EXAMINATION: CT of the head without contrast. FINDINGS: Age-related cerebral volume loss and chronic small vessel ischemic changes are present. There is no midline shift or mass effect. Atherosclerotic disease is seen involving the carotid siphons and right vertebral artery. Acute dense vessel sign is seen in the left M2 segment within the sylvian fissure. No adjacent cerebral edema is identified. The bony calvarium, visualized paranasal sinuses and mastoids are clear. IMPRESSION: 1. Findings concerning for left M2 middle cerebral artery clot. No adjacent edema or hemorrhage is identified. Patient may be a candidate for IV TPA or endovascular intervention. Please correlate clinically. This entity may be confirmed with CTA of the head and neck. 2. No cerebral edema, midline shift or mass effect. Dictated by: Dictated on workstation # [id number]
--- NOTE | 2017-05-17 17:31 | Diagnostic Imaging Report ---
INDICATION: STROKE. Right-sided weakness. COMPARISON: None. EXAMINATION: Single view of the chest was obtained. FINDINGS: Minimal atelectasis in the left base. The right lung is clear. The heart is prominent without pulmonary edema. There is no pneumothorax or effusion. Osseous structures are normal. IMPRESSION: Minimal atelectasis at the left lung base. Dictated by: Dictated on workstation # [id number]
[2017-05-17 17:36] LABS: ALANINE AMINOTRANSFERASE 24 U/L (0-55); ALBUMIN 4.5 GM/DL (3.2-4.5); ANION GAP 19 MMOL/L (5-14); ASPARTATE AMINO TRANSFERASE 35 U/L (5-34); BILIRUBIN,TOTAL 0.4 MG/DL (0.1-1.0); BLOOD UREA NITROGEN 13 MG/DL (7-18); BUN/CREATININE RATIO 14; CALCIUM 9.3 MG/DL (8.5-10.1); CARBON DIOXIDE 20 MMOL/L (21-32); CHLORIDE 97 MMOL/L (98-107); CREATININE SERUM 0.93 MG/DL (0.60-1.30); GFR ESTIMATED > 60; GLUCOSE 124 MG/DL (70-105); POTASSIUM 4.1 MMOL/L (3.6-5.0); SODIUM 136 MMOL/L (135-145); TOTAL PROTEIN 7.9 GM/DL (6.4-8.2)
[2017-05-17 17:42] LABS: TROPONIN I < 0.30 NG/ML (<0.30)
[2017-05-17] MEDS ORDERED: TAMS0.4C2 (18:36)
[2017-05-17] MEDS ORDERED: TRAZ-28 (18:36)
[2017-05-17] MEDS ORDERED: POLY255P (18:36)
[2017-05-17] MEDS ORDERED: LORA1TAB (18:36)
[2017-05-17] MEDS ORDERED: FINA5TAB6 (18:36)
[2017-05-17] MEDS ORDERED: LISI-556 PO (18:37)
[2017-05-17 19:03] LABS: BILIRUBIN,URINE NEGATIVE (NEGATIVE); KETONES,URINE 3+ (NEGATIVE); LEUKOCYTE ESTERASE ,URINE NEGATIVE (NEGATIVE); NITRITE,URINE NEGATIVE (NEGATIVE); PH,URINE 7 (5-9); PROTEIN,URINE 3+ (NEGATIVE); UROBILINOGEN,URINE NORMAL (NORMAL)
[2017-05-17 19:11] LABS: GRANULAR CASTS,URINE RARE /LPF; HYALINE CASTS, URINE RARE /LPF
[2017-05-17] MEDS ORDERED: IOHEXOL 350 MG/ML 100 ML (OMNIPAQUE 350) VIAL IV ONE (19:15)
[2017-05-17] MEDS ORDERED: NS 100 ML (IVPB) BAG IV ONE (19:15)
--- NOTE | 2017-05-17 19:52 | Diagnostic Imaging Report ---
PROCEDURE: CT angiography of the head and CT angiography of the neck with and without contrast. TECHNIQUE: Contiguous noncontrast images were obtained from the skull base through the vertex. After intravenous contrast administration, helical CT angiography of the neck was performed. Source data was reformatted into multiple MIP projections. Delayed post contrast acquisition was also obtained. INDICATION: STROKE. Right-sided weakness. FINDINGS: Visualized arch anatomy is normal. Atherosclerotic disease is seen in both carotid bulbs. There is a moderate to high-grade stenosis in the right carotid bulb approximately 70-90%. No stenosis is seen on the left. The course and caliber of the bilateral internal carotid or arteries is unremarkable. Atherosclerotic disease is seen in both carotid siphons. Both vertebral arteries are unremarkable. The left vertebral artery ends in normal variant PICA distribution. The basilar artery is unremarkable. Anterior circulation appears intact. What was thought to represent dense vessel sign on the left is no longer seen. No intracranial stenosis or vascular occlusion is identified. There is no abnormal enhancement or mass. Posterior circulation distribution is unremarkable. IMPRESSION: 1. 70-90% stenosis in right carotid bulb. 2. No intracranial vascular occlusion, stenosis, aneurysm or AVM. Dictated by: Dictated on workstation # [id number]
--- OUTSIDE RECORDS SUMMARY | 2017-05-17 20:36 | XMS REPORT | Continuity of Care Document ---
Author Author [facility] - [facility] Address Unknown Phone Unavailable Allergies Active Description Code Type Severity Reaction Onset Reported/Identified Relationship to Patient Clinical Status Yes No Known Drug Allerg N/A N/A Yes NKA Miscellaneous Allergy N/ A N/A 01/05/2009 Yes No Known Drug Allergy 153 Miscellaneous Allergy N/A N/A 07/08/2014 Medications There is no data. 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 08/25/2013 WM IRVIN 4414 ABDOM AORTIC ANEURYSM 10/25/2013 EARL CHICAS 7295 PAIN IN LIMB 10/27/2013 EARL CHICAS 7295 PAIN IN LIMB 11/01/2013 EARL CHICAS 86904 PAINFUL RESPIRATION 11/04/2013 EARL CHICAS 45442 PAINFUL RESPIRATION 03/23/2014 TAMIKA YOUNG 9190 ABRASION NEC 05/13/2014 ASMITA DAVIES ( A 7862 COUGH 08/30/2014 EARL CHICAS 21913 ROTATOR CUFF SYND NOS 09/05/2014 WM IRVIN 4414 ABDOM AORTIC ANEURYSM 09/26/2014 EARL CHICAS 7802 SYNCOPE AND COLLAPSE 09/29/2014 EARL CHICAS 7802 SYNCOPE AND COLLAPSE 10/02/2014 UZIEL TIRADO 59062 HEAD INJURY NOS 01/06/2015 KEKE TIAN 17368 OPEN WOUND OF FOREARM 01/16/2015 PEDRO VASQUEZ V5832 ATTN REMOVAL OF SUTURES 03/15/2015 PEDRO VASQUEZ [id number] LACERATION WITHOUT FOREIGN BODY OF LEFT EYELID AND PERIOCULAR AREA, INITIAL ENCOUNTER 03/15/2015 PEDRO VASQUEZ [id number] LACERATION WITHOUT FOREIGN BODY OF OTHER PART OF HEAD, INITIAL ENCOUNTER 03/15/2015 PEDRO VASQUEZ [id number] FALL ON SAME LEVEL, UNSPECIFIED, INITIAL ENCOUNTER 03/15/2015 PEDRO VASQUEZ S [id number] STRIKING AGAINST OR STRUCK BY OTHER OBJECTS, INITIAL ENCOUNTER 03/15/2015 PEDRO VASQUEZ S M19604 UNSPECIFIED PLACE IN SINGLE-FAMILY (PRIVATE) HOUSE THE [...] STATUS 10/23/2015 MAGDALENA GARSIA S Z79.899 OTHER PENITENTIARY (CURRENT) DRUG THERAPY 11/19/2015 EARL CHICAS P [...] There is no data. <section xmlns="urn:hl7-org:v3" xmlns:xsi="http:// www.[employer].org/2001/XMLSchema-instance"> <templateId root= "2.16.840.1.440727.10.20.22.2.3" /> <templateId root= "2.16.840.1.472802.10.20.22.2.3.1" /> <code codeSystemName="LOINC" codeSystem= "2.16.840.1.284920.6.1" code="13498-7" displayName="Results" /> <title>Results< /title> <text> <table> <thead> [...] <td>9.0 </td> <td>6.0- 20.0</td> </tr> <tr> <th colspan="10">[facility] - 05/05/15 15: 15</th> </tr> <tr> [...] <td>1+ </td> <td /> </tr> <tr> <th colspan="10">[facility] - 08:35</th> </tr> <tr> <td>CREATININE</td> <td>1.2 mg/dl</td> [...] </text> <entry> <organizer moodCode="EVN" classCode="BATTERY"> <templateId root= "216.840.1.743974.10..4.1" /> <id nullFlavor="NA" /> <code codeSystem="local" code="CREAT" displayName="CREATININE" /> <statusCode code="completed" /> <component> <observation moodCode="EVN" classCode="OBS"> <templateId root="2.16.840.1.693839.10.20.22.4.2" /> <id nullFlavor="NA" /> <code codeSystem="local" code="CREAT" displayName="CREATININE" /> <statusCode code="completed" /> < effectiveTime value="[id number]" /> <value unit="mg/dl" xsi:type="PQ " value="0.8" /> <referenceRange> <observationRange> <text>0.6-1.3</text> </observationRange> </ referenceRange> </observation> </component> </organizer> </entry > <entry> <organizer moodCode="EVN" classCode="BATTERY"> <templateId root="16.840.1.542053.10..22.4.1" /> <id nullFlavor="NA" /> <code codeSystem="local" code="LIPID" displayName="LIPID PANEL" /> <statusCode code="completed" /> <component> <observation moodCode="EVN" classCode="OBS"> <templateId root="16.840.1.857636.10...4.2" /> <id nullFlavor="NA" /> <code codeSystem="local" code="TRIG" displayName="TRIGLYCERIDES" /> <statusCode code="completed" /> <effectiveTime value="098066160022" /> <value unit="mg/dl" xsi:type= "PQ" value="57" /> <referenceRange> <observationRange> <text>0-150</text> </observationRange> </ referenceRange> </observation> </component> <component> <observation moodCode="EVN" classCode="OBS"> <templateId root= "16.840.1.852097.10..22.4.2" /> <id nullFlavor="NA" /> < code codeSystem="local" code="CHOL" displayName="CHOLESTEROL" /> < statusCode code="completed" /> <effectiveTime value="573785804489" /> <value unit="mg/dl" xsi:type="PQ" value="154" /> < referenceRange> <observationRange> <text>0-200</text> </observationRange> </referenceRange> </observation> </component> <component> <observation moodCode="EVN" classCode= "OBS"> <templateId root="16.840.1.364969.10...4.2" /> < id nullFlavor="NA" /> <code codeSystem="local" code="HDL" displayName= "HDL CHOLESTEROL" /> <statusCode code="completed" /> < effectiveTime value="702711607725" /> <value unit="mg/dl" xsi:type="PQ " value="62" /> <referenceRange> <observationRange> <text>40-</text> </observationRange> </referenceRange > </observation> </component> <component> <observation moodCode="EVN" classCode="OBS"> <templateId root= "07.10.840.1.659877.10...4.2" /> <id nullFlavor="NA" /> < code codeSystem="local" code="LDL" displayName="LDL" /> <statusCode code="completed" /> <effectiveTime value="819937935240" /> < value unit="mg/dl" xsi:type="PQ" value="81" /> <referenceRange> <observationRange> <text>0-130</text> </ observationRange> </referenceRange> </observation> </ component> </organizer> </entry> <entry> <organizer moodCode="EVN" classCode="BATTERY"> <templateId root="07.10.840.1.096923.10..22.4.1" /> <id nullFlavor="NA" /> <code codeSystem="local" code="GLU" displayName ="GLUCOSE" /> <statusCode code="completed" /> <component> < observation moodCode="EVN" classCode="OBS"> <templateId root= "2.16.840.1.789372.10..22.4.2" /> <id nullFlavor="NA" /> < code codeSystem="local" code="GLU" displayName="GLUCOSE" /> < statusCode code="completed" /> <effectiveTime value="729090976853" /> <value unit="mg/dl" xsi:type="PQ" value="100" /> < referenceRange> <observationRange> <text>70-110</text> </observationRange> </referenceRange> </observation> </component> </organizer> </entry> <entry> <organizer moodCode= "EVN" classCode="BATTERY"> <templateId root="2.16.840.1.305858.10..22.4.1 " /> <id nullFlavor="NA" /> <code codeSystem="local" code="FLU" displayName="INFLUENZA" /> <statusCode code="completed" /> <component > <observation moodCode="EVN" classCode="OBS"> <templateId root= "2.16.840.1.715082.10..22.4.2" /> <id nullFlavor="NA" /> < code codeSystem="local" code="SR" displayName="Serology" /> < statusCode code="completed" /> <effectiveTime value="775234105022" /> <value xsi:type="ST" value="<pre><b>INFLUENZA</b> POSITIVE A</pre>" /> <referenceRange> <observationRange> <text /> </observationRange> </referenceRange> </observation> </component> </organizer> </entry> <entry> <organizer moodCode= "EVN" classCode="BATTERY"> <templateId root="2.16.840.1.604876.10..22.4.1 " /> <id nullFlavor="NA" /> <code codeSystem="local" code="BUN" displayName="BUN" /> <statusCode code="completed" /> <component> <observation moodCode="EVN" classCode="OBS"> <templateId root= "07.10.840.1.909444.03.13.22.4.2" /> <id nullFlavor="NA" /> < code codeSystem="local" code="BUN" displayName="BUN" /> <statusCode code="completed" /> <effectiveTime value="" /> < value unit="mg/dl" xsi:type="PQ" value="8" /> <referenceRange> <observationRange> <text>7-18</text> </ observationRange> </referenceRange> </observation> </ component> </organizer> </entry> <entry> <organizer moodCode="EVN" classCode="BATTERY"> <templateId root="07.10.840.1.383084.03.13.22.4.1" /> <id nullFlavor="NA" /> <code codeSystem="local" code="CREAT" displayName="CREATININE" /> <statusCode code="completed" /> <component > <observation moodCode="EVN" classCode="OBS"> <templateId root= "216.840.1.462551.10..4.2" /> <id nullFlavor="NA" /> < code codeSystem="local" code="CREAT" displayName="CREATININE" /> < statusCode code="completed" /> <effectiveTime value="614891120359" /> <value unit="mg/dl" xsi:type="PQ" value="0.9" /> < referenceRange> <observationRange> <text>0.6-1.3</text> </observationRange> </referenceRange> </observation > </component> </organizer> </entry> <entry> <organizer moodCode= "EVN" classCode="BATTERY"> <templateId root="2.16.840.1.583438.10..22.4.1 " /> <id nullFlavor="NA" /> <code codeSystem="local" code="CMP" displayName="COMPREHENSIVE METABOL" /> <statusCode code="completed" /> <component> <observation moodCode="EVN" classCode="OBS"> < templateId root="2.16.840.1.784800.10..4.2" /> <id nullFlavor="NA " /> <code codeSystem="local" code="CREAT" displayName="CREATININE" /> <statusCode code="completed" /> <effectiveTime value= "" /> <value unit="mg/dl" xsi:type="PQ" value="1.0" /> <referenceRange> <observationRange> <text>0.6-1.3< /text> </observationRange> </referenceRange> </ observation> </component> <component> <observation moodCode= "EVN" classCode="OBS"> <templateId root="216.840.1.486239.10..4.2 " /> <id nullFlavor="NA" /> <code codeSystem="local" code="NA " displayName="SODIUM" /> <statusCode code="completed" /> < effectiveTime value="" /> <value unit="mmol/L" xsi:type="PQ " value="130" /> <interpretationCode codeSystem="local" code="L" /> <referenceRange> <observationRange> <text>136-145 </text> </observationRange> </referenceRange> </ observation> </component> <component> <observation moodCode= "EVN" classCode="OBS"> <templateId root="216.840.1.995789.10..4.2 " /> <id nullFlavor="NA" /> <code codeSystem="local" code= "TBIL" displayName="TOTAL BILIRUBIN" /> <statusCode code="completed" / > <effectiveTime value="" /> <value unit="mg/dl" xsi:type="PQ" value="0.5" /> <referenceRange> < observationRange> <text>0.0-1.0</text> </ observationRange> </referenceRange> </observation> </ component> <component> <observation moodCode="EVN" classCode="OBS"> <templateId root="07.10.840.1.846612.03.13.22.4.2" /> <id nullFlavor="NA" /> <code codeSystem="local" code="TP" displayName= "TOTAL PROTEIN" /> <statusCode code="completed" /> < effectiveTime value="" /> <value unit="g/dl" xsi:type="PQ" value="6.9" /> <referenceRange> <observationRange> <text>6.4-8.2</text> </observationRange> </ referenceRange> </observation> </component> <component> <observation moodCode="EVN" classCode="OBS"> <templateId root= "16.840.1.662026.10..4.2" /> <id nullFlavor="NA" /> < code codeSystem="local" code="ALB" displayName="ALBUMIN" /> < statusCode code="completed" /> <effectiveTime value="" /> <value unit="g/dl" xsi:type="PQ" value="3.8" /> < referenceRange> <observationRange> <text>3.4-5.0</text> </observationRange> </referenceRange> </observation > </component> <component> <observation moodCode="EVN" classCode="OBS"> <templateId root="07.10.840.1.241108.10..4.2" /> <id nullFlavor="NA" /> <code codeSystem="local" code="ALKP" displayName="ALK. PHOSPHATASE" /> <statusCode code="completed" /> <effectiveTime value="" /> <value unit="U/L" xsi:type= "PQ" value="59" /> <referenceRange> <observationRange> <text>50-136</text> </observationRange> </ referenceRange> </observation> </component> <component> <observation moodCode="EVN" classCode="OBS"> <templateId root= "840.1.333283.03.13.22.4.2" /> <id nullFlavor="NA" /> < code codeSystem="local" code="BUN" displayName="BUN" /> <statusCode code="completed" /> <effectiveTime value="" /> < value unit="mg/dl" xsi:type="PQ" value="9" /> <referenceRange> <observationRange> <text>7-18</text> </ observationRange> </referenceRange> </observation> </ component> <component> <observation moodCode="EVN" classCode="OBS"> <templateId root="840.1.544957..22.4.2" /> <id nullFlavor="NA" /> <code codeSystem="local" code="CA" displayName= "CALCIUM" /> <statusCode code="completed" /> <effectiveTime value="338402283495" /> <value unit="mg/dl" xsi:type="PQ" value="8.7" / > <referenceRange> <observationRange> <text>8.5 -10.1</text> </observationRange> </referenceRange> </ observation> </component> <component> <observation moodCode= "EVN" classCode="OBS"> <templateId root="216.840.1.619119.03.13.22.4.2 " /> <id nullFlavor="NA" /> <code codeSystem="local" code="CL " displayName="CHLORIDE" /> <statusCode code="completed" /> < effectiveTime value="470955565694" /> <value unit="mmol/L" xsi:type="PQ " value="94" /> <interpretationCode codeSystem="local" code="L" /> <referenceRange> <observationRange> <text>98-107</ text> </observationRange> </referenceRange> </ observation> </component> <component> <observation moodCode= "EVN" classCode="OBS"> <templateId root="07.10.840.1.309742.03.13.22.4.2 " /> <id nullFlavor="NA" /> <code codeSystem="local" code="CO2 " displayName="CO2" /> <statusCode code="completed" /> < effectiveTime value="171946672567" /> <value unit="mmol/L" xsi:type="PQ " value="27.0" /> <referenceRange> <observationRange> <text>21.0-32.0</text> </observationRange> </ referenceRange> </observation> </component> <component> <observation moodCode="EVN" classCode="OBS"> <templateId root= "2.840.1.420516.03.13.22.4.2" /> <id nullFlavor="NA" /> < code codeSystem="local" code="GLU" displayName="GLUCOSE" /> < statusCode code="completed" /> <effectiveTime value="" /> <value unit="mg/dl" xsi:type="PQ" value="93" /> < referenceRange> <observationRange> <text>70-110</text> </observationRange> </referenceRange> </observation> </component> <component> <observation moodCode="EVN" classCode ="OBS"> <templateId root="2.16.840.1.084470.10..22.4.2" /> < id nullFlavor="NA" /> <code codeSystem="local" code="K" displayName= "POTASSIUM" /> <statusCode code="completed" /> <effectiveTime value="" /> <value unit="mmol/L" xsi:type="PQ" value="4.5" /> <referenceRange> <observationRange> <text> 3.5-5.1</text> </observationRange> </referenceRange> </observation> </component> <component> <observation moodCode= "EVN" classCode="OBS"> <templateId root="2.16.840.1.591456.10..22.4.2 " /> <id nullFlavor="NA" /> <code codeSystem="local" code="AST " displayName="AST" /> <statusCode code="completed" /> < effectiveTime value="" /> <value unit="U/L" xsi:type="PQ" value="30" /> <referenceRange> <observationRange> <text>15-37</text> </observationRange> </referenceRange > </observation> </component> <component> <observation moodCode="EVN" classCode="OBS"> <templateId root= "16.840.1.334871.10..22.4.2" /> <id nullFlavor="NA" /> < code codeSystem="local" code="ALT" displayName="ALT" /> <statusCode code="completed" /> <effectiveTime value="" /> < value unit="U/L" xsi:type="PQ" value="40" /> <referenceRange> <observationRange> <text>12-78</text> </ observationRange> </referenceRange> </observation> </ component> <component> <observation moodCode="EVN" classCode="OBS"> <templateId root="07.10.840.1.496253.03.13.22.4.2" /> <id nullFlavor="NA" /> <code codeSystem="local" code="AGAP" displayName= "AGAP" /> <statusCode code="completed" /> <effectiveTime value ="" /> <value unit="" xsi:type="PQ" value="13.5" /> <referenceRange> <observationRange> <text>6.0-16.0</ text> </observationRange> </referenceRange> </ observation> </component> <component> <observation moodCode= "EVN" classCode="OBS"> <templateId root="07.10.840.1.897409..22.4.2 " /> <id nullFlavor="NA" /> <code codeSystem="local" code="BN/ CR" displayName="BN/CR" /> <statusCode code="completed" /> < effectiveTime value="" /> <value unit="" xsi:type="PQ" value="9.0" /> <referenceRange> <observationRange> <text>6.0-20.0</text> </observationRange> </ referenceRange> </observation> </component> </organizer> </entry > <entry> <organizer moodCode="EVN" classCode="BATTERY"> <templateId root="07.10.840.1.950180.10..4.1" /> <id nullFlavor="NA" /> <code codeSystem="local" code="TSH" displayName="HTSH" /> <statusCode code= "completed" /> <component> <observation moodCode="EVN" classCode= "OBS"> <templateId root="840.1.202356.03.13.22.4.2" /> < id nullFlavor="NA" /> <code codeSystem="local" code="TSH" displayName= "HTSH" /> <statusCode code="completed" /> <effectiveTime value ="597944005702" /> <value unit="uiU/ml" xsi:type="PQ" value="1.31" /> <referenceRange> <observationRange> <text>0.34- 4.82</text> </observationRange> </referenceRange> </ observation> </component> </organizer> </entry> <entry> <organizer moodCode="EVN" classCode="BATTERY"> <templateId root= "840.1.327698.03.13.22.4.1" /> <id nullFlavor="NA" /> <code codeSystem="local" code="CBC AUTO" displayName="CBC/ AUTO DIFF" /> < statusCode code="completed" /> <component> <observation moodCode= "EVN" classCode="OBS"> <templateId root="07.10.840.1.576971.10..4.2 " /> <id nullFlavor="NA" /> <code codeSystem="local" code="WBC " displayName="WHITE BLOOD COUNT" /> <statusCode code="completed" /> <effectiveTime value="447210996656" /> <value unit="10" xsi: type="PQ" value="5.13" /> <referenceRange> <observationRange > <text>4.60-10.20</text> </observationRange> < /referenceRange> </observation> </component> <component> <observation moodCode="EVN" classCode="OBS"> <templateId root= "2.16.840.1.503150.10.20.22.4.2" /> <id nullFlavor="NA" /> < code codeSystem="local" code="HCT" displayName="HEMATOCRIT" /> < statusCode code="completed" /> <effectiveTime value="797672766629" /> <value unit="%" xsi:type="PQ" value="37.9" /> < interpretationCode codeSystem="local" code="L" /> <referenceRange> <observationRange> <text>42.0-52.0</text> </ observationRange> </referenceRange> </observation> </ component> <component> <observation moodCode="EVN" classCode="OBS"> <templateId root="2.16.840.1.549014.10.20.22.4.2" /> <id nullFlavor="NA" /> <code codeSystem="local" code="HGB" displayName= "HEMOGLOBIN" /> <statusCode code="completed" /> < effectiveTime value="700156869717" /> <value unit="g/dl" xsi:type="PQ" value="13.6" /> <interpretationCode codeSystem="local" code="L" /> <referenceRange> <observationRange> <text>14.0- 18.0</text> </observationRange> </referenceRange> </ observation> </component> <component> <observation moodCode= "EVN" classCode="OBS"> <templateId root="07.10.840.1.173579.10.20.22.4.2 " /> <id nullFlavor="NA" /> <code codeSystem="local" code= "PLT.COUT" displayName="PLATELET COUNT" /> <statusCode code="completed " /> <effectiveTime value="" /> <value unit="10" xsi:type="PQ" value="246" /> <referenceRange> < observationRange> <text>142-424</text> </ observationRange> </referenceRange> </observation> </ component> <component> <observation moodCode="EVN" classCode="OBS"> <templateId root="07.10.840.1.398670.10..22.4.2" /> <id nullFlavor="NA" /> <code codeSystem="local" code="RBC" displayName="RBC " /> <statusCode code="completed" /> <effectiveTime value= "" /> <value unit="10" xsi:type="PQ" value="3.65" /> <interpretationCode codeSystem="local" code="L" /> <referenceRange > <observationRange> <text>4.70-6.10</text> < /observationRange> </referenceRange> </observation> </ component> <component> <observation moodCode="EVN" classCode="OBS"> <templateId root="840.1.672070.10.20.22.4.2" /> <id nullFlavor="NA" /> <code codeSystem="local" code="MCV" displayName="MCV " /> <statusCode code="completed" /> <effectiveTime value= "" /> <value unit="fl" xsi:type="PQ" value="103.8" /> <interpretationCode codeSystem="local" code="H" /> <referenceRange > <observationRange> <text>80.0-100.0</text> </observationRange> </referenceRange> </observation> </ component> <component> <observation moodCode="EVN" classCode="OBS"> <templateId root="2.16.840.1.784038.10..22.4.2" /> <id nullFlavor="NA" /> <code codeSystem="local" code="MCH" displayName="MCH " /> <statusCode code="completed" /> <effectiveTime value= "" /> <value unit="pg" xsi:type="PQ" value="37.3" /> <interpretationCode codeSystem="local" code="H" /> <referenceRange > <observationRange> <text>26.0-34.0</text> < /observationRange> </referenceRange> </observation> </ component> <component> <observation moodCode="EVN" classCode="OBS"> <templateId root="07.10.840.1.330402.10..4.2" /> <id nullFlavor="NA" /> <code codeSystem="local" code="MCHC" displayName= "MCHC" /> <statusCode code="completed" /> <effectiveTime value ="" /> <value unit="g/dl" xsi:type="PQ" value="35.9" /> <referenceRange> <observationRange> <text>29.0- 37.0</text> </observationRange> </referenceRange> </ observation> </component> <component> <observation moodCode= "EVN" classCode="OBS"> <templateId root="216.840.1.080429.10.20.22.4.2 " /> <id nullFlavor="NA" /> <code codeSystem="local" code="RDW " displayName="RDW" /> <statusCode code="completed" /> < effectiveTime value="" /> <value unit="%" xsi:type="PQ " value="12.0" /> <referenceRange> <observationRange> <text>11.5-14.5</text> </observationRange> </ referenceRange> </observation> </component> <component> <observation moodCode="EVN" classCode="OBS"> <templateId root= "2.16.840.1.398729.10.20.22.4.2" /> <id nullFlavor="NA" /> < code codeSystem="local" code="MPV" displayName="MPV" /> <statusCode code="completed" /> <effectiveTime value="" /> < value unit="fl" xsi:type="PQ" value="8.10" /> <referenceRange> <observationRange> <text /> </observationRange> </referenceRange> </observation> </component> <component > <observation moodCode="EVN" classCode="OBS"> <templateId root= "2.16.840.1.292645.10.20.22.4.2" /> <id nullFlavor="NA" /> < code codeSystem="local" code="GRAN%" displayName="GRAN%" /> < statusCode code="completed" /> <effectiveTime value="" /> <value unit="%" xsi:type="PQ" value="57.9" /> < referenceRange> <observationRange> <text>37.0-80.0</text > </observationRange> </referenceRange> </observation > </component> <component> <observation moodCode="EVN" classCode="OBS"> <templateId root="2.16.840.1.029042.10.20.22.4.2" /> <id nullFlavor="NA" /> <code codeSystem="local" code="LYMPH&# 37;" displayName="LYMPH%" /> <statusCode code="completed" /> <effectiveTime value="" /> <value unit="%" xsi:type ="PQ" value="18.50" /> <referenceRange> <observationRange> <text>10.00-50.00</text> </observationRange> </ referenceRange> </observation> </component> <component> <observation moodCode="EVN" classCode="OBS"> <templateId root= "216.840.1.160500.10..4.2" /> <id nullFlavor="NA" /> < code codeSystem="local" code="MONO%" displayName="MONO%" /> < statusCode code="completed" /> <effectiveTime value="" /> <value unit="%" xsi:type="PQ" value="19.70" /> < interpretationCode codeSystem="local" code="H" /> <referenceRange> <observationRange> <text>0.00-12.00</text> </ observationRange> </referenceRange> </observation> </ component> <component> <observation moodCode="EVN" classCode="OBS"> <templateId root="216.840.1.810877.10.20.22.4.2" /> <id nullFlavor="NA" /> <code codeSystem="local" code="EOS%" displayName ="EOS%" /> <statusCode code="completed" /> <effectiveTime value="" /> <value unit="%" xsi:type="PQ" value="2.90" /> <referenceRange> <observationRange> <text> 0.00-7.00</text> </observationRange> </referenceRange> </observation> </component> <component> <observation moodCode="EVN" classCode="OBS"> <templateId root= "216.840.1.131865.10.2022.4.2" /> <id nullFlavor="NA" /> < code codeSystem="local" code="BASO%" displayName="BASO%" /> < statusCode code="completed" /> <effectiveTime value="832909131186" /> <value unit="%" xsi:type="PQ" value="1.00" /> < referenceRange> <observationRange> <text>0.00-2.50</text > </observationRange> </referenceRange> </observation > </component> <component> <observation moodCode="EVN" classCode="OBS"> <templateId root="07.10.840.1.013951.10.4.2" /> <id nullFlavor="NA" /> <code codeSystem="local" code="GRAN#" displayName="GRAN#" /> <statusCode code="completed" /> < effectiveTime value="903187748869" /> <value unit="10" xsi:type="PQ" value="2.97" /> <referenceRange> <observationRange> <text>2.00-6.90</text> </observationRange> </ referenceRange> </observation> </component> <component> <observation moodCode="EVN" classCode="OBS"> <templateId root= "[id number]" /> <id nullFlavor="NA" /> < code codeSystem="local" code="LYMPH#" displayName="LYMPH#" /> < statusCode code="completed" /> <effectiveTime value="" /> <value unit="10" xsi:type="PQ" value="0.95" /> <referenceRange > <observationRange> <text>0.60-3.40</text> < /observationRange> </referenceRange> </observation> </ component> <component> <observation moodCode="EVN" classCode="OBS"> <templateId root="[id number]..[id number]" /> <id nullFlavor="NA" /> <code codeSystem="local" code="MONO#" displayName= "MONO#" /> <statusCode code="completed" /> <effectiveTime value="" /> <value unit="10" xsi:type="PQ" value="1.01" /> <interpretationCode codeSystem="local" code="H" /> < referenceRange> <observationRange> <text>0.00-0.90</text > </observationRange> </referenceRange> </observation > </component> <component> <observation moodCode="EVN" classCode="OBS"> <templateId root="16.840.1.371227.10..22.4.2" /> <id nullFlavor="NA" /> <code codeSystem="local" code="EOS#" displayName="EOS#" /> <statusCode code="completed" /> < effectiveTime value="" /> <value unit="10" xsi:type="PQ" value="0.15" /> <referenceRange> <observationRange> <text>0.00-0.50</text> </observationRange> </ referenceRange> </observation> </component> <component> <observation moodCode="EVN" classCode="OBS"> <templateId root= "16.840.1.495746.10..22.4.2" /> <id nullFlavor="NA" /> < code codeSystem="local" code="BASO#" displayName="BASO#" /> < statusCode code="completed" /> <effectiveTime value="" /> <value unit="10" xsi:type="PQ" value="0.05" /> <referenceRange > <observationRange> <text>0.00-0.20</text> < /observationRange> </referenceRange> </observation> </ component> <component> <observation moodCode="EVN" classCode="OBS"> <templateId root="07.10.840.1.090559.10..4.2" /> <id nullFlavor="NA" /> <code codeSystem="local" code="MANDIFF" displayName= "MAN DIFF" /> <statusCode code="completed" /> <effectiveTime value="" /> <value unit="" xsi:type="PQ" value="N" /> <referenceRange> <observationRange> <text> -</text> </observationRange> </referenceRange> </observation> </component> <component> <observation moodCode="EVN" classCode="OBS"> <templateId root= "07.10.840.1.080018.10..22.4.2" /> <id nullFlavor="NA" /> < code codeSystem="local" code="SEGS" displayName="SEGS" /> <statusCode code="completed" /> <effectiveTime value="" /> < value unit="%" xsi:type="PQ" value="64" /> <interpretationCode codeSystem="local" code="H" /> <referenceRange> < observationRange> <text>40-60</text> </observationRange > </referenceRange> </observation> </component> < component> <observation moodCode="EVN" classCode="OBS"> < templateId root="07.10.840.1.226932.10.20..4.2" /> <id nullFlavor="NA " /> <code codeSystem="local" code="BANDS" displayName="BANDS" /> <statusCode code="completed" /> <effectiveTime value=" " /> <value unit="%" xsi:type="PQ" value="0" /> < referenceRange> <observationRange> <text>0-5</text> </observationRange> </referenceRange> </observation> </component> <component> <observation moodCode="EVN" classCode= "OBS"> <templateId root="07.10.840.1.570820.10.4.2" /> < id nullFlavor="NA" /> <code codeSystem="local" code="LYMPHS" displayName="LYMPHS" /> <statusCode code="completed" /> < effectiveTime value="" /> <value unit="%" xsi:type="PQ " value="21" /> <referenceRange> <observationRange> <text>20-40</text> </observationRange> </ referenceRange> </observation> </component> <component> <observation moodCode="EVN" classCode="OBS"> <templateId root= "07.10.840.1.228873.10.20.22.4.2" /> <id nullFlavor="NA" /> < code codeSystem="local" code="VARLYMP" displayName="JUAN A LYMP" /> < statusCode code="completed" /> <effectiveTime value="[id number]" /> <value unit="%" xsi:type="PQ" value="1" /> < interpretationCode codeSystem="local" code="H" /> <referenceRange> <observationRange> <text>0-0</text> </ observationRange> </referenceRange> </observation> </ component> <component> <observation moodCode="EVN" classCode="OBS"> <templateId root="07.10.840.1.523243.10.20.22.4.2" /> <id nullFlavor="NA" /> <code codeSystem="local" code="MONOS" displayName= "MONOS" /> <statusCode code="completed" /> <effectiveTime value="938856808025" /> <value unit="%" xsi:type="PQ" value="13" / > <interpretationCode codeSystem="local" code="H" /> < referenceRange> <observationRange> <text>4-8</text> </observationRange> </referenceRange> </observation> </component> <component> <observation moodCode="EVN" classCode= "OBS"> <templateId root="07.10.840.1.879770.10.20.22.4.2" /> < id nullFlavor="NA" /> <code codeSystem="local" code="EOS" displayName= "EOS" /> <statusCode code="completed" /> <effectiveTime value= "152651612040" /> <value unit="%" xsi:type="PQ" value="1" /> <referenceRange> <observationRange> <text>0-5</text > </observationRange> </referenceRange> </observation > </component> <component> <observation moodCode="EVN" classCode="OBS"> <templateId root="07.10.830.1.999101.22.4.2" /> <id nullFlavor="NA" /> <code codeSystem="local" code="BASOS" displayName="BASOS" /> <statusCode code="completed" /> < effectiveTime value="" /> <value unit="%" xsi:type="PQ " value="0" /> <referenceRange> <observationRange> <text>0-2</text> </observationRange> </referenceRange> </observation> </component> <component> <observation moodCode="EVN" classCode="OBS"> <templateId root= "840.1.984959.03.13.22.4.2" /> <id nullFlavor="NA" /> < code codeSystem="local" code="MACROCYT" displayName="MACROCYT" /> < statusCode code="completed" /> <effectiveTime value="906658631022" /> <value unit="" xsi:type="PQ" value="1+" /> <referenceRange> <observationRange> <text /> </observationRange > </referenceRange> </observation> </component> </ organizer> </entry> <entry> <organizer moodCode="EVN" classCode="BATTERY"> <templateId root="840.1.809440.22.4.1" /> <id nullFlavor= "NA" /> <code codeSystem="local" code="CSECHOAD" displayName= "ECHOCARDIOGRAM COMPLETE" /> <statusCode code="completed" /> < component> <observation moodCode="EVN" classCode="OBS"> < templateId root="07.10.840.1.880983.1022.4.2" /> <id nullFlavor="NA " /> <code codeSystem="local" code="CSECHOAD" displayName="CSECHOAD" / > <statusCode code="completed" /> <effectiveTime value= "521595957025" /> <value unit="" xsi:type="PQ" value="see batch scanned documents" /> <referenceRange> <observationRange> <text /> </observationRange> </referenceRange> </observation> </component> </organizer> </entry> <entry> < organizer moodCode="EVN" classCode="BATTERY"> <templateId root= "216.840.1.765065.10..22.4.1" /> <id nullFlavor="NA" /> <code codeSystem="local" code="BUN" displayName="BUN" /> <statusCode code= "completed" /> <component> <observation moodCode="EVN" classCode= "OBS"> <templateId root="216.840.1.602982.10..22.4.2" /> < id nullFlavor="NA" /> <code codeSystem="local" code="BUN" displayName= "BUN" /> <statusCode code="completed" /> <effectiveTime value= "596443108998" /> <value unit="mg/dl" xsi:type="PQ" value="13" /> <referenceRange> <observationRange> <text>7-18</ text> </observationRange> </referenceRange> </ observation> </component> </organizer> </entry> <entry> <organizer moodCode="EVN" classCode="BATTERY"> <templateId root= "216.840.1.751629.10..22.4.1" /> <id nullFlavor="NA" /> <code codeSystem="local" code="CREAT" displayName="CREATININE" /> <statusCode code="completed" /> <component> <observation moodCode="EVN" classCode="OBS"> <templateId root="16.840.1.096787.10..22.4.2" /> <id nullFlavor="NA" /> <code codeSystem="local" code="CREAT" displayName="CREATININE" /> <statusCode code="completed" /> < effectiveTime value="174073150452" /> <value unit="mg/dl" xsi:type="PQ " value="1.0" /> <referenceRange> <observationRange> <text>0.6-1.3</text> </observationRange> </ referenceRange> </observation> </component> </organizer> </entry > <entry> <organizer moodCode="EVN" classCode="BATTERY"> <templateId root="216.840.1.262359.10..22.4.1" /> <id nullFlavor="NA" /> <code codeSystem="local" code="TROP I" displayName="TROPONIN I" /> <statusCode code="completed" /> <component> <observation moodCode="EVN" classCode="OBS"> <templateId root="216.840.1.596813.10.20.22.4.2" /> <id nullFlavor="NA" /> <code codeSystem="local" code="TROPI" displayName="TROP I" /> <statusCode code="completed" /> < effectiveTime value="404202024453" /> <value unit="ng/ml" xsi:type="PQ " value="<0.03" /> <referenceRange> <observationRange> <text>0.0-0.1</text> </observationRange> </ referenceRange> </observation> </component> </organizer> </entry > <entry> <organizer moodCode="EVN" classCode="BATTERY"> <templateId root="16.840.1.562230.10..22.4.1" /> <id nullFlavor="NA" /> <code codeSystem="local" code="D-DIM QT" displayName="D-DIMER QUANTITATIVE" /> < statusCode code="completed" /> <component> <observation moodCode= "EVN" classCode="OBS"> <templateId root="16.840.1.991832.03.13.22.4.2 " /> <id nullFlavor="NA" /> <code codeSystem="local" code="CH " displayName="Chemistry" /> <statusCode code="completed" /> < effectiveTime value="785192893071" /> <value xsi:type="ST" value="<pre> <b>D-DIMER QUANTITATIVE</b> 3034</pre>" /> <referenceRange> <observationRange> <text /> </observationRange> </referenceRange> </observation> </component> </organizer> </ entry> <entry> <organizer moodCode="EVN" classCode="BATTERY"> < templateId root="07.10.840.1.225888.03.13.22.4.1" /> <id nullFlavor="NA" /> <code codeSystem="local" code="CMP" displayName="COMPREHENSIVE METABOL" / > <statusCode code="completed" /> <component> <observation moodCode="EVN" classCode="OBS"> <templateId root= "16.840.1.679112.10..22.4.2" /> <id nullFlavor="NA" /> < code codeSystem="local" code="CREAT" displayName="CREATININE" /> < statusCode code="completed" /> <effectiveTime value="567146098962" /> <value unit="mg/dl" xsi:type="PQ" value="1.1" /> < referenceRange> <observationRange> <text>0.6-1.3</text> </observationRange> </referenceRange> </observation > </component> <component> <observation moodCode="EVN" classCode="OBS"> <templateId root="07.10.840.1.482532.10.20.22.4.2" /> <id nullFlavor="NA" /> <code codeSystem="local" code="NA" displayName="SODIUM" /> <statusCode code="completed" /> < effectiveTime value="619806783751" /> <value unit="mmol/L" xsi:type="PQ " value="130" /> <interpretationCode codeSystem="local" code="L" /> <referenceRange> <observationRange> <text>136-145 </text> </observationRange> </referenceRange> </ observation> </component> <component> <observation moodCode= "EVN" classCode="OBS"> <templateId root="840.1.882943.10...4.2 " /> <id nullFlavor="NA" /> <code codeSystem="local" code= "TBIL" displayName="TOTAL BILIRUBIN" /> <statusCode code="completed" / > <effectiveTime value="318704697469" /> <value unit="mg/dl" xsi:type="PQ" value="0.3" /> <referenceRange> < observationRange> <text>0.0-1.0</text> </ observationRange> </referenceRange> </observation> </ component> <component> <observation moodCode="EVN" classCode="OBS"> <templateId root="07.10.840.1.621594.10..22.4.2" /> <id nullFlavor="NA" /> <code codeSystem="local" code="TP" displayName= "TOTAL PROTEIN" /> <statusCode code="completed" /> < effectiveTime value="845934186158" /> <value unit="g/dl" xsi:type="PQ" value="6.5" /> <referenceRange> <observationRange> <text>6.4-8.2</text> </observationRange> </ referenceRange> </observation> </component> <component> <observation moodCode="EVN" classCode="OBS"> <templateId root= "216.840.1.747249.03.13.22.4.2" /> <id nullFlavor="NA" /> < code codeSystem="local" code="ALB" displayName="ALBUMIN" /> < statusCode code="completed" /> <effectiveTime value="847858988471" /> <value unit="g/dl" xsi:type="PQ" value="3.6" /> < referenceRange> <observationRange> <text>3.4-5.0</text> </observationRange> </referenceRange> </observation > </component> <component> <observation moodCode="EVN" classCode="OBS"> <templateId root="216.840.1.147910.03.13.22.4.2" /> <id nullFlavor="NA" /> <code codeSystem="local" code="ALKP" displayName="ALK. PHOSPHATASE" /> <statusCode code="completed" /> <effectiveTime value="768870551497" /> <value unit="U/L" xsi:type= "PQ" value="48" /> <interpretationCode codeSystem="local" code="L" /> <referenceRange> <observationRange> <text>50- 136</text> </observationRange> </referenceRange> </ observation> </component> <component> <observation moodCode= "EVN" classCode="OBS"> <templateId root="216.840.1.708403...22.4.2 " /> <id nullFlavor="NA" /> <code codeSystem="local" code="BUN " displayName="BUN" /> <statusCode code="completed" /> < effectiveTime value="" /> <value unit="mg/dl" xsi:type="PQ " value="16" /> <referenceRange> <observationRange> <text>7-18</text> </observationRange> </referenceRange > </observation> </component> <component> <observation moodCode="EVN" classCode="OBS"> <templateId root= "16.840.1.083335.03.13.22.4.2" /> <id nullFlavor="NA" /> < code codeSystem="local" code="CA" displayName="CALCIUM" /> <statusCode code="completed" /> <effectiveTime value="" /> < value unit="mg/dl" xsi:type="PQ" value="8.3" /> <interpretationCode codeSystem="local" code="L" /> <referenceRange> < observationRange> <text>8.5-10.1</text> </ observationRange> </referenceRange> </observation> </ component> <component> <observation moodCode="EVN" classCode="OBS"> <templateId root="16.840.1.894889.22.4.2" /> <id nullFlavor="NA" /> <code codeSystem="local" code="CL" displayName= "CHLORIDE" /> <statusCode code="completed" /> <effectiveTime value="488342733519" /> <value unit="mmol/L" xsi:type="PQ" value="94" / > <interpretationCode codeSystem="local" code="L" /> < referenceRange> <observationRange> <text>98-107</text> </observationRange> </referenceRange> </observation> </component> <component> <observation moodCode="EVN" classCode ="OBS"> <templateId root="216.840.1.385474.10...4.2" /> < id nullFlavor="NA" /> <code codeSystem="local" code="CO2" displayName= "CO2" /> <statusCode code="completed" /> <effectiveTime value= "" /> <value unit="mmol/L" xsi:type="PQ" value="25.7" /> <referenceRange> <observationRange> <text>21.0- 32.0</text> </observationRange> </referenceRange> </ observation> </component> <component> <observation moodCode= "EVN" classCode="OBS"> <templateId root="07.10.840.1.109836.03.13.22.4.2 " /> <id nullFlavor="NA" /> <code codeSystem="local" code="GLU " displayName="GLUCOSE" /> <statusCode code="completed" /> < effectiveTime value="" /> <value unit="mg/dl" xsi:type="PQ " value="92" /> <referenceRange> <observationRange> <text>70-110</text> </observationRange> </ referenceRange> </observation> </component> <component> <observation moodCode="EVN" classCode="OBS"> <templateId root= "07.10.840.1.111421....4.2" /> <id nullFlavor="NA" /> < code codeSystem="local" code="K" displayName="POTASSIUM" /> < statusCode code="completed" /> <effectiveTime value="" /> <value unit="mmol/L" xsi:type="PQ" value="4.6" /> < referenceRange> <observationRange> <text>3.5-5.1</text> </observationRange> </referenceRange> </observation > </component> <component> <observation moodCode="EVN" classCode="OBS"> <templateId root="16.840.1.907839.10...4.2" /> <id nullFlavor="NA" /> <code codeSystem="local" code="AST" displayName="AST" /> <statusCode code="completed" /> < effectiveTime value="511111677804" /> <value unit="U/L" xsi:type="PQ" value="34" /> <referenceRange> <observationRange> <text>15-37</text> </observationRange> </referenceRange > </observation> </component> <component> <observation moodCode="EVN" classCode="OBS"> <templateId root= "840.1.438967.10..4.2" /> <id nullFlavor="NA" /> < code codeSystem="local" code="ALT" displayName="ALT" /> <statusCode code="completed" /> <effectiveTime value="727819669479" /> < value unit="U/L" xsi:type="PQ" value="32" /> <referenceRange> <observationRange> <text>12-78</text> </ observationRange> </referenceRange> </observation> </ component> <component> <observation moodCode="EVN" classCode="OBS"> <templateId root="07.10.840.1.629200.10...4.2" /> <id nullFlavor="NA" /> <code codeSystem="local" code="AGAP" displayName= "AGAP" /> <statusCode code="completed" /> <effectiveTime value ="872038865349" /> <value unit="" xsi:type="PQ" value="14.9" /> <referenceRange> <observationRange> <text>6.0-16.0</ text> </observationRange> </referenceRange> </ observation> </component> <component> <observation moodCode= "EVN" classCode="OBS"> <templateId root="840.1.731596.03.13.22.4.2 " /> <id nullFlavor="NA" /> <code codeSystem="local" code="BN/ CR" displayName="BN/CR" /> <statusCode code="completed" /> < effectiveTime value="" /> <value unit="" xsi:type="PQ" value="14.4" /> <referenceRange> <observationRange> <text>6.0-20.0</text> </observationRange> </ referenceRange> </observation> </component> </organizer> </entry > <entry> <organizer moodCode="EVN" classCode="BATTERY"> <templateId root="840.1.428281...4.1" /> <id nullFlavor="NA" /> <code codeSystem="local" code="TSH" displayName="HTSH" /> <statusCode code= "completed" /> <component> <observation moodCode="EVN" classCode= "OBS"> <templateId root="840.1.157300.03.13.22.4.2" /> < id nullFlavor="NA" /> <code codeSystem="local" code="TSH" displayName= "HTSH" /> <statusCode code="completed" /> <effectiveTime value ="307860451682" /> <value unit="uiU/ml" xsi:type="PQ" value="1.29" /> <referenceRange> <observationRange> <text>0.34- 4.82</text> </observationRange> </referenceRange> </ observation> </component> </organizer> </entry> <entry> <organizer moodCode="EVN" classCode="BATTERY"> <templateId root= "07.10.840.1.431755.10..4.1" /> <id nullFlavor="NA" /> <code codeSystem="local" code="CKMB" displayName="CKMB" /> <statusCode code= "completed" /> <component> <observation moodCode="EVN" classCode= "OBS"> <templateId root="07.10.840.1.521883...4.2" /> < id nullFlavor="NA" /> <code codeSystem="local" code="CKMB" displayName= "CKMB" /> <statusCode code="completed" /> <effectiveTime value ="913814232870" /> <value unit="ng/ml" xsi:type="PQ" value="4.0" /> <referenceRange> <observationRange> <text>0-6.5</ text> </observationRange> </referenceRange> </ observation> </component> </organizer> </entry> <entry> <organizer moodCode="EVN" classCode="BATTERY"> <templateId root= "07.10.840.1.832325.10..4.1" /> <id nullFlavor="NA" /> <code codeSystem="local" code="BNP" displayName="NATRIURETIC PEPTIDE" /> < statusCode code="completed" /> <component> <observation moodCode= "EVN" classCode="OBS"> <templateId root="07.10.840.1.143327.03.13.22.4.2 " /> <id nullFlavor="NA" /> <code codeSystem="local" code="CH " displayName="Chemistry" /> <statusCode code="completed" /> < effectiveTime value="153112110209" /> <value xsi:type="ST" value="<pre> <b>NATRIURETIC PEPTIDE</b> 48</pre>" /> <referenceRange> < observationRange> <text /> </observationRange> </referenceRange> </observation> </component> </organizer> </ entry> <entry> <organizer moodCode="EVN" classCode="BATTERY"> < templateId root="07.10.840.1.263228.03.13.224.1" /> <id nullFlavor="NA" /> <code codeSystem="local" code="CBC AUTO" displayName="CBC/ AUTO DIFF" /> <statusCode code="completed" /> <component> <observation moodCode="EVN" classCode="OBS"> <templateId root= "07.10.840.1.371390.03.13.22.4.2" /> <id nullFlavor="NA" /> < code codeSystem="local" code="WBC" displayName="WHITE BLOOD COUNT" /> < statusCode code="completed" /> <effectiveTime value="183282430682" /> <value unit="10" xsi:type="PQ" value="5.27" /> <referenceRange > <observationRange> <text>4.60-10.20</text> </observationRange> </referenceRange> </observation> </ component> <component> <observation moodCode="EVN" classCode="OBS"> <templateId root="07.10.840.1.302556.03.13.22.4.2" /> <id nullFlavor="NA" /> <code codeSystem="local" code="HCT" displayName= "HEMATOCRIT" /> <statusCode code="completed" /> < effectiveTime value="" /> <value unit="%" xsi:type="PQ " value="35.2" /> <interpretationCode codeSystem="local" code="L" /> <referenceRange> <observationRange> <text>42.0- 52.0</text> </observationRange> </referenceRange> </ observation> </component> <component> <observation moodCode= "EVN" classCode="OBS"> <templateId root="2.16.840.1.892839.10.20.22.4.2 " /> <id nullFlavor="NA" /> <code codeSystem="local" code="HGB " displayName="HEMOGLOBIN" /> <statusCode code="completed" /> <effectiveTime value="" /> <value unit="g/dl" xsi:type="PQ " value="12.8" /> <interpretationCode codeSystem="local" code="L" /> <referenceRange> <observationRange> <text>14.0- 18.0</text> </observationRange> </referenceRange> </ observation> </component> <component> <observation moodCode= "EVN" classCode="OBS"> <templateId root="2.16.840.1.111596.10.20.22.4.2 " /> <id nullFlavor="NA" /> <code codeSystem="local" code= "PLT.COUT" displayName="PLATELET COUNT" /> <statusCode code="completed " /> <effectiveTime value="" /> <value unit="10" xsi:type="PQ" value="215" /> <referenceRange> < observationRange> <text>142-424</text> </ observationRange> </referenceRange> </observation> </ component> <component> <observation moodCode="EVN" classCode="OBS"> <templateId root="07.10.840.1.582246.10..22.4.2" /> <id nullFlavor="NA" /> <code codeSystem="local" code="RBC" displayName="RBC " /> <statusCode code="completed" /> <effectiveTime value= "" /> <value unit="10" xsi:type="PQ" value="3.38" /> <interpretationCode codeSystem="local" code="L" /> <referenceRange > <observationRange> <text>4.70-6.10</text> < /observationRange> </referenceRange> </observation> </ component> <component> <observation moodCode="EVN" classCode="OBS"> <templateId root="07.10.840.1.942883.03.13.22.4.2" /> <id nullFlavor="NA" /> <code codeSystem="local" code="MCV" displayName="MCV " /> <statusCode code="completed" /> <effectiveTime value= "" /> <value unit="fl" xsi:type="PQ" value="104.1" /> <interpretationCode codeSystem="local" code="H" /> <referenceRange > <observationRange> <text>80.0-100.0</text> </observationRange> </referenceRange> </observation> </ component> <component> <observation moodCode="EVN" classCode="OBS"> <templateId root="07.10.840.1.143500.03.13.22.4.2" /> <id nullFlavor="NA" /> <code codeSystem="local" code="MCH" displayName="MCH " /> <statusCode code="completed" /> <effectiveTime value= "" /> <value unit="pg" xsi:type="PQ" value="37.9" /> <interpretationCode codeSystem="local" code="H" /> <referenceRange > <observationRange> <text>26.0-34.0</text> < /observationRange> </referenceRange> </observation> </ component> <component> <observation moodCode="EVN" classCode="OBS"> <templateId root="216.840.1.735975.10.22.4.2" /> <id nullFlavor="NA" /> <code codeSystem="local" code="MCHC" displayName= "MCHC" /> <statusCode code="completed" /> <effectiveTime value ="" /> <value unit="g/dl" xsi:type="PQ" value="36.4" /> <referenceRange> <observationRange> <text>29.0- 37.0</text> </observationRange> </referenceRange> </ observation> </component> <component> <observation moodCode= "EVN" classCode="OBS"> <templateId root="07.10.840.1.190635.03.13.22.4.2 " /> <id nullFlavor="NA" /> <code codeSystem="local" code="RDW " displayName="RDW" /> <statusCode code="completed" /> < effectiveTime value="" /> <value unit="%" xsi:type="PQ " value="12.1" /> <referenceRange> <observationRange> <text>11.5-14.5</text> </observationRange> </ referenceRange> </observation> </component> <component> <observation moodCode="EVN" classCode="OBS"> <templateId root= "216.840.1.327718.10.2022.4.2" /> <id nullFlavor="NA" /> < code codeSystem="local" code="MPV" displayName="MPV" /> <statusCode code="completed" /> <effectiveTime value="" /> < value unit="fl" xsi:type="PQ" value="8.20" /> <referenceRange> <observationRange> <text /> </observationRange> </referenceRange> </observation> </component> <component > <observation moodCode="EVN" classCode="OBS"> <templateId root= "2.16.840.1.648666.10.20.22.4.2" /> <id nullFlavor="NA" /> < code codeSystem="local" code="GRAN%" displayName="GRAN%" /> < statusCode code="completed" /> <effectiveTime value="" /> <value unit="%" xsi:type="PQ" value="52.4" /> < referenceRange> <observationRange> <text>37.0-80.0</text > </observationRange> </referenceRange> </observation > </component> <component> <observation moodCode="EVN" classCode="OBS"> <templateId root="2.16.840.1.570818.10.20.22.4.2" /> <id nullFlavor="NA" /> <code codeSystem="local" code="LYMPH&# 37;" displayName="LYMPH%" /> <statusCode code="completed" /> <effectiveTime value="" /> <value unit="%" xsi:type ="PQ" value="23.00" /> <referenceRange> <observationRange> <text>10.00-50.00</text> </observationRange> </ referenceRange> </observation> </component> <component> <observation moodCode="EVN" classCode="OBS"> <templateId root= "2.16.840.1.243713.10..22.4.2" /> <id nullFlavor="NA" /> < code codeSystem="local" code="MONO%" displayName="MONO%" /> < statusCode code="completed" /> <effectiveTime value="" /> <value unit="%" xsi:type="PQ" value="20.10" /> < interpretationCode codeSystem="local" code="H" /> <referenceRange> <observationRange> <text>0.00-12.00</text> </ observationRange> </referenceRange> </observation> </ component> <component> <observation moodCode="EVN" classCode="OBS"> <templateId root="2.16.840.1.961520.03.13.22.4.2" /> <id nullFlavor="NA" /> <code codeSystem="local" code="EOS%" displayName ="EOS%" /> <statusCode code="completed" /> <effectiveTime value="" /> <value unit="%" xsi:type="PQ" value="3.60" /> <referenceRange> <observationRange> <text> 0.00-7.00</text> </observationRange> </referenceRange> </observation> </component> <component> <observation moodCode="EVN" classCode="OBS"> <templateId root= "2.16.840.1.127663.10.22.4.2" /> <id nullFlavor="NA" /> < code codeSystem="local" code="BASO%" displayName="BASO%" /> < statusCode code="completed" /> <effectiveTime value="" /> <value unit="%" xsi:type="PQ" value="0.90" /> < referenceRange> <observationRange> <text>0.00-2.50</text > </observationRange> </referenceRange> </observation > </component> <component> <observation moodCode="EVN" classCode="OBS"> <templateId root="07.10.840.1.285751.102022.4.2" /> <id nullFlavor="NA" /> <code codeSystem="local" code="GRAN#" displayName="GRAN#" /> <statusCode code="completed" /> < effectiveTime value="" /> <value unit="10" xsi:type="PQ" value="2.76" /> <referenceRange> <observationRange> <text>2.00-6.90</text> </observationRange> </ referenceRange> </observation> </component> <component> <observation moodCode="EVN" classCode="OBS"> <templateId root= "840.1.741243.1022.4.2" /> <id nullFlavor="NA" /> < code codeSystem="local" code="LYMPH#" displayName="LYMPH#" /> < statusCode code="completed" /> <effectiveTime value="" /> <value unit="10" xsi:type="PQ" value="1.21" /> <referenceRange > <observationRange> <text>0.60-3.40</text> < /observationRange> </referenceRange> </observation> </ component> <component> <observation moodCode="EVN" classCode="OBS"> <templateId root="07.10.840.1.390339.10.2022.4.2" /> <id nullFlavor="NA" /> <code codeSystem="local" code="MONO#" displayName= "MONO#" /> <statusCode code="completed" /> <effectiveTime value="" /> <value unit="10" xsi:type="PQ" value="1.06" /> <interpretationCode codeSystem="local" code="H" /> < referenceRange> <observationRange> <text>0.00-0.90</text > </observationRange> </referenceRange> </observation > </component> <component> <observation moodCode="EVN" classCode="OBS"> <templateId root="216.840.1.504293.03.13.22.4.2" /> <id nullFlavor="NA" /> <code codeSystem="local" code="EOS#" displayName="EOS#" /> <statusCode code="completed" /> < effectiveTime value="" /> <value unit="10" xsi:type="PQ" value="0.19" /> <referenceRange> <observationRange> <text>0.00-0.50</text> </observationRange> </ referenceRange> </observation> </component> <component> <observation moodCode="EVN" classCode="OBS"> <templateId root= "216.840.1.103735.03.13.22.4.2" /> <id nullFlavor="NA" /> < code codeSystem="local" code="BASO#" displayName="BASO#" /> < statusCode code="completed" /> <effectiveTime value="" /> <value unit="10" xsi:type="PQ" value="0.05" /> <referenceRange > <observationRange> <text>0.00-0.20</text> < /observationRange> </referenceRange> </observation> </ component> <component> <observation moodCode="EVN" classCode="OBS"> <templateId root="16.840.1.937301.10..4.2" /> <id nullFlavor="NA" /> <code codeSystem="local" code="MANDIFF" displayName= "MAN DIFF" /> <statusCode code="completed" /> <effectiveTime value="" /> <value unit="" xsi:type="PQ" value="N" /> <referenceRange> <observationRange> <text> -</text> </observationRange> </referenceRange> </observation> </component> <component> <observation moodCode="EVN" classCode="OBS"> <templateId root= "16.840.1.042973.03.13.22.4.2" /> <id nullFlavor="NA" /> < code codeSystem="local" code="SEGS" displayName="SEGS" /> <statusCode code="completed" /> <effectiveTime value="" /> < value unit="%" xsi:type="PQ" value="56" /> <referenceRange> <observationRange> <text>40-60</text> </ observationRange> </referenceRange> </observation> </ component> <component> <observation moodCode="EVN" classCode="OBS"> <templateId root="16.840.1.461998.10..4.2" /> <id nullFlavor="NA" /> <code codeSystem="local" code="BANDS" displayName= "BANDS" /> <statusCode code="completed" /> <effectiveTime value="" /> <value unit="%" xsi:type="PQ" value="2" /> <referenceRange> <observationRange> <text>0-5< /text> </observationRange> </referenceRange> </ observation> </component> <component> <observation moodCode= "EVN" classCode="OBS"> <templateId root="216.840.1.052708.10..4.2 " /> <id nullFlavor="NA" /> <code codeSystem="local" code= "LYMPHS" displayName="LYMPHS" /> <statusCode code="completed" /> <effectiveTime value="" /> <value unit="%" xsi:type ="PQ" value="25" /> <referenceRange> <observationRange> <text>20-40</text> </observationRange> </ referenceRange> </observation> </component> <component> <observation moodCode="EVN" classCode="OBS"> <templateId root= "07.10.840.1.110284.03.13.22.4.2" /> <id nullFlavor="NA" /> < code codeSystem="local" code="VARLYMP" displayName="JUAN A LYMP" /> < statusCode code="completed" /> <effectiveTime value="" /> <value unit="%" xsi:type="PQ" value="0" /> <referenceRange > <observationRange> <text>0-0</text> </ observationRange> </referenceRange> </observation> </ component> <component> <observation moodCode="EVN" classCode="OBS"> <templateId root="07.10.840.1.989684.10.4.2" /> <id nullFlavor="NA" /> <code codeSystem="local" code="MONOS" displayName= "MONOS" /> <statusCode code="completed" /> <effectiveTime value="" /> <value unit="%" xsi:type="PQ" value="15" / > <interpretationCode codeSystem="local" code="H" /> < referenceRange> <observationRange> <text>4-8</text> </observationRange> </referenceRange> </observation> </component> <component> <observation moodCode="EVN" classCode= "OBS"> <templateId root="16.840.1.522235.1022.4.2" /> < id nullFlavor="NA" /> <code codeSystem="local" code="EOS" displayName= "EOS" /> <statusCode code="completed" /> <effectiveTime value= "" /> <value unit="%" xsi:type="PQ" value="2" /> <referenceRange> <observationRange> <text>0-5</text > </observationRange> </referenceRange> </observation > </component> <component> <observation moodCode="EVN" classCode="OBS"> <templateId root="07.10.840.1.686633.1022.4.2" /> <id nullFlavor="NA" /> <code codeSystem="local" code="BASOS" displayName="BASOS" /> <statusCode code="completed" /> < effectiveTime value="" /> <value unit="%" xsi:type="PQ " value="0" /> <referenceRange> <observationRange> <text>0-2</text> </observationRange> </referenceRange> </observation> </component> <component> <observation moodCode="EVN" classCode="OBS"> <templateId root= "07.10.840.1.315897.102022.4.2" /> <id nullFlavor="NA" /> < code codeSystem="local" code="POIKILO" displayName="POIKILO" /> < statusCode code="completed" /> <effectiveTime value="" /> <value unit="" xsi:type="PQ" value="SMALL" /> <referenceRange > <observationRange> <text /> </ observationRange> </referenceRange> </observation> </ component> <component> <observation moodCode="EVN" classCode="OBS"> <templateId root="840.1.375788.10.4.2" /> <id nullFlavor="NA" /> <code codeSystem="local" code="MACROCYT" displayName ="MACROCYT" /> <statusCode code="completed" /> <effectiveTime value="" /> <value unit="" xsi:type="PQ" value="1+" /> <referenceRange> <observationRange> <text /> </observationRange> </referenceRange> </observation> </component> </organizer> </entry> <entry> <organizer moodCode="EVN" classCode="BATTERY"> <templateId root="07.10.840.1.084507.03.13.22.4.1" /> <id nullFlavor="NA" /> <code codeSystem="local" code="CPK" displayName ="CPK TOTAL" /> <statusCode code="completed" /> <component> < observation moodCode="EVN" classCode="OBS"> <templateId root= "840.1.555783.03.13.22.4.2" /> <id nullFlavor="NA" /> < code codeSystem="local" code="CPK" displayName="CPK TOTAL" /> < statusCode code="completed" /> <effectiveTime value="" /> <value unit="U/L" xsi:type="PQ" value="77" /> <referenceRange > <observationRange> <text>21-232</text> </ observationRange> </referenceRange> </observation> </ component> </organizer> </entry> <entry> <organizer moodCode="EVN" classCode="BATTERY"> <templateId root="16.840.1.617219.10...4.1" /> <id nullFlavor="NA" /> <code codeSystem="local" code="CSECHOAD" displayName="ECHOCARDIOGRAM COMPLETE" /> <statusCode code="completed" /> <component> <observation moodCode="EVN" classCode="OBS"> < templateId root="07.10.840.1.503349.10...4.2" /> <id nullFlavor="NA " /> <code codeSystem="local" code="CSECHOAD" displayName="CSECHOAD" / > <statusCode code="completed" /> <effectiveTime value= "433694765499" /> <value unit="" xsi:type="PQ" value="See scanned documents." /> <referenceRange> <observationRange> <text /> </observationRange> </referenceRange> < /observation> </component> </organizer> </entry> <entry> < organizer moodCode="EVN" classCode="BATTERY"> <templateId root= "07.10.840.1.250866.10...4.1" /> <id nullFlavor="NA" /> <code codeSystem="local" code="MICR ALB" displayName="MICROALBUMIN" /> < statusCode code="completed" /> <component> <observation moodCode= "EVN" classCode="OBS"> <templateId root="07.10.840.1.709309.10..22.4.2 " /> <id nullFlavor="NA" /> <code codeSystem="local" code= "MICRALB" displayName="MICR ALB" /> <statusCode code="completed" /> <effectiveTime value="122794836338" /> <value unit="mg/l" xsi: type="PQ" value="10" /> <referenceRange> <observationRange> <text>0-20</text> </observationRange> </ referenceRange> </observation> </component> <component> <observation moodCode="EVN" classCode="OBS"> <templateId root= "2.16.840.1.045644.10..22.4.2" /> <id nullFlavor="NA" /> < code codeSystem="local" code="UCREAT" displayName="UCREAT" /> < statusCode code="completed" /> <effectiveTime value="039402259752" /> <value unit="mg/dl" xsi:type="PQ" value="50" /> < referenceRange> <observationRange> <text>10-300</text> </observationRange> </referenceRange> </observation> </component> <component> <observation moodCode="EVN" classCode ="OBS"> <templateId root="2.16.840.1.420111.10..22.4.2" /> < id nullFlavor="NA" /> <code codeSystem="local" code="A:C" displayName= "A:C" /> <statusCode code="completed" /> <effectiveTime value= "080901324316" /> <value unit="mg/G" xsi:type="PQ" value="20" /> <referenceRange> <observationRange> <text>-<=30</ text> </observationRange> </referenceRange> </ observation> </component> </organizer> </entry> <entry> <organizer moodCode="EVN" classCode="BATTERY"> <templateId root= "840.1.573104.03.13.22.4.1" /> <id nullFlavor="NA" /> <code codeSystem="local" code="UA" displayName="URINALYSIS" /> <statusCode code= "completed" /> <component> <observation moodCode="EVN" classCode= "OBS"> <templateId root="840.1.496562.03.13.22.4.2" /> < id nullFlavor="NA" /> <code codeSystem="local" code="SG" displayName= "SPECIFIC GRAVITY" /> <statusCode code="completed" /> < effectiveTime value="" /> <value unit="" xsi:type="PQ" value="1.015" /> <referenceRange> <observationRange> <text /> </observationRange> </referenceRange> </observation> </component> <component> <observation moodCode ="EVN" classCode="OBS"> <templateId root= "840.1.894533.03.13.22.4.2" /> <id nullFlavor="NA" /> < code codeSystem="local" code="UCOLOR" displayName="COLOR" /> < statusCode code="completed" /> <effectiveTime value="" /> <value unit="" xsi:type="PQ" value="YELLOW" /> <referenceRange > <observationRange> <text>YELLOW</text> </ observationRange> </referenceRange> </observation> </ component> <component> <observation moodCode="EVN" classCode="OBS"> <templateId root="07.10.840.1.346247.03.13.22.4.2" /> <id nullFlavor="NA" /> <code codeSystem="local" code="UCLARITY" displayName ="CLARITY" /> <statusCode code="completed" /> <effectiveTime value="" /> <value unit="" xsi:type="PQ" value="CLEAR" /> <referenceRange> <observationRange> <text>CLEAR </text> </observationRange> </referenceRange> </ observation> </component> <component> <observation moodCode= "EVN" classCode="OBS"> <templateId root="07.10.840.1.460099.03.13.22.4.2 " /> <id nullFlavor="NA" /> <code codeSystem="local" code= "UGLU" displayName="GLUCOSE" /> <statusCode code="completed" /> <effectiveTime value="" /> <value unit="mg/dl" xsi:type= "PQ" value="NEGATIVE" /> <referenceRange> <observationRange > <text>NEGATIVE</text> </observationRange> </ referenceRange> </observation> </component> <component> <observation moodCode="EVN" classCode="OBS"> <templateId root= "07.10.840.1.424882.03.13.22.4.2" /> <id nullFlavor="NA" /> < code codeSystem="local" code="UBILI" displayName="BILI" /> <statusCode code="completed" /> <effectiveTime value="" /> < value unit="" xsi:type="PQ" value="NEGATIVE" /> <referenceRange> <observationRange> <text>NEGATIVE</text> </ observationRange> </referenceRange> </observation> </ component> <component> <observation moodCode="EVN" classCode="OBS"> <templateId root="07.10.840.1.145446.03.13.22.4.2" /> <id nullFlavor="NA" /> <code codeSystem="local" code="UKETO" displayName= "KETONE" /> <statusCode code="completed" /> <effectiveTime value="" /> <value unit="" xsi:type="PQ" value="NEGATIVE" / > <referenceRange> <observationRange> <text> NEGATIVE</text> </observationRange> </referenceRange> </observation> </component> <component> <observation moodCode ="EVN" classCode="OBS"> <templateId root= "07.10.840.1.463430.10.22.4.2" /> <id nullFlavor="NA" /> < code codeSystem="local" code="UPH" displayName="PH" /> <statusCode code ="completed" /> <effectiveTime value="" /> <value unit="" xsi:type="PQ" value="7.5" /> <referenceRange> < observationRange> <text>5.0-7.5</text> </ observationRange> </referenceRange> </observation> </ component> <component> <observation moodCode="EVN" classCode="OBS"> <templateId root="07.10.840.1.707394..22.4.2" /> <id nullFlavor="NA" /> <code codeSystem="local" code="UPROT" displayName= "PROTEIN" /> <statusCode code="completed" /> <effectiveTime value="" /> <value unit="" xsi:type="PQ" value="NEGATIVE" / > <referenceRange> <observationRange> <text> NEGATIVE</text> </observationRange> </referenceRange> </observation> </component> <component> <observation moodCode ="EVN" classCode="OBS"> <templateId root= "07.10.840.1.163727...4.2" /> <id nullFlavor="NA" /> < code codeSystem="local" code="UURO" displayName="UROBILI" /> < statusCode code="completed" /> <effectiveTime value="" /> <value unit="mg/dl" xsi:type="PQ" value="0.2" /> < referenceRange> <observationRange> <text>0.2-1.0</text> </observationRange> </referenceRange> </observation > </component> <component> <observation moodCode="EVN" classCode="OBS"> <templateId root="2.840.1.533364.03.13.22.4.2" /> <id nullFlavor="NA" /> <code codeSystem="local" code="UNITRITE " displayName="NITRITE" /> <statusCode code="completed" /> < effectiveTime value="" /> <value unit="" xsi:type="PQ" value="NEGATIVE" /> <referenceRange> <observationRange> <text>NEGATIVE</text> </observationRange> </ referenceRange> </observation> </component> <component> <observation moodCode="EVN" classCode="OBS"> <templateId root= "16.840.1.950849.10..4.2" /> <id nullFlavor="NA" /> < code codeSystem="local" code="UBLOOD" displayName="BLOOD" /> < statusCode code="completed" /> <effectiveTime value="953476432676" /> <value unit="" xsi:type="PQ" value="NEGATIVE" /> < referenceRange> <observationRange> <text>NEGATIVE</text > </observationRange> </referenceRange> </observation > </component> <component> <observation moodCode="EVN" classCode="OBS"> <templateId root="07.10.840.1.446860.10.22.4.2" /> <id nullFlavor="NA" /> <code codeSystem="local" code="ULEUKO" displayName="LEUKOCYT" /> <statusCode code="completed" /> < effectiveTime value="" /> <value unit="" xsi:type="PQ" value="NEGATIVE" /> <referenceRange> <observationRange> <text>NEGATIVE</text> </observationRange> </ referenceRange> </observation> </component> <component> <observation moodCode="EVN" classCode="OBS"> <templateId root= "216.840.1.020587.03.13.22.4.2" /> <id nullFlavor="NA" /> < code codeSystem="local" code="UWBC" displayName="WBC" /> <statusCode code="completed" /> <effectiveTime value="" /> < value unit="" xsi:type="PQ" value="NONE" /> <referenceRange> <observationRange> <text>NONE SEEN</text> </ observationRange> </referenceRange> </observation> </ component> <component> <observation moodCode="EVN" classCode="OBS"> <templateId root="216.840.1.130323.03.13.22.4.2" /> <id nullFlavor="NA" /> <code codeSystem="local" code="URBC" displayName= "RBC" /> <statusCode code="completed" /> <effectiveTime value= "" /> <value unit="" xsi:type="PQ" value="NONE" /> <referenceRange> <observationRange> <text>NONE SEEN</ text> </observationRange> </referenceRange> </ observation> </component> <component> <observation moodCode= "EVN" classCode="OBS"> <templateId root="840.1.184590.10.4.2 " /> <id nullFlavor="NA" /> <code codeSystem="local" code= "UBACT." displayName="BACTERIA" /> <statusCode code="completed" /> <effectiveTime value="417412418226" /> <value unit="/LPF" xsi: type="PQ" value="NEGATIVE" /> <referenceRange> < observationRange> <text>NONE SEEN</text> </ observationRange> </referenceRange> </observation> </ component> <component> <observation moodCode="EVN" classCode="OBS"> <templateId root="840.1.255542.03.13.22.4.2" /> <id nullFlavor="NA" /> <code codeSystem="local" code="SQEPI" displayName= "SQ EPI" /> <statusCode code="completed" /> <effectiveTime value="590973404998" /> <value unit="/LPF" xsi:type="PQ" value="NONE" / > <referenceRange> <observationRange> <text> NONE SEEN</text> </observationRange> </referenceRange> </observation> </component> </organizer> </entry> <entry> < organizer moodCode="EVN" classCode="BATTERY"> <templateId root= "840.1.188155.1022.4.1" /> <id nullFlavor="NA" /> <code codeSystem="local" code="CBC AUTO" displayName="CBC/ AUTO DIFF" /> < statusCode code="completed" /> <component> <observation moodCode= "EVN" classCode="OBS"> <templateId root="840.1.673540.1022.4.2 " /> <id nullFlavor="NA" /> <code codeSystem="local" code="WBC " displayName="WHITE BLOOD COUNT" /> <statusCode code="completed" /> <effectiveTime value="612369855435" /> <value unit="10" xsi: type="PQ" value="4.43" /> <interpretationCode codeSystem="local" code= "L" /> <referenceRange> <observationRange> < text>4.60-10.20</text> </observationRange> </referenceRange > </observation> </component> <component> <observation moodCode="EVN" classCode="OBS"> <templateId root= "2.16.840.1.401394...22.4.2" /> <id nullFlavor="NA" /> < code codeSystem="local" code="HCT" displayName="HEMATOCRIT" /> < statusCode code="completed" /> <effectiveTime value="663024613497" /> <value unit="%" xsi:type="PQ" value="40.1" /> < interpretationCode codeSystem="local" code="L" /> <referenceRange> <observationRange> <text>42.0-52.0</text> </ observationRange> </referenceRange> </observation> </ component> <component> <observation moodCode="EVN" classCode="OBS"> <templateId root="216.840.1.793650.102022.4.2" /> <id nullFlavor="NA" /> <code codeSystem="local" code="HGB" displayName= "HEMOGLOBIN" /> <statusCode code="completed" /> < effectiveTime value="676806212685" /> <value unit="g/dl" xsi:type="PQ" value="14.0" /> <referenceRange> <observationRange> <text>14.0-18.0</text> </observationRange> </ referenceRange> </observation> </component> <component> <observation moodCode="EVN" classCode="OBS"> <templateId root= "216.840.1.420252.1022.4.2" /> <id nullFlavor="NA" /> < code codeSystem="local" code="PLT.COUT" displayName="PLATELET COUNT" /> <statusCode code="completed" /> <effectiveTime value="264360116232" / > <value unit="10" xsi:type="PQ" value="206" /> < referenceRange> <observationRange> <text>142-424</text> </observationRange> </referenceRange> </observation > </component> <component> <observation moodCode="EVN" classCode="OBS"> <templateId root="216.840.1.027558.03.13.22.4.2" /> <id nullFlavor="NA" /> <code codeSystem="local" code="RBC" displayName="RBC" /> <statusCode code="completed" /> < effectiveTime value="381598350939" /> <value unit="10" xsi:type="PQ" value="3.90" /> <interpretationCode codeSystem="local" code="L" /> <referenceRange> <observationRange> <text>4.70- 6.10</text> </observationRange> </referenceRange> </ observation> </component> <component> <observation moodCode= "EVN" classCode="OBS"> <templateId root="216.840.1.782918.10.22.4.2 " /> <id nullFlavor="NA" /> <code codeSystem="local" code="MCV " displayName="MCV" /> <statusCode code="completed" /> < effectiveTime value="478535726080" /> <value unit="fl" xsi:type="PQ" value="102.8" /> <interpretationCode codeSystem="local" code="H" /> <referenceRange> <observationRange> <text>80.0- 100.0</text> </observationRange> </referenceRange> </ observation> </component> <component> <observation moodCode= "EVN" classCode="OBS"> <templateId root="216.840.1.422349.10..4.2 " /> <id nullFlavor="NA" /> <code codeSystem="local" code="MCH " displayName="MCH" /> <statusCode code="completed" /> < effectiveTime value="769409504356" /> <value unit="pg" xsi:type="PQ" value="35.9" /> <interpretationCode codeSystem="local" code="H" /> <referenceRange> <observationRange> <text>26.0- 34.0</text> </observationRange> </referenceRange> </ observation> </component> <component> <observation moodCode= "EVN" classCode="OBS"> <templateId root="216.840.1.176207.10..4.2 " /> <id nullFlavor="NA" /> <code codeSystem="local" code= "MCHC" displayName="MCHC" /> <statusCode code="completed" /> < effectiveTime value="265305510112" /> <value unit="g/dl" xsi:type="PQ" value="34.9" /> <referenceRange> <observationRange> <text>29.0-37.0</text> </observationRange> </ referenceRange> </observation> </component> <component> <observation moodCode="EVN" classCode="OBS"> <templateId root= "216.840.1.506579.03.13.22.4.2" /> <id nullFlavor="NA" /> < code codeSystem="local" code="RDW" displayName="RDW" /> <statusCode code="completed" /> <effectiveTime value="173832449791" /> < value unit="%" xsi:type="PQ" value="12.9" /> <referenceRange> <observationRange> <text>11.5-14.5</text> </ observationRange> </referenceRange> </observation> </ component> <component> <observation moodCode="EVN" classCode="OBS"> <templateId root="216.840.1.162342.03.13.22.4.2" /> <id nullFlavor="NA" /> <code codeSystem="local" code="MPV" displayName="MPV " /> <statusCode code="completed" /> <effectiveTime value= "597780009227" /> <value unit="fl" xsi:type="PQ" value="8.40" /> <referenceRange> <observationRange> <text /> </observationRange> </referenceRange> </observation> < /component> <component> <observation moodCode="EVN" classCode="OBS" > <templateId root="216.840.1.410260.03.13.22.4.2" /> <id nullFlavor="NA" /> <code codeSystem="local" code="GRAN%" displayName="GRAN%" /> <statusCode code="completed" /> < effectiveTime value="430923343953" /> <value unit="%" xsi:type="PQ " value="32.3" /> <interpretationCode codeSystem="local" code="L" /> <referenceRange> <observationRange> <text>37.0- 80.0</text> </observationRange> </referenceRange> </ observation> </component> <component> <observation moodCode= "EVN" classCode="OBS"> <templateId root="2.16.840.1.171892.10.20.4.2 " /> <id nullFlavor="NA" /> <code codeSystem="local" code= "LYMPH%" displayName="LYMPH%" /> <statusCode code="completed" / > <effectiveTime value="789372415707" /> <value unit="%" xsi:type="PQ" value="42.20" /> <referenceRange> < observationRange> <text>10.00-50.00</text> </ observationRange> </referenceRange> </observation> </ component> <component> <observation moodCode="EVN" classCode="OBS"> <templateId root="2.840.1.930707.03.13.22.4.2" /> <id nullFlavor="NA" /> <code codeSystem="local" code="MONO%" displayName="MONO%" /> <statusCode code="completed" /> < effectiveTime value="644936635498" /> <value unit="%" xsi:type="PQ " value="20.30" /> <interpretationCode codeSystem="local" code="H" /> <referenceRange> <observationRange> <text>0.00- 12.00</text> </observationRange> </referenceRange> </ observation> </component> <component> <observation moodCode= "EVN" classCode="OBS"> <templateId root="216.840.1.846179.10.2022.4.2 " /> <id nullFlavor="NA" /> <code codeSystem="local" code="EOS %" displayName="EOS%" /> <statusCode code="completed" /> <effectiveTime value="922762501260" /> <value unit="%" xsi:type ="PQ" value="4.10" /> <referenceRange> <observationRange> <text>0.00-7.00</text> </observationRange> </ referenceRange> </observation> </component> <component> <observation moodCode="EVN" classCode="OBS"> <templateId root= "2.16.840.1.557346.10.20.22.4.2" /> <id nullFlavor="NA" /> < code codeSystem="local" code="BASO%" displayName="BASO%" /> < statusCode code="completed" /> <effectiveTime value="830856286142" /> <value unit="%" xsi:type="PQ" value="1.10" /> < referenceRange> <observationRange> <text>0.00-2.50</text > </observationRange> </referenceRange> </observation > </component> <component> <observation moodCode="EVN" classCode="OBS"> <templateId root="2.16.840.1.790824.10.20.22.4.2" /> <id nullFlavor="NA" /> <code codeSystem="local" code="GRAN#" displayName="GRAN#" /> <statusCode code="completed" /> < effectiveTime value="627027535410" /> <value unit="10" xsi:type="PQ" value="1.43" /> <interpretationCode codeSystem="local" code="L" /> <referenceRange> <observationRange> <text>2.00- 6.90</text> </observationRange> </referenceRange> </ observation> </component> <component> <observation moodCode= "EVN" classCode="OBS"> <templateId root="07.10.840.1.091300.10..4.2 " /> <id nullFlavor="NA" /> <code codeSystem="local" code= "LYMPH#" displayName="LYMPH#" /> <statusCode code="completed" /> <effectiveTime value="" /> <value unit="10" xsi:type= "PQ" value="1.87" /> <referenceRange> <observationRange> <text>0.60-3.40</text> </observationRange> </ referenceRange> </observation> </component> <component> <observation moodCode="EVN" classCode="OBS"> <templateId root= "07.10.840.1.310773.03.13.22.4.2" /> <id nullFlavor="NA" /> < code codeSystem="local" code="MONO#" displayName="MONO#" /> < statusCode code="completed" /> <effectiveTime value="" /> <value unit="10" xsi:type="PQ" value="0.90" /> <referenceRange > <observationRange> <text>0.00-0.90</text> < /observationRange> </referenceRange> </observation> </ component> <component> <observation moodCode="EVN" classCode="OBS"> <templateId root="07.10.840.1.998868.10.2022.4.2" /> <id nullFlavor="NA" /> <code codeSystem="local" code="EOS#" displayName= "EOS#" /> <statusCode code="completed" /> <effectiveTime value ="300695019631" /> <value unit="10" xsi:type="PQ" value="0.18" /> <referenceRange> <observationRange> <text>0.00-0.50 </text> </observationRange> </referenceRange> </ observation> </component> <component> <observation moodCode= "EVN" classCode="OBS"> <templateId root="07.10.840.1.010410.10.4.2 " /> <id nullFlavor="NA" /> <code codeSystem="local" code= "BASO#" displayName="BASO#" /> <statusCode code="completed" /> <effectiveTime value="517700339638" /> <value unit="10" xsi:type="PQ " value="0.05" /> <referenceRange> <observationRange> <text>0.00-0.20</text> </observationRange> </ referenceRange> </observation> </component> <component> <observation moodCode="EVN" classCode="OBS"> <templateId root= "840.1.235883.03.13.22.4.2" /> <id nullFlavor="NA" /> < code codeSystem="local" code="MANDIFF" displayName="MAN DIFF" /> < statusCode code="completed" /> <effectiveTime value="978686036975" /> <value unit="" xsi:type="PQ" value="N" /> < referenceRange> <observationRange> <text>-</ text> </observationRange> </referenceRange> </ observation> </component> <component> <observation moodCode= "EVN" classCode="OBS"> <templateId root="07.10.840.1.333568.03.13.22.4.2 " /> <id nullFlavor="NA" /> <code codeSystem="local" code= "SEGS" displayName="SEGS" /> <statusCode code="completed" /> < effectiveTime value="666811341084" /> <value unit="%" xsi:type="PQ " value="37" /> <interpretationCode codeSystem="local" code="L" /> <referenceRange> <observationRange> <text>40-60</ text> </observationRange> </referenceRange> </ observation> </component> <component> <observation moodCode= "EVN" classCode="OBS"> <templateId root="216.840.1.919725.10.20.22.4.2 " /> <id nullFlavor="NA" /> <code codeSystem="local" code= "BANDS" displayName="BANDS" /> <statusCode code="completed" /> <effectiveTime value="577079002258" /> <value unit="%" xsi:type= "PQ" value="1" /> <referenceRange> <observationRange> <text>0-5</text> </observationRange> </ referenceRange> </observation> </component> <component> <observation moodCode="EVN" classCode="OBS"> <templateId root= "216.840.1.067972.10..22.4.2" /> <id nullFlavor="NA" /> < code codeSystem="local" code="LYMPHS" displayName="LYMPHS" /> < statusCode code="completed" /> <effectiveTime value="925697283767" /> <value unit="%" xsi:type="PQ" value="45" /> < interpretationCode codeSystem="local" code="H" /> <referenceRange> <observationRange> <text>20-40</text> </ observationRange> </referenceRange> </observation> </ component> <component> <observation moodCode="EVN" classCode="OBS"> <templateId root="16.840.1.937652.22.4.2" /> <id nullFlavor="NA" /> <code codeSystem="local" code="VARLYMP" displayName= "JUAN A LYMP" /> <statusCode code="completed" /> <effectiveTime value="367677835214" /> <value unit="%" xsi:type="PQ" value="0" /> <referenceRange> <observationRange> <text>0-0< /text> </observationRange> </referenceRange> </ observation> </component> <component> <observation moodCode= "EVN" classCode="OBS"> <templateId root="16.840.1.997271.03.13.22.4.2 " /> <id nullFlavor="NA" /> <code codeSystem="local" code= "MONOS" displayName="MONOS" /> <statusCode code="completed" /> <effectiveTime value="305667913695" /> <value unit="%" xsi:type= "PQ" value="13" /> <interpretationCode codeSystem="local" code="H" /> <referenceRange> <observationRange> <text>4-8</ text> </observationRange> </referenceRange> </ observation> </component> <component> <observation moodCode= "EVN" classCode="OBS"> <templateId root="07.10.840.1.689432.03.13.22.4.2 " /> <id nullFlavor="NA" /> <code codeSystem="local" code="EOS " displayName="EOS" /> <statusCode code="completed" /> < effectiveTime value="085906834091" /> <value unit="%" xsi:type="PQ " value="3" /> <referenceRange> <observationRange> <text>0-5</text> </observationRange> </referenceRange> </observation> </component> <component> <observation moodCode="EVN" classCode="OBS"> <templateId root= "16.840.1.604164.1022.4.2" /> <id nullFlavor="NA" /> < code codeSystem="local" code="BASOS" displayName="BASOS" /> < statusCode code="completed" /> <effectiveTime value="383307193512" /> <value unit="%" xsi:type="PQ" value="1" /> <referenceRange > <observationRange> <text>0-2</text> </ observationRange> </referenceRange> </observation> </ component> <component> <observation moodCode="EVN" classCode="OBS"> <templateId root="16.840.1.473898.03.13.22.4.2" /> <id nullFlavor="NA" /> <code codeSystem="local" code="PLTMORPH" displayName ="PLTMORPH" /> <statusCode code="completed" /> <effectiveTime value="346737182267" /> <value unit="" xsi:type="PQ" value="NORMAL" /> <referenceRange> <observationRange> <text /> </observationRange> </referenceRange> </observation> </component> <component> <observation moodCode="EVN" classCode ="OBS"> <templateId root="07.10.840.1.531991.1022.4.2" /> < id nullFlavor="NA" /> <code codeSystem="local" code="MACROCYT" displayName="MACROCYT" /> <statusCode code="completed" /> < effectiveTime value="133692544075" /> <value unit="" xsi:type="PQ" value="1+" /> <referenceRange> <observationRange> <text /> </observationRange> </referenceRange> </ observation> </component> </organizer> </entry> <entry> <organizer moodCode="EVN" classCode="BATTERY"> <templateId root= "2.16.840.1.618976.10..22.4.1" /> <id nullFlavor="NA" /> <code codeSystem="local" code="CMP" displayName="COMPREHENSIVE METABOL" /> < statusCode code="completed" /> <component> <observation moodCode= "EVN" classCode="OBS"> <templateId root="2.16.840.1.643656....4.2 " /> <id nullFlavor="NA" /> <code codeSystem="local" code= "CREAT" displayName="CREATININE" /> <statusCode code="completed" /> <effectiveTime value="913422913606" /> <value unit="mg/dl" xsi: type="PQ" value="1.2" /> <referenceRange> <observationRange > <text>0.6-1.3</text> </observationRange> </ referenceRange> </observation> </component> <component> <observation moodCode="EVN" classCode="OBS"> <templateId root= "2.16.840.1.906180...22.4.2" /> <id nullFlavor="NA" /> < code codeSystem="local" code="NA" displayName="SODIUM" /> <statusCode code="completed" /> <effectiveTime value="381508450952" /> < value unit="mmol/L" xsi:type="PQ" value="136" /> <referenceRange> <observationRange> <text>136-145</text> </ observationRange> </referenceRange> </observation> </ component> <component> <observation moodCode="EVN" classCode="OBS"> <templateId root="07.10.840.1.393595.10..22.4.2" /> <id nullFlavor="NA" /> <code codeSystem="local" code="TBIL" displayName= "TOTAL BILIRUBIN" /> <statusCode code="completed" /> < effectiveTime value="959317361507" /> <value unit="mg/dl" xsi:type="PQ " value="0.6" /> <referenceRange> <observationRange> <text>0.0-1.0</text> </observationRange> </ referenceRange> </observation> </component> <component> <observation moodCode="EVN" classCode="OBS"> <templateId root= "07.10.840.1.758211.03.13.22.4.2" /> <id nullFlavor="NA" /> < code codeSystem="local" code="TP" displayName="TOTAL PROTEIN" /> < statusCode code="completed" /> <effectiveTime value="" /> <value unit="g/dl" xsi:type="PQ" value="7.1" /> < referenceRange> <observationRange> <text>6.4-8.2</text> </observationRange> </referenceRange> </observation > </component> <component> <observation moodCode="EVN" classCode="OBS"> <templateId root="07.10.840.1.957782.10.2022.4.2" /> <id nullFlavor="NA" /> <code codeSystem="local" code="ALB" displayName="ALBUMIN" /> <statusCode code="completed" /> < effectiveTime value="044453117540" /> <value unit="g/dl" xsi:type="PQ" value="4.0" /> <referenceRange> <observationRange> <text>3.4-5.0</text> </observationRange> </ referenceRange> </observation> </component> <component> <observation moodCode="EVN" classCode="OBS"> <templateId root= "07.10.840.1.980745.10..22.4.2" /> <id nullFlavor="NA" /> < code codeSystem="local" code="ALKP" displayName="ALK. PHOSPHATASE" /> < statusCode code="completed" /> <effectiveTime value="302609482489" /> <value unit="U/L" xsi:type="PQ" value="55" /> <referenceRange > <observationRange> <text>50-136</text> </ observationRange> </referenceRange> </observation> </ component> <component> <observation moodCode="EVN" classCode="OBS"> <templateId root="840.1.569947.03.13.22.4.2" /> <id nullFlavor="NA" /> <code codeSystem="local" code="BUN" displayName="BUN " /> <statusCode code="completed" /> <effectiveTime value= "430580864948" /> <value unit="mg/dl" xsi:type="PQ" value="11" /> <referenceRange> <observationRange> <text>7-18</ text> </observationRange> </referenceRange> </ observation> </component> <component> <observation moodCode= "EVN" classCode="OBS"> <templateId root="07.10.840.1.414373...4.2 " /> <id nullFlavor="NA" /> <code codeSystem="local" code="CA " displayName="CALCIUM" /> <statusCode code="completed" /> < effectiveTime value="445316286569" /> <value unit="mg/dl" xsi:type="PQ " value="8.7" /> <referenceRange> <observationRange> <text>8.5-10.1</text> </observationRange> </ referenceRange> </observation> </component> <component> <observation moodCode="EVN" classCode="OBS"> <templateId root= "16.840.1.826215.10..22.4.2" /> <id nullFlavor="NA" /> < code codeSystem="local" code="CL" displayName="CHLORIDE" /> < statusCode code="completed" /> <effectiveTime value="332441383279" /> <value unit="mmol/L" xsi:type="PQ" value="99" /> < referenceRange> <observationRange> <text>98-107</text> </observationRange> </referenceRange> </observation> </component> <component> <observation moodCode="EVN" classCode ="OBS"> <templateId root="07.10.840.1.006588.10..4.2" /> < id nullFlavor="NA" /> <code codeSystem="local" code="CO2" displayName= "CO2" /> <statusCode code="completed" /> <effectiveTime value= "701225844964" /> <value unit="mmol/L" xsi:type="PQ" value="29.9" /> <referenceRange> <observationRange> <text>21.0- 32.0</text> </observationRange> </referenceRange> </ observation> </component> <component> <observation moodCode= "EVN" classCode="OBS"> <templateId root="07.10.840.1.946811.10.20.22.4.2 " /> <id nullFlavor="NA" /> <code codeSystem="local" code="GLU " displayName="GLUCOSE" /> <statusCode code="completed" /> < effectiveTime value="099530150948" /> <value unit="mg/dl" xsi:type="PQ " value="102" /> <referenceRange> <observationRange> <text>70-110</text> </observationRange> </ referenceRange> </observation> </component> <component> <observation moodCode="EVN" classCode="OBS"> <templateId root= "07.10.840.1.534792.10...4.2" /> <id nullFlavor="NA" /> < code codeSystem="local" code="K" displayName="POTASSIUM" /> < statusCode code="completed" /> <effectiveTime value="677585861879" /> <value unit="mmol/L" xsi:type="PQ" value="3.8" /> < referenceRange> <observationRange> <text>3.5-5.1</text> </observationRange> </referenceRange> </observation > </component> <component> <observation moodCode="EVN" classCode="OBS"> <templateId root="07.10.840.1.030572.10...4.2" /> <id nullFlavor="NA" /> <code codeSystem="local" code="AST" displayName="AST" /> <statusCode code="completed" /> < effectiveTime value="521523067835" /> <value unit="U/L" xsi:type="PQ" value="24" /> <referenceRange> <observationRange> <text>15-37</text> </observationRange> </referenceRange > </observation> </component> <component> <observation moodCode="EVN" classCode="OBS"> <templateId root= "07.10.840.1.458745.10...4.2" /> <id nullFlavor="NA" /> < code codeSystem="local" code="ALT" displayName="ALT" /> <statusCode code="completed" /> <effectiveTime value="583090397114" /> < value unit="U/L" xsi:type="PQ" value="21" /> <referenceRange> <observationRange> <text>-78</text> </ observationRange> </referenceRange> </observation> </ component> <component> <observation moodCode="EVN" classCode="OBS"> <templateId root="216.840.1.281562.10..22.4.2" /> <id nullFlavor="NA" /> <code codeSystem="local" code="AGAP" displayName= "AGAP" /> <statusCode code="completed" /> <effectiveTime value ="490880009383" /> <value unit="" xsi:type="PQ" value="10.9" /> <referenceRange> <observationRange> <text>6.0-16.0</ text> </observationRange> </referenceRange> </ observation> </component> <component> <observation moodCode= "EVN" classCode="OBS"> <templateId root="216.840.1.459402.10..22.4.2 " /> <id nullFlavor="NA" /> <code codeSystem="local" code="BN/ CR" displayName="BN/CR" /> <statusCode code="completed" /> < effectiveTime value="399436766700" /> <value unit="" xsi:type="PQ" value="9.2" /> <referenceRange> <observationRange> <text>6.0-20.0</text> </observationRange> </ referenceRange> </observation> </component> </organizer> </entry > <entry> <organizer moodCode="EVN" classCode="BATTERY"> <templateId root="07.10.840.1.468591.10...4.1" /> <id nullFlavor="NA" /> <code codeSystem="local" code="LIPID" displayName="LIPID PANEL" /> <statusCode code="completed" /> <component> <observation moodCode="EVN" classCode="OBS"> <templateId root="840.1.290109.03.13.22.4.2" /> <id nullFlavor="NA" /> <code codeSystem="local" code="TRIG" displayName="TRIGLYCERIDES" /> <statusCode code="completed" /> <effectiveTime value="904400303998" /> <value unit="mg/dl" xsi:type= "PQ" value="110" /> <referenceRange> <observationRange> <text>0-150</text> </observationRange> </ referenceRange> </observation> </component> <component> <observation moodCode="EVN" classCode="OBS"> <templateId root= "840.1.315636.03.13.22.4.2" /> <id nullFlavor="NA" /> < code codeSystem="local" code="CHOL" displayName="CHOLESTEROL" /> < statusCode code="completed" /> <effectiveTime value="374033299275" /> <value unit="mg/dl" xsi:type="PQ" value="173" /> < referenceRange> <observationRange> <text>0-200</text> </observationRange> </referenceRange> </observation> </component> <component> <observation moodCode="EVN" classCode= "OBS"> <templateId root="07.10.840.1.635507.03.13.22.4.2" /> < id nullFlavor="NA" /> <code codeSystem="local" code="HDL" displayName= "HDL CHOLESTEROL" /> <statusCode code="completed" /> < effectiveTime value="256974896216" /> <value unit="mg/dl" xsi:type="PQ " value="63" /> <referenceRange> <observationRange> <text>40-</text> </observationRange> </referenceRange > </observation> </component> <component> <observation moodCode="EVN" classCode="OBS"> <templateId root= "216.840.1.848683.10..4.2" /> <id nullFlavor="NA" /> < code codeSystem="local" code="LDL" displayName="LDL" /> <statusCode code="completed" /> <effectiveTime value="604853494574" /> < value unit="mg/dl" xsi:type="PQ" value="88" /> <referenceRange> <observationRange> <text>0-130</text> </ observationRange> </referenceRange> </observation> </ component> </organizer> </entry> <entry> <organizer moodCode="EVN" classCode="BATTERY"> <templateId root="216.840.1.769624.10..4.1" /> <id nullFlavor="NA" /> <code codeSystem="local" code="UA" displayName= "URINALYSIS" /> <statusCode code="completed" /> <component> < observation moodCode="EVN" classCode="OBS"> <templateId root= "07.10.840.1.861824.03.13.22.4.2" /> <id nullFlavor="NA" /> < code codeSystem="local" code="SG" displayName="SPECIFIC GRAVITY" /> < statusCode code="completed" /> <effectiveTime value="973982172299" /> <value unit="" xsi:type="PQ" value="1.3015" /> <referenceRange > <observationRange> <text /> </ observationRange> </referenceRange> </observation> </ component> <component> <observation moodCode="EVN" classCode="OBS"> <templateId root="16.840.1.558765.10.4.2" /> <id nullFlavor="NA" /> <code codeSystem="local" code="UCOLOR" displayName= "COLOR" /> <statusCode code="completed" /> <effectiveTime value="" /> <value unit="" xsi:type="PQ" value="YELLOW" /> <referenceRange> <observationRange> <text> YELLOW</text> </observationRange> </referenceRange> < /observation> </component> <component> <observation moodCode= "EVN" classCode="OBS"> <templateId root="840.1.224358.03.13.22.4.2 " /> <id nullFlavor="NA" /> <code codeSystem="local" code= "UCLARITY" displayName="CLARITY" /> <statusCode code="completed" /> <effectiveTime value="533694423281" /> <value unit="" xsi:type= "PQ" value="CLEAR" /> <referenceRange> <observationRange> <text>CLEAR</text> </observationRange> </ referenceRange> </observation> </component> <component> <observation moodCode="EVN" classCode="OBS"> <templateId root= "840.1.891740.03.13.22.4.2" /> <id nullFlavor="NA" /> < code codeSystem="local" code="UGLU" displayName="GLUCOSE" /> < statusCode code="completed" /> <effectiveTime value="439307490773" /> <value unit="mg/dl" xsi:type="PQ" value="NEGATIVE" /> < referenceRange> <observationRange> <text>NEGATIVE</text > </observationRange> </referenceRange> </observation > </component> <component> <observation moodCode="EVN" classCode="OBS"> <templateId root="07.10.840.1.029530.03.13.22.4.2" /> <id nullFlavor="NA" /> <code codeSystem="local" code="UBILI" displayName="BILI" /> <statusCode code="completed" /> < effectiveTime value="834646982782" /> <value unit="" xsi:type="PQ" value="NEGATIVE" /> <referenceRange> <observationRange> <text>NEGATIVE</text> </observationRange> </ referenceRange> </observation> </component> <component> <observation moodCode="EVN" classCode="OBS"> <templateId root= "07.10.840.1.150105.03.13.22.4.2" /> <id nullFlavor="NA" /> < code codeSystem="local" code="UKETO" displayName="KETONE" /> < statusCode code="completed" /> <effectiveTime value="610772840924" /> <value unit="" xsi:type="PQ" value="NEGATIVE" /> < referenceRange> <observationRange> <text>NEGATIVE</text > </observationRange> </referenceRange> </observation > </component> <component> <observation moodCode="EVN" classCode="OBS"> <templateId root="07.10.840.1.423351.03.13.22.4.2" /> <id nullFlavor="NA" /> <code codeSystem="local" code="UPH" displayName="PH" /> <statusCode code="completed" /> < effectiveTime value="444544942544" /> <value unit="" xsi:type="PQ" value="7.5" /> <referenceRange> <observationRange> <text>5.0-7.5</text> </observationRange> </ referenceRange> </observation> </component> <component> <observation moodCode="EVN" classCode="OBS"> <templateId root= "07.10.840.1.841916.03.13.22.4.2" /> <id nullFlavor="NA" /> < code codeSystem="local" code="UPROT" displayName="PROTEIN" /> < statusCode code="completed" /> <effectiveTime value="518695723621" /> <value unit="" xsi:type="PQ" value="NEGATIVE" /> < referenceRange> <observationRange> <text>NEGATIVE</text > </observationRange> </referenceRange> </observation > </component> <component> <observation moodCode="EVN" classCode="OBS"> <templateId root="07.10.840.1.862119.03.13.22.4.2" /> <id nullFlavor="NA" /> <code codeSystem="local" code="UURO" displayName="UROBILI" /> <statusCode code="completed" /> < effectiveTime value="072636614487" /> <value unit="mg/dl" xsi:type="PQ " value="0.2" /> <referenceRange> <observationRange> <text>0.2-1.0</text> </observationRange> </ referenceRange> </observation> </component> <component> <observation moodCode="EVN" classCode="OBS"> <templateId root= "07.10.840.1.786260.03.13.22.4.2" /> <id nullFlavor="NA" /> < code codeSystem="local" code="UNITRITE" displayName="NITRITE" /> < statusCode code="completed" /> <effectiveTime value="482677237060" /> <value unit="" xsi:type="PQ" value="NEGATIVE" /> < referenceRange> <observationRange> <text>NEGATIVE</text > </observationRange> </referenceRange> </observation > </component> <component> <observation moodCode="EVN" classCode="OBS"> <templateId root="16.840.1.550513.10...4.2" /> <id nullFlavor="NA" /> <code codeSystem="local" code="UBLOOD" displayName="BLOOD" /> <statusCode code="completed" /> < effectiveTime value="827072436502" /> <value unit="" xsi:type="PQ" value="NEGATIVE" /> <referenceRange> <observationRange> <text>NEGATIVE</text> </observationRange> </ referenceRange> </observation> </component> <component> <observation moodCode="EVN" classCode="OBS"> <templateId root= "16.840.1.942677.10..22.4.2" /> <id nullFlavor="NA" /> < code codeSystem="local" code="ULEUKO" displayName="LEUKOCYT" /> < statusCode code="completed" /> <effectiveTime value="902085645833" /> <value unit="" xsi:type="PQ" value="NEGATIVE" /> < referenceRange> <observationRange> <text>NEGATIVE</text > </observationRange> </referenceRange> </observation > </component> <component> <observation moodCode="EVN" classCode="OBS"> <templateId root="07.10.840.1.755556.03.13.22.4.2" /> <id nullFlavor="NA" /> <code codeSystem="local" code="UWBC" displayName="WBC" /> <statusCode code="completed" /> < effectiveTime value="626995385121" /> <value unit="" xsi:type="PQ" value="NONE" /> <referenceRange> <observationRange> <text>NONE SEEN</text> </observationRange> </ referenceRange> </observation> </component> <component> <observation moodCode="EVN" classCode="OBS"> <templateId root= "216.840.1.722042.03.13.22.4.2" /> <id nullFlavor="NA" /> < code codeSystem="local" code="URBC" displayName="RBC" /> <statusCode code="completed" /> <effectiveTime value="689820416750" /> < value unit="" xsi:type="PQ" value="NONE" /> <referenceRange> <observationRange> <text>NONE SEEN</text> </ observationRange> </referenceRange> </observation> </ component> <component> <observation moodCode="EVN" classCode="OBS"> <templateId root="16.840.1.345275.03.13.22.4.2" /> <id nullFlavor="NA" /> <code codeSystem="local" code="UBACT." displayName= "BACTERIA" /> <statusCode code="completed" /> <effectiveTime value="943086367157" /> <value unit="/LPF" xsi:type="PQ" value= "NEGATIVE" /> <referenceRange> <observationRange> <text>NONE SEEN</text> </observationRange> </ referenceRange> </observation> </component> <component> <observation moodCode="EVN" classCode="OBS"> <templateId root= "216.840.1.610798.10..4.2" /> <id nullFlavor="NA" /> < code codeSystem="local" code="SQEPI" displayName="SQ EPI" /> < statusCode code="completed" /> <effectiveTime value="953811053978" /> <value unit="/LPF" xsi:type="PQ" value="NONE" /> < referenceRange> <observationRange> <text>NONE SEEN</text > </observationRange> </referenceRange> </observation > </component> </organizer> </entry> <entry> <organizer moodCode= "EVN" classCode="BATTERY"> <templateId root="16.840.1.205842...4.1 " /> <id nullFlavor="NA" /> <code codeSystem="local" code="CMP" displayName="COMPREHENSIVE METABOL" /> <statusCode code="completed" /> <component> <observation moodCode="EVN" classCode="OBS"> < templateId root="16.840.1.353308...4.2" /> <id nullFlavor="NA " /> <code codeSystem="local" code="CREAT" displayName="CREATININE" /> <statusCode code="completed" /> <effectiveTime value= "209822406890" /> <value unit="mg/dl" xsi:type="PQ" value="1.0" /> <referenceRange> <observationRange> <text>0.6-1.3< /text> </observationRange> </referenceRange> </ observation> </component> <component> <observation moodCode= "EVN" classCode="OBS"> <templateId root="216.840.1.255056.10..4.2 " /> <id nullFlavor="NA" /> <code codeSystem="local" code="NA " displayName="SODIUM" /> <statusCode code="completed" /> < effectiveTime value="916242308260" /> <value unit="mmol/L" xsi:type="PQ " value="131" /> <interpretationCode codeSystem="local" code="L" /> <referenceRange> <observationRange> <text>136-145 </text> </observationRange> </referenceRange> </ observation> </component> <component> <observation moodCode= "EVN" classCode="OBS"> <templateId root="2.16.840.1.455996.10...4.2 " /> <id nullFlavor="NA" /> <code codeSystem="local" code= "TBIL" displayName="TOTAL BILIRUBIN" /> <statusCode code="completed" / > <effectiveTime value="401099490947" /> <value unit="mg/dl" xsi:type="PQ" value="0.5" /> <referenceRange> < observationRange> <text>0.0-1.0</text> </ observationRange> </referenceRange> </observation> </ component> <component> <observation moodCode="EVN" classCode="OBS"> <templateId root="2.16.840.1.901220.10...4.2" /> <id nullFlavor="NA" /> <code codeSystem="local" code="TP" displayName= "TOTAL PROTEIN" /> <statusCode code="completed" /> < effectiveTime value="451035653130" /> <value unit="g/dl" xsi:type="PQ" value="7.4" /> <referenceRange> <observationRange> <text>6.4-8.2</text> </observationRange> </ referenceRange> </observation> </component> <component> <observation moodCode="EVN" classCode="OBS"> <templateId root= "16.840.1.094513.10..22.4.2" /> <id nullFlavor="NA" /> < code codeSystem="local" code="ALB" displayName="ALBUMIN" /> < statusCode code="completed" /> <effectiveTime value="" /> <value unit="g/dl" xsi:type="PQ" value="4.1" /> < referenceRange> <observationRange> <text>3.4-5.0</text> </observationRange> </referenceRange> </observation > </component> <component> <observation moodCode="EVN" classCode="OBS"> <templateId root="16.840.1.225970.10...4.2" /> <id nullFlavor="NA" /> <code codeSystem="local" code="ALKP" displayName="ALK. PHOSPHATASE" /> <statusCode code="completed" /> <effectiveTime value="" /> <value unit="U/L" xsi:type= "PQ" value="55" /> <referenceRange> <observationRange> <text>50-136</text> </observationRange> </ referenceRange> </observation> </component> <component> <observation moodCode="EVN" classCode="OBS"> <templateId root= "16.840.1.494946.10..22.4.2" /> <id nullFlavor="NA" /> < code codeSystem="local" code="BUN" displayName="BUN" /> <statusCode code="completed" /> <effectiveTime value="679020174092" /> < value unit="mg/dl" xsi:type="PQ" value="13" /> <referenceRange> <observationRange> <text>7-18</text> </ observationRange> </referenceRange> </observation> </ component> <component> <observation moodCode="EVN" classCode="OBS"> <templateId root="16.840.1.371277.10.4.2" /> <id nullFlavor="NA" /> <code codeSystem="local" code="CA" displayName= "CALCIUM" /> <statusCode code="completed" /> <effectiveTime value="494885794605" /> <value unit="mg/dl" xsi:type="PQ" value="8.9" / > <referenceRange> <observationRange> <text>8.5 -10.1</text> </observationRange> </referenceRange> </ observation> </component> <component> <observation moodCode= "EVN" classCode="OBS"> <templateId root="07.10.840.1.818171.03.13.22.4.2 " /> <id nullFlavor="NA" /> <code codeSystem="local" code="CL " displayName="CHLORIDE" /> <statusCode code="completed" /> < effectiveTime value="440767812134" /> <value unit="mmol/L" xsi:type="PQ " value="96" /> <interpretationCode codeSystem="local" code="L" /> <referenceRange> <observationRange> <text>98-107</ text> </observationRange> </referenceRange> </ observation> </component> <component> <observation moodCode= "EVN" classCode="OBS"> <templateId root="07.10.840.1.967155.10..4.2 " /> <id nullFlavor="NA" /> <code codeSystem="local" code="CO2 " displayName="CO2" /> <statusCode code="completed" /> < effectiveTime value="058252003768" /> <value unit="mmol/L" xsi:type="PQ " value="30.7" /> <referenceRange> <observationRange> <text>21.0-32.0</text> </observationRange> </ referenceRange> </observation> </component> <component> <observation moodCode="EVN" classCode="OBS"> <templateId root= "16.840.1.716809.10..4.2" /> <id nullFlavor="NA" /> < code codeSystem="local" code="GLU" displayName="GLUCOSE" /> < statusCode code="completed" /> <effectiveTime value="317265848833" /> <value unit="mg/dl" xsi:type="PQ" value="100" /> < referenceRange> <observationRange> <text>70-110</text> </observationRange> </referenceRange> </observation> </component> <component> <observation moodCode="EVN" classCode ="OBS"> <templateId root="07.10.840.1.024607...4.2" /> < id nullFlavor="NA" /> <code codeSystem="local" code="K" displayName= "POTASSIUM" /> <statusCode code="completed" /> <effectiveTime value="" /> <value unit="mmol/L" xsi:type="PQ" value="4.5" /> <referenceRange> <observationRange> <text> 3.5-5.1</text> </observationRange> </referenceRange> </observation> </component> <component> <observation moodCode= "EVN" classCode="OBS"> <templateId root="07.10.840.1.101533.10...4.2 " /> <id nullFlavor="NA" /> <code codeSystem="local" code="AST " displayName="AST" /> <statusCode code="completed" /> < effectiveTime value="768699513060" /> <value unit="U/L" xsi:type="PQ" value="31" /> <referenceRange> <observationRange> <text>15-37</text> </observationRange> </referenceRange > </observation> </component> <component> <observation moodCode="EVN" classCode="OBS"> <templateId root= "07.10.840.1.604965.10..22.4.2" /> <id nullFlavor="NA" /> < code codeSystem="local" code="ALT" displayName="ALT" /> <statusCode code="completed" /> <effectiveTime value="974867097066" /> < value unit="U/L" xsi:type="PQ" value="29" /> <referenceRange> <observationRange> <text>12-78</text> </ observationRange> </referenceRange> </observation> </ component> <component> <observation moodCode="EVN" classCode="OBS"> <templateId root="07.10.840.1.174630.10..22.4.2" /> <id nullFlavor="NA" /> <code codeSystem="local" code="AGAP" displayName= "AGAP" /> <statusCode code="completed" /> <effectiveTime value ="183679505571" /> <value unit="" xsi:type="PQ" value="8.8" /> <referenceRange> <observationRange> <text>6.0-16.0</ text> </observationRange> </referenceRange> </ observation> </component> <component> <observation moodCode= "EVN" classCode="OBS"> <templateId root="07.10.840.1.349868..20.22.4.2 " /> <id nullFlavor="NA" /> <code codeSystem="local" code="BN/ CR" displayName="BN/CR" /> <statusCode code="completed" /> < effectiveTime value="032892320145" /> <value unit="" xsi:type="PQ" value="13.0" /> <referenceRange> <observationRange> <text>6.0-20.0</text> </observationRange> </ referenceRange> </observation> </component> </organizer> </entry > <entry> <organizer moodCode="EVN" classCode="BATTERY"> <templateId root="216.840.1.527349.10...4.1" /> <id nullFlavor="NA" /> <code codeSystem="local" code="TSH" displayName="HTSH" /> <statusCode code= "completed" /> <component> <observation moodCode="EVN" classCode= "OBS"> <templateId root="216.840.1.161872.10...4.2" /> < id nullFlavor="NA" /> <code codeSystem="local" code="TSH" displayName= "HTSH" /> <statusCode code="completed" /> <effectiveTime value ="051661843226" /> <value unit="uiU/ml" xsi:type="PQ" value="1.50" /> <referenceRange> <observationRange> <text>0.35- 3.74</text> </observationRange> </referenceRange> </ observation> </component> </organizer> </entry> <entry> <organizer moodCode="EVN" classCode="BATTERY"> <templateId root= "216.840.1.064913.10..4.1" /> <id nullFlavor="NA" /> <code codeSystem="local" code="VIT B12" displayName="VITAMIN B12" /> <statusCode code="completed" /> <component> <observation moodCode="EVN" classCode="OBS"> <templateId root="07.10.840.1.445991.10..22.4.2" /> <id nullFlavor="NA" /> <code codeSystem="local" code="VITB12" displayName="VIT B12" /> <statusCode code="completed" /> < effectiveTime value="369173460544" /> <value unit="pg/ml" xsi:type="PQ " value="1096" /> <interpretationCode codeSystem="local" code="H" /> <referenceRange> <observationRange> <text>200- 900</text> </observationRange> </referenceRange> </ observation> </component> </organizer> </entry> <entry> <organizer moodCode="EVN" classCode="BATTERY"> <templateId root= "07.10.840.1.279600.10..4.1" /> <id nullFlavor="NA" /> <code codeSystem="local" code="CBC AUTO" displayName="CBC/ AUTO DIFF" /> < statusCode code="completed" /> <component> <observation moodCode= "EVN" classCode="OBS"> <templateId root="07.10.840.1.347533.10..22.4.2 " /> <id nullFlavor="NA" /> <code codeSystem="local" code="WBC " displayName="WHITE BLOOD COUNT" /> <statusCode code="completed" /> <effectiveTime value="783956600257" /> <value unit="10" xsi: type="PQ" value="3.51" /> <interpretationCode codeSystem="local" code= "L" /> <referenceRange> <observationRange> < text>4.60-10.20</text> </observationRange> </referenceRange > </observation> </component> <component> <observation moodCode="EVN" classCode="OBS"> <templateId root= "216.840.1.115811.10.20.22.4.2" /> <id nullFlavor="NA" /> < code codeSystem="local" code="HCT" displayName="HEMATOCRIT" /> < statusCode code="completed" /> <effectiveTime value="014664578895" /> <value unit="%" xsi:type="PQ" value="40.9" /> < interpretationCode codeSystem="local" code="L" /> <referenceRange> <observationRange> <text>42.0-52.0</text> </ observationRange> </referenceRange> </observation> </ component> <component> <observation moodCode="EVN" classCode="OBS"> <templateId root="07.10.840.1.339828.10.22.4.2" /> <id nullFlavor="NA" /> <code codeSystem="local" code="HGB" displayName= "HEMOGLOBIN" /> <statusCode code="completed" /> < effectiveTime value="879240016626" /> <value unit="g/dl" xsi:type="PQ" value="15.0" /> <referenceRange> <observationRange> <text>14.0-18.0</text> </observationRange> </ referenceRange> </observation> </component> <component> <observation moodCode="EVN" classCode="OBS"> <templateId root= "16.840.1.568325.10.20.22.4.2" /> <id nullFlavor="NA" /> < code codeSystem="local" code="PLT.COUT" displayName="PLATELET COUNT" /> <statusCode code="completed" /> <effectiveTime value="759904174039" / > <value unit="10" xsi:type="PQ" value="219" /> < referenceRange> <observationRange> <text>142-424</text> </observationRange> </referenceRange> </observation > </component> <component> <observation moodCode="EVN" classCode="OBS"> <templateId root="16.840.1.605609.10.20.22.4.2" /> <id nullFlavor="NA" /> <code codeSystem="local" code="RBC" displayName="RBC" /> <statusCode code="completed" /> < effectiveTime value="450483950428" /> <value unit="10" xsi:type="PQ" value="3.96" /> <interpretationCode codeSystem="local" code="L" /> <referenceRange> <observationRange> <text>4.70- 6.10</text> </observationRange> </referenceRange> </ observation> </component> <component> <observation moodCode= "EVN" classCode="OBS"> <templateId root="16.840.1.452419.10.20.22.4.2 " /> <id nullFlavor="NA" /> <code codeSystem="local" code="MCV " displayName="MCV" /> <statusCode code="completed" /> < effectiveTime value="612605070804" /> <value unit="fl" xsi:type="PQ" value="103.3" /> <interpretationCode codeSystem="local" code="H" /> <referenceRange> <observationRange> <text>80.0- 100.0</text> </observationRange> </referenceRange> </ observation> </component> <component> <observation moodCode= "EVN" classCode="OBS"> <templateId root="16.840.1.072144.10.20.22.4.2 " /> <id nullFlavor="NA" /> <code codeSystem="local" code="MCH " displayName="MCH" /> <statusCode code="completed" /> < effectiveTime value="" /> <value unit="pg" xsi:type="PQ" value="37.9" /> <interpretationCode codeSystem="local" code="H" /> <referenceRange> <observationRange> <text>26.0- 34.0</text> </observationRange> </referenceRange> </ observation> </component> <component> <observation moodCode= "EVN" classCode="OBS"> <templateId root="07.10.840.1.238518...4.2 " /> <id nullFlavor="NA" /> <code codeSystem="local" code= "MCHC" displayName="MCHC" /> <statusCode code="completed" /> < effectiveTime value="" /> <value unit="g/dl" xsi:type="PQ" value="36.7" /> <referenceRange> <observationRange> <text>29.0-37.0</text> </observationRange> </ referenceRange> </observation> </component> <component> <observation moodCode="EVN" classCode="OBS"> <templateId root= "07.10.840.1.393570.10.20.22.4.2" /> <id nullFlavor="NA" /> < code codeSystem="local" code="RDW" displayName="RDW" /> <statusCode code="completed" /> <effectiveTime value="" /> < value unit="%" xsi:type="PQ" value="12.6" /> <referenceRange> <observationRange> <text>11.5-14.5</text> </ observationRange> </referenceRange> </observation> </ component> <component> <observation moodCode="EVN" classCode="OBS"> <templateId root="216.840.1.409450.10.2022.4.2" /> <id nullFlavor="NA" /> <code codeSystem="local" code="MPV" displayName="MPV " /> <statusCode code="completed" /> <effectiveTime value= "201004459809" /> <value unit="fl" xsi:type="PQ" value="8.20" /> <referenceRange> <observationRange> <text /> </observationRange> </referenceRange> </observation> < /component> <component> <observation moodCode="EVN" classCode="OBS" > <templateId root="07.10.840.1.621211.03.13.224.2" /> <id nullFlavor="NA" /> <code codeSystem="local" code="GRAN%" displayName="GRAN%" /> <statusCode code="completed" /> < effectiveTime value="597485835240" /> <value unit="%" xsi:type="PQ " value="42.0" /> <referenceRange> <observationRange> <text>37.0-80.0</text> </observationRange> </ referenceRange> </observation> </component> <component> <observation moodCode="EVN" classCode="OBS"> <templateId root= "07.10.840.1.309966.20.4.2" /> <id nullFlavor="NA" /> < code codeSystem="local" code="LYMPH%" displayName="LYMPH%" /> < statusCode code="completed" /> <effectiveTime value="126993481250" /> <value unit="%" xsi:type="PQ" value="27.60" /> < referenceRange> <observationRange> <text>10.00-50.00</ text> </observationRange> </referenceRange> </ observation> </component> <component> <observation moodCode= "EVN" classCode="OBS"> <templateId root="2.16.840.1.943164.10.20.22.4.2 " /> <id nullFlavor="NA" /> <code codeSystem="local" code= "MONO%" displayName="MONO%" /> <statusCode code="completed" /> <effectiveTime value="874930087516" /> <value unit="%" xsi:type="PQ" value="25.90" /> <interpretationCode codeSystem="local" code="H" /> <referenceRange> <observationRange> <text>0.00-12.00</text> </observationRange> </ referenceRange> </observation> </component> <component> <observation moodCode="EVN" classCode="OBS"> <templateId root= "2.16.840.1.906536.10.20.22.4.2" /> <id nullFlavor="NA" /> < code codeSystem="local" code="EOS%" displayName="EOS%" /> < statusCode code="completed" /> <effectiveTime value="531938451022" /> <value unit="%" xsi:type="PQ" value="3.40" /> < referenceRange> <observationRange> <text>0.00-7.00</text > </observationRange> </referenceRange> </observation > </component> <component> <observation moodCode="EVN" classCode="OBS"> <templateId root="07.10.840.1.332609.10.20.22.4.2" /> <id nullFlavor="NA" /> <code codeSystem="local" code="BASO&#37 ;" displayName="BASO%" /> <statusCode code="completed" /> <effectiveTime value="" /> <value unit="%" xsi:type="PQ " value="1.10" /> <referenceRange> <observationRange> <text>0.00-2.50</text> </observationRange> </ referenceRange> </observation> </component> <component> <observation moodCode="EVN" classCode="OBS"> <templateId root= "840.1.375083.10.4.2" /> <id nullFlavor="NA" /> < code codeSystem="local" code="GRAN#" displayName="GRAN#" /> < statusCode code="completed" /> <effectiveTime value="" /> <value unit="10" xsi:type="PQ" value="1.47" /> < interpretationCode codeSystem="local" code="L" /> <referenceRange> <observationRange> <text>2.00-6.90</text> </ observationRange> </referenceRange> </observation> </ component> <component> <observation moodCode="EVN" classCode="OBS"> <templateId root="840.1.132416.10.2022.4.2" /> <id nullFlavor="NA" /> <code codeSystem="local" code="LYMPH#" displayName= "LYMPH#" /> <statusCode code="completed" /> <effectiveTime value="" /> <value unit="10" xsi:type="PQ" value="0.97" /> <referenceRange> <observationRange> <text>0.60 -3.40</text> </observationRange> </referenceRange> </ observation> </component> <component> <observation moodCode= "EVN" classCode="OBS"> <templateId root="07.10.840.1.239210.10..4.2 " /> <id nullFlavor="NA" /> <code codeSystem="local" code= "MONO#" displayName="MONO#" /> <statusCode code="completed" /> <effectiveTime value="766099073484" /> <value unit="10" xsi:type="PQ " value="0.91" /> <interpretationCode codeSystem="local" code="H" /> <referenceRange> <observationRange> <text>0.00- 0.90</text> </observationRange> </referenceRange> </ observation> </component> <component> <observation moodCode= "EVN" classCode="OBS"> <templateId root="840.1.065912.03.13.22.4.2 " /> <id nullFlavor="NA" /> <code codeSystem="local" code="EOS #" displayName="EOS#" /> <statusCode code="completed" /> < effectiveTime value="826503315339" /> <value unit="10" xsi:type="PQ" value="0.12" /> <referenceRange> <observationRange> <text>0.00-0.50</text> </observationRange> </ referenceRange> </observation> </component> <component> <observation moodCode="EVN" classCode="OBS"> <templateId root= "07.10.840.1.305766.03.13.22.4.2" /> <id nullFlavor="NA" /> < code codeSystem="local" code="BASO#" displayName="BASO#" /> < statusCode code="completed" /> <effectiveTime value="569703681969" /> <value unit="10" xsi:type="PQ" value="0.04" /> <referenceRange > <observationRange> <text>0.00-0.20</text> < /observationRange> </referenceRange> </observation> </ component> <component> <observation moodCode="EVN" classCode="OBS"> <templateId root="07.10.840.1.758321.10.20.22.4.2" /> <id nullFlavor="NA" /> <code codeSystem="local" code="SEGS" displayName= "SEGS" /> <statusCode code="completed" /> <effectiveTime value ="572581376285" /> <value unit="%" xsi:type="PQ" value="48" /> <referenceRange> <observationRange> <text>40-60</ text> </observationRange> </referenceRange> </ observation> </component> <component> <observation moodCode= "EVN" classCode="OBS"> <templateId root="07.10.840.1.799947.10..22.4.2 " /> <id nullFlavor="NA" /> <code codeSystem="local" code= "LYMPHS" displayName="LYMPHS" /> <statusCode code="completed" /> <effectiveTime value="954939924032" /> <value unit="%" xsi:type ="PQ" value="29" /> <referenceRange> <observationRange> <text>20-40</text> </observationRange> </ referenceRange> </observation> </component> <component> <observation moodCode="EVN" classCode="OBS"> <templateId root= "840.1.534689.22.4.2" /> <id nullFlavor="NA" /> < code codeSystem="local" code="MONOS" displayName="MONOS" /> < statusCode code="completed" /> <effectiveTime value="758776052492" /> <value unit="%" xsi:type="PQ" value="20" /> < interpretationCode codeSystem="local" code="H" /> <referenceRange> <observationRange> <text>4-8</text> </ observationRange> </referenceRange> </observation> </ component> <component> <observation moodCode="EVN" classCode="OBS"> <templateId root="07.10.840.1.712639.03.13.22.4.2" /> <id nullFlavor="NA" /> <code codeSystem="local" code="EOS" displayName="EOS " /> <statusCode code="completed" /> <effectiveTime value= "432688258086" /> <value unit="%" xsi:type="PQ" value="3" /> <referenceRange> <observationRange> <text>0-5</text > </observationRange> </referenceRange> </observation > </component> <component> <observation moodCode="EVN" classCode="OBS"> <templateId root="07.10.840.1.803806.03.13.22.4.2" /> <id nullFlavor="NA" /> <code codeSystem="local" code="ANISO" displayName="ANISO" /> <statusCode code="completed" /> < effectiveTime value="088849062514" /> <value unit="" xsi:type="PQ" value="1+" /> <referenceRange> <observationRange> <text /> </observationRange> </referenceRange> </ observation> </component> <component> <observation moodCode= "EVN" classCode="OBS"> <templateId root="07.10.840.1.695322.10..4.2 " /> <id nullFlavor="NA" /> <code codeSystem="local" code= "META" displayName="META" /> <statusCode code="completed" /> < effectiveTime value="331091254137" /> <value unit="%" xsi:type="PQ " value="1+" /> <interpretationCode codeSystem="local" code="H" /> <referenceRange> <observationRange> <text>0-0</ text> </observationRange> </referenceRange> </ observation> </component> </organizer> </entry> <entry> <organizer moodCode="EVN" classCode="BATTERY"> <templateId root= "07.10.840.1.416433.10..22.4.1" /> <id nullFlavor="NA" /> <code codeSystem="local" code="LIPID" displayName="LIPID PANEL" /> <statusCode code="completed" /> <component> <observation moodCode="EVN" classCode="OBS"> <templateId root="16.840.1.624323.10..22.4.2" /> <id nullFlavor="NA" /> <code codeSystem="local" code="TRIG" displayName="TRIGLYCERIDES" /> <statusCode code="completed" /> <effectiveTime value="011723703667" /> <value unit="mg/dl" xsi:type= "PQ" value="98" /> <referenceRange> <observationRange> <text>0-150</text> </observationRange> </ referenceRange> </observation> </component> <component> <observation moodCode="EVN" classCode="OBS"> <templateId root= "216.840.1.363869.10..22.4.2" /> <id nullFlavor="NA" /> < code codeSystem="local" code="CHOL" displayName="CHOLESTEROL" /> < statusCode code="completed" /> <effectiveTime value="474451219210" /> <value unit="mg/dl" xsi:type="PQ" value="192" /> < referenceRange> <observationRange> <text>0-200</text> </observationRange> </referenceRange> </observation> </component> <component> <observation moodCode="EVN" classCode= "OBS"> <templateId root="216.840.1.054853.10..4.2" /> < id nullFlavor="NA" /> <code codeSystem="local" code="HDL" displayName= "HDL CHOLESTEROL" /> <statusCode code="completed" /> < effectiveTime value="384255561965" /> <value unit="mg/dl" xsi:type="PQ " value="65" /> <referenceRange> <observationRange> <text>40-</text> </observationRange> </referenceRange > </observation> </component> <component> <observation moodCode="EVN" classCode="OBS"> <templateId root= "216.840.1.811423.10..22.4.2" /> <id nullFlavor="NA" /> < code codeSystem="local" code="LDL" displayName="LDL" /> <statusCode code="completed" /> <effectiveTime value="380800070524" /> < value unit="mg/dl" xsi:type="PQ" value="107" /> <referenceRange> <observationRange> <text>0-130</text> </ observationRange> </referenceRange> </observation> </ component> </organizer> </entry></section> Encounters ACCT No. Visit Date/Time Discharge Status Pt. Type Provider Facility Loc./Unit Complaint [id number] 05/08/2017 08:55:00 05/08/2017 [id number] 05/07/2017 13:03:00 05/07/2017 13:03:00 DIS Outpatient [facility] LAB [id number] 10/17/2016 07:16:00 10/17/2016 07:16:00 DIS Outpatient [facility]BAR[facility] RAD [id number] 10/03/2016 08:32:00 10/03/2016 08:32:00 [facility] [id number] 09/19/2016 15:54:00 09/19/2016 15:54:00 [facility] [id number] 08/18/2016 08:56:00 08/18/2016 08:56:00 [facility] [id number] 05/30/2016 13:02:00 05/30/2016 13:02:00 [facility] [id number] 01/29/2016 13:57:50 01/29/2016 23:59:59 [facility] [id number] 12/06/2015 09:23:00 12/06/2015 09:23:00 DIS Outpatient COELHOJUAN LUIS [facility] RAD [id number] 11/19/2015 09:43:00 11/19/2015 09:43:00 [facility] [id number] 10/23/2015 17:42:00 10/23/2015 21:04:00 DIS Emergency SUN [facility]DAL[facility] ER [id number] 09/17/2015 07:29:00 09/17/2015 07:29:00 DIS Outpatient ALBAROWM SALCEDO [facility] LX [id number] 03/15/2015 18:21:00 03/15/2015 20:40:00 DIS Emergency PEDRO VASQUEZ [facility] ER [id number] 01/16/2015 15:38:00 01/16/2015 16:17:00 DIS Emergency PEDRO VASQUEZ [facility] ER [id number] 01/06/2015 19:57:00 01/06/2015 22:12:00 DIS Emergency KEKE TIAN [facility] ER [id number] 10/02/2014 21:27:00 10/02/2014 23:35:00 DIS Emergency UZIEL TIRADO [facility] ER [id number] 09/29/2014 09:22:00 09/29/2014 09:22:00 [facility] [id number] 09/26/2014 14:51:00 09/26/2014 14:51:00 [facility] [id number] 09/05/2014 08:01:00 09/05/2014 08:01:00 DIS Outpatient WM IRVIN [facility] LX [id number] 08/30/2014 09:16:00 08/30/2014 09:16:00 [facility] [id number] 05/13/2014 15:50:00 05/13/2014 18:05:00 DIS Emergency ASMITA DAVIES [facility] ER [id number] 03/23/2014 16:56:00 03/23/2014 18:35:00 DIS Emergency TAMIKA YOUNG [facility] ER [id number] 11/04/2013 08:59:00 11/04/2013 08:59:00 DIS Outpatient AVIVA [facility] RAD [id number] 11/01/2013 15:13:00 11/01/2013 15:13:00 DIS Outpatient CHICAS, [facility] RAD [id number] 10/27/2013 12:24:00 10/27/2013 12:24:00 [facility] [id number] 10/25/2013 15:33:00 10/25/2013 15:33:00 DIS Outpatient CHICAS, [facility] RAD [id number] 08/25/2013 09:01:00 08/25/2013 09:01:00 DIS Outpatient WM IRVIN [facility] [id number] 05/09/2013 10:10:00 05/09/2013 10:10:00 DIS Outpatient Jim KHAN [facility] LAB [id number] 03/06/2014 00:00:00 Document Registration
[2017-05-17] MEDS ORDERED: LORazepam 1 MG (ATIVAN) TAB PO PRN (21:30)
[2017-05-17 21:31] VITALS: BP 128/82
[2017-05-17 22:00] VITALS: BP 139/77
[2017-05-17 23:00] VITALS: BP 143/81
[2017-05-18] VITALS: BP 150/71
[2017-05-18] MEDS ORDERED: traZODone 50 MG (DESYREL) TAB ONE (00:50)
[2017-05-18 01:00] VITALS: BP 160/94
[2017-05-18] MEDS ORDERED: traZODone 50 MG (DESYREL) TAB PO PRN (01:15)
[2017-05-18 02:00] VITALS: BP 160/86
[2017-05-18 03:00] VITALS: BP 152/89
[2017-05-18 04:00] VITALS: BP 144/79
--- NOTE | 2017-05-18 04:10 | Short Stay Summary-Hospitalist ---
HPI History of Present Illness: HPI/Chief Complaint 81 yo male was here visiting family from out of town when he had slurring of speech and right sided facial droop and right sided weakness. Presented to the ER and given TPA with resolution of symptoms. Pt admitted for further W/U and evaluation and began to have a re-occurrence of symptoms around 1 this am. Pt has been managed by EICU overnight. Dr. Suarez of [facility] stroke team was contacted and asks for patient to be transferred to . I have discussed with nurse and patient is stable for transfer. This patient has not been seen by me , and since time is of the essence and life flight can transfer immediately, I will be unable to make it to facility before transfer. Source: RN/MD Exam Limitations: other (not examined) Date Seen 05/18/17 Time Seen by Provider: 00:00 Attending Physician Sera Garcia MD PCP No,Local Physician Referring Physician Date of Admission May 17, 2017 at 6:45 pm Home Medications & Allergies Home Medications Reviewed patient Home Medication Reconciliation Form Allergies Allergies Coded Allergies No Known Drug Allergies (Mchmxvyung53/24/17) Past Jaxvcts-Dlzvvk-Aejzms Hx Patient Social History Marrital Status: Employed/Student: retired Alcohol Use: Occasionally Uses Recreational Drug Use: No Smoking Status: Never a Smoker Physical Abuse Screen: No Sexual Abuse: No Recent Foreign Travel: No Contact w/other who traveled: No Recent Hopitalizations: No Recent Infectious Disease Expo: No Immunizations Up To Date Date of Pneumonia Vaccine: Mar 17, 2017 Date of Influenza Vaccine: Mar 17, 2017 Seasonal Allergies Seasonal Allergies: No Surgeries Yes (triple a repair, hernia repair, cataract) Eye Surgery Respiratory No Cardiovascular Yes Hypertension Neurological No Genitourinary Yes Prostate Problems Gastrointestinal No Musculoskeletal No Endocrine History of Endocrine Disorders: No HEENT History of HEENT Disorders: No Cancer No Psychosocial History of Psychiatric Problem: Yes Behavioral Health Disorders: Sleep Difficulties Integumentary History of Skin or Integumenta: No Review of Systems Constitutional: see HPI Physical Exam Physical Exam Vital Signs Vital Sign - Last 12Hours 05/17/17 05/17/17 17:05 18:47 Temp 98.1 Pulse 70 Resp 20 B/P (MAP) 149/89 (109) Pulse Ox 94 O2 Delivery Room Air Capillary Refill : Less Than 3 Seconds General Appearance: Other (patient not seen by me) Results Results/Procedures Lab Laboratory Tests 05/17/17 17:10 Short Stay Diagnosis Discharge Diagnosis-Short Stay Admission Diagnosis stroke- left MCA distribution HTN Final Discharge Diagnosis 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 for specialty care Clinical Quality Measures DVT/VTE Risk/Contraindication: Risk Factor Score Per Nursin RFS Level Per Nursing on Admit: 2=Moderate Stroke: Date of last known well: May 17, 2017 Time of last known well: 14:30 Symptoms onset unknown: No SERA GARCIA MD May 18, 2017 4:10 am
== END 2017-05-18 04:45 | disposition short-term general hospital (02) | DRG 62 ==
LOC: ER 17:06 → ICU 18:45
PROVIDERS: ADMIT Internal Medicine; ATTEND Internal Medicine
DX: I63.312 Cerebral infarction due to thrombosis of left middle cerebral artery (principal); G81.91 Hemiplegia, unspecified affecting right dominant side; R29.810 Facial weakness; R47.81 Slurred speech; R29.705 NIHSS score 5; I10 Essential (primary) hypertension; I71.4 Abdominal aortic aneurysm, without rupture; I44.0 Atrioventricular block, first degree; I45.10 Unspecified right bundle-branch block; G47.9 Sleep disorder, unspecified; N42.9 Disorder of prostate, unspecified
CPT/HCPCS: 36415; 70450; 70496; 70498; 71010; 80053; 81000; 82962; 84484; 85025; 85379; 85610; 85730; 92977; 93005; 93041